=== PATIENT | male | born 1970 | race Caucasian/White ===

== ENCOUNTER 2016-11-16 13:36 | Inpatient (IN) | payer OTHER ==
[2016-11-16] MEDS ORDERED: Pantoprazole 40 MG Vial IVPUSH ONE (13:56)
[2016-11-16] MEDS ORDERED: Sodium Chloride 0.9% 2.5 ML Syringe FLUSH PRN (13:56)
[2016-11-16] MEDS ORDERED: Sodium Chloride 0.9% 1,000 ML IV ONE ×3 (13:56→19:52)
[2016-11-16] MEDS ORDERED: HYDROmorphone 2 MG/ML Syringe IVPUSH ONE ×2 (13:56→15:48)
[2016-11-16] MEDS ORDERED: Ondansetron 4 MG/2 ML SDV IVPUSH ONE (13:56)
[2016-11-16] MEDS ORDERED: Sodium Chloride 0.9% 10 ML Syringe FLUSH PRN (13:56)
--- NOTE | 2016-11-16 14:01 | EDM.PDOC ---
ED HPI GENERAL MEDICAL PROBLEM - General Chief Complaint: Chest Pain Stated Complaint: CHEST PAIN Time Seen by Provider: 11/16/16 13:38 - History of Present Illness INITIAL COMMENTS - FREE TEXT/NARRATIVE: HISTORY AND PHYSICAL: History of present illness: The patient is a 46-year-old male with a history of insulin requiring diabetes for which he was told by his physician here and a half ago he no longer needed the insulin and that he could monitor his blood sugars at home and watch his diet as his blood sugars have normalized. The patient presents today with sudden onset of lower midsternal chest pain and right upper quadrant pain that started suddenly while he was doing chores with his brother. It started yesterday afternoon and has been constant all night and has been associated with nausea and vomiting and dry heaves occasionally with blood seen. He did not take anything for medications. He has not had diarrhea and is not short of breath. He denies any coughing fevers or chills recently and has no urinary complaints nor any history. He says that there is more pain with any movement as well as with deep breaths and his abdominal pain has intensified since the vomiting. Patient has a history of pancreatitis requiring hospitalization in [place] about 2-1/2 years ago but he still has his gallbladder and he and his do not know why he got the pancreatitis. The patient denies any left-sided chest pain or left-sided abdominal pain. He states that the pain on the left side extends down his abdomen but is mostly localized in the right upper area. Patient denies any cardiac history Review of systems: As per history of present illness and below otherwise all systems reviewed and negative. Past medical history: As per history of present illness and as reviewed below otherwise noncontributory. Surgical history: As per history of present illness and as reviewed below otherwise noncontributory. Social history: No reported history of drug or alcohol abuse. Family history: As per history of present illness and as reviewed below otherwise noncontributory. Physical exam: General: Well-developed mildly overweight male who looks uncomfortable in the room and is holding the right side of his abdomen. His vital signs of been noted by me. HEENT: Atraumatic, normocephalic, pupils reactive, negative for conjunctival pallor or scleral icterus, mucous membranes tacky, throat clear, neck supple, nontender, trachea midline. Lungs: Clear to auscultation, breath sounds equal bilaterally, chest nontender. Heart: S1S2, regular, negative for clicks, rubs, or JVD. Abdomen: Soft, nondistended, moderate tenderness to palpation at the epigastrium and the right upper abdominal and right mid abdominal areas with some voluntary guarding but no involuntary guarding or rebound. Hypoactive bowel sounds. Negative for masses or hepatosplenomegaly. Negative for costovertebral tenderness. Pelvis: Stable nontender. Genitourinary: Deferred. Rectal: Deferred. Extremities: Atraumatic, negative for cords or calf pain. Neurovascular unremarkable. Neuro: Awake, alert, oriented. Cranial nerves II through XII unremarkable. Cerebellum unremarkable. Motor and sensory unremarkable throughout. Exam nonfocal. Diagnostics: EKG CBC CMP troponin amylase lipase serum ketones UA chest x-ray CT scan of the abdomen and pelvis Therapeutics: IV O2 monitor IV fluids Protonix Zofran Dilaudid Rocephin 1548: Testing results were discussed with the patient and the had left to go miner pick the children and we will discuss them with her when she returns. I' ve also discussed the case with our hospitalist Dr. Toscano. We will go ahead and admit to the hospital for pancreatitis and pneumonia and I have added a lactic acid and 2 blood cultures to complete the workup. The hospitalist would like Rocephin to be given. I will also give more IV fluids and more pain medication. Patient has not had any vomiting in the ER. Impression: Pancreatitis, retrocardiac pneumonia Definitive disposition and diagnosis as appropriate pending reevaluation and review of above. Mid-Sternal Chest Pain Score (Numeric/FACES): 10 - Related Data Allergies Allergy/AdvReac Type Severity Reaction Status Date / Time No Known Allergies Allergy Verified 11/16/16 13:46 Home Meds: Home Meds . [No Known Home Meds] 04/20/15 [History] Past Medical History Gastrointestinal History: Reports: Pancreatitis Other Gastrointestinal History: dx with pancreatitis 6 years ago. Endocrine/Metabolic History: Reports: Diabetes, type I Social & Family History - Family History Family Medical History: Noncontributory - Tobacco Use Smoking Status *Q: Never Smoker Years of Tobacco use: 2 Packs/Tins Daily: 0.5 Used Tobacco, but Quit: Yes Month Tobacco Last Used: 01/2015 - Recreational Drug Use Recreational Drug Use: No ED ROS GENERAL - Review of Systems Review Of Systems: ROS reveals no pertinent complaints other than HPI. ED EXAM, GENERAL - Physical Exam Exam: See Below (See dictation) Course - Vital Signs Last Recorded V/S: Last Vital Signs Temp 35.9 C 11/16/16 13:43 Pulse 95 11/16/16 13:43 Resp 18 11/16/16 13:43 BP 174/104 H 11/16/16 13:43 Pulse Ox 98 11/16/16 13:43 - Orders/Labs/Meds Orders: Active Orders 24 hr Category Date Time Status Patient Status [ADT] Stat ADT 11/16/16 15:49 Ordered Blood Glucose Check, Bedside [RC] ONETIME Care 11/16/16 13:55 Active Cardiac Monitoring [RC] . DIRECTED Care 11/16/16 13:55 Active EKG Documentation Completion [RC] STAT Care 11/16/16 13:55 Active Oxygen Therapy, ED [RC] ASDIRECTED Care 11/16/16 13:55 Active Pulse Oximetry [RC] ASDIRECTED Care 11/16/16 13:55 Active CULTURE BLOOD [BC] Stat Lab 11/16/16 15:48 Ordered CULTURE BLOOD [BC] Stat Lab 11/16/16 15:48 Ordered LACTIC ACID,WHOLE BLOOD [BG] Stat Lab 11/16/16 15:47 Ordered UA W/MICROSCOPIC [URIN] Stat Lab 11/16/16 13:55 Uncollected Sodium Chloride 0.9% [Normal Saline] 1,000 ml Med 11/16/16 15:48 Ordered IV STAT Sodium Chloride 0.9% [Saline Flush] Med 11/16/16 13:56 Active 10 ml FLUSH ASDIRECTED PRN Sodium Chloride 0.9% [Saline Flush] Med 11/16/16 13:56 Active 2.5 ml FLUSH ASDIRECTED PRN cefTRIAXone [Rocephin in Dextrose,Iso-Osm 1 GM/50 ML] 1 Med 11/16/16 15:48 Ordered gm Premix Bag 1 bag IV ONETIME Blood Culture x2 Reflex Set [OM.PC] Stat Oth 11/16/16 15:48 Ordered Saline Lock Insert [OM.PC] Stat Oth 11/16/16 13:55 Ordered Medication Orders Sodium Chloride (Normal Saline) 1,000 mls @ 999 mls/hr IV STAT ONE Stop: 11/16/16 16:48 Ceftriaxone Sodium/Dextrose 1 (gm/ Premix) 50 mls @ 100 mls/hr IV ONETIME ONE Stop: 11/16/16 16:17 Sodium Chloride (Saline Flush) 10 ml FLUSH ASDIRECTED PRN PRN Reason: Keep Vein Open Sodium Chloride (Saline Flush) 2.5 ml FLUSH ASDIRECTED PRN PRN Reason: Keep Vein Open Labs: Laboratory Tests 11/16/16 11/16/16 11/16/16 Range/Units 13:40 13:40 13:40 WBC 13.00 H (4.0-11.0) K/uL RBC 5.04 (4.50-5.90) M/uL Hct 43.0 (38.0-50.0) % RDW Std Deviation 40.0 (28.0-62.0) fl RDW Coeff of Jessica 13 (11.0-15.0) % Plt Count 217 (150-400) K/uL MPV 12.10 H (7.40-12.00) fL Neut % (Auto) 83.4 H (48.0-80.0) % Lymph % (Auto) 5.7 L (16.0-40.0) % [place] % (Auto) 8.9 (0.0-15.0) % Eos % (Auto) 1.8 (0.0-7.0) % Baso % (Auto) 0.2 (0.0-1.5) % Neut # (Auto) 10.8 H (1.4-5.7) K/uL Lymph # (Auto) 0.7 (0.6-2.4) K/uL [place] # (Auto) 1.2 H (0.0-0.8) K/uL Eos # (Auto) 0.2 (0.0-0.7) K/uL Baso # (Auto) 0.0 (0.0-0.1) K/uL Nucleated RBC % 0.0 /100WBC Nucleated RBCs # 0 K/uL Sodium 133 L (136-146) mmol/L Potassium 3.9 (3.5-5.1) mmol/L Chloride 104 (98-110) mmol/L Carbon Dioxide 17 L (21-31) mmol/L BUN 11 (6.0-23.0) mg/dL Creatinine 0.7 (0.6-1.5) mg/dL Est Cr Clr Drug Dosing 115.92 mL/min Estimated GFR (MDRD) > 60.0 ml/min Glucose 218 H (60-110) mg/dL Calcium 8.5 L (8.8-10.8) mg/dL Total Bilirubin 0.7 (0.1-1.5) mg/dL AST 22 (5-40) IU/L ALT 38 (8-54) IU/L Alkaline Phosphatase 79 (40-150) Troponin I < 0.10 (0.0-0.29) NG/ML Total Protein 7.7 (6.0-8.0) g/dL Albumin 4.1 (3.5-5.0) g/dL Globulin 3.6 H (2.0-3.5) g/dL Albumin/Globulin Ratio 1.1 L (1.3-2.8) Amylase 77 (10-90) U/L Lipase 142 H (7-80) U/L Ketones (NEG) 11/16/16 Range/Units 13:40 WBC (4.0-11.0) K/uL RBC (4.50-5.90) M/uL Hct (38.0-50.0) % RDW Std Deviation (28.0-62.0) fl RDW Coeff of Jessica (11.0-15.0) % Plt Count (150-400) K/uL MPV (7.40-12.00) fL Neut % (Auto) (48.0-80.0) % Lymph % (Auto) (16.0-40.0) % [place] % (Auto) (0.0-15.0) % Eos % (Auto) (0.0-7.0) % Baso % (Auto) (0.0-1.5) % Neut # (Auto) (1.4-5.7) K/uL Lymph # (Auto) (0.6-2.4) K/uL [place] # (Auto) (0.0-0.8) K/uL Eos # (Auto) (0.0-0.7) K/uL Baso # (Auto) (0.0-0.1) K/uL Nucleated RBC % /100WBC Nucleated RBCs # K/uL Sodium (136-146) mmol/L Potassium (3.5-5.1) mmol/L Chloride (98-110) mmol/L Carbon Dioxide (21-31) mmol/L BUN (6.0-23.0) mg/dL Creatinine (0.6-1.5) mg/dL Est Cr Clr Drug Dosing mL/min Estimated GFR (MDRD) ml/min Glucose (60-110) mg/dL Calcium (8.8-10.8) mg/dL Total Bilirubin (0.1-1.5) mg/dL AST (5-40) IU/L ALT (8-54) IU/L Alkaline Phosphatase (40-150) Troponin I (0.0-0.29) NG/ML Total Protein (6.0-8.0) g/dL Albumin (3.5-5.0) g/dL Globulin (2.0-3.5) g/dL Albumin/Globulin Ratio (1.3-2.8) Amylase (10-90) U/L Lipase (7-80) U/L Ketones NEGATIVE (NEG) Meds: Medications Generic Name Dose Route Start Last Admin Trade Name Freq PRN Reason Stop Dose Admin Sodium Chloride 1,000 mls @ 999 mls/hr 11/16/16 15:48 Normal Saline IV 11/16/16 16:48 STAT ONE Ceftriaxone Sodium/Dextrose 1 50 mls @ 100 mls/hr 11/16/16 15:48 gm/ Premix IV 11/16/16 16:17 ONETIME ONE Sodium Chloride 10 ml 11/16/16 13:56 Saline Flush FLUSH ASDIRECTED PRN Keep Vein Open Sodium Chloride 2.5 ml 11/16/16 13:56 Saline Flush FLUSH ASDIRECTED PRN Keep Vein Open Discontinued Medications Generic Name Dose Route Start Last Admin Trade Name Freq PRN Reason Stop Dose Admin Hydromorphone HCl 1 mg 11/16/16 13:56 11/16/16 14:06 Dilaudid IVPUSH 11/16/16 13:57 1 mg ONETIME ONE Administration Hydromorphone HCl 1 mg 11/16/16 15:48 Dilaudid IVPUSH 11/16/16 15:49 ONETIME ONE Sodium Chloride 1,000 mls @ 999 mls/hr 11/16/16 13:56 11/16/16 14:04 Normal Saline IV 11/16/16 14:56 999 mls/hr STAT ONE Administration Iopamidol 100 ml 11/16/16 15:15 11/16/16 15:16 Isovue Multipack-370 (76%) IVPUSH 11/16/16 15:16 100 ml ONETIME STA Administration Ondansetron HCl 4 mg 11/16/16 13:56 11/16/16 14:05 Zofran IVPUSH 11/16/16 13:57 4 mg ONETIME ONE Administration Pantoprazole Sodium 80 mg 11/16/16 13:56 11/16/16 14:06 Protonix Iv IVPUSH 11/16/16 13:57 80 mg .BOLUS ONE Administration Departure - Departure Time of Disposition: 15:51 Disposition: Admitted As Inpatient 67 Condition: good Clinical Impression: Pancreatitis Qualifiers: Chronicity: acute Pancreatitis type: unspecified pancreatitis type Acute pancreatitis complication: no infection or necrosis Qualified Code(s): K85.90 - Acute pancreatitis without necrosis or infection, unspecified Pneumonia Qualifiers: Pneumonia type: due to unspecified organism Laterality: unspecified laterality Lung location: unspecified part of lung Qualified Code(s): J18.9 - Pneumonia, unspecified organism Forms: ED Department Discharge - My Orders Last 24 Hours: My Active Orders 11/16/16 13:55 Blood Glucose Check, Bedside [RC] ONETIME Cardiac Monitoring [RC] . DIRECTED EKG Documentation Completion [RC] STAT Oxygen Therapy, ED [RC] ASDIRECTED Pulse Oximetry [RC] ASDIRECTED UA W/MICROSCOPIC [URIN] Stat Saline Lock Insert [OM.PC] Stat 11/16/16 13:56 Sodium Chloride 0.9% [Saline Flush] 10 ml FLUSH ASDIRECTED PRN Sodium Chloride 0.9% [Saline Flush] 2.5 ml FLUSH ASDIRECTED PRN 11/16/16 15:47 LACTIC ACID,WHOLE BLOOD [BG] Stat 11/16/16 15:48 CULTURE BLOOD [BC] Stat CULTURE BLOOD [BC] Stat Sodium Chloride 0.9% [Normal Saline] 1,000 ml IV STAT cefTRIAXone [Rocephin in Dextrose,Iso-Osm 1 GM/50 ML] 1 gm Premix Bag 1 bag IV ONETIME Blood Culture x2 Reflex Set [OM.PC] Stat 11/16/16 15:49 Patient Status [ADT] Stat - Assessment/Plan Last 24 Hours: My Active Orders 11/16/16 13:55 Blood Glucose Check, Bedside [RC] ONETIME Cardiac Monitoring [RC] . DIRECTED EKG Documentation Completion [RC] STAT Oxygen Therapy, ED [RC] ASDIRECTED Pulse Oximetry [RC] ASDIRECTED UA W/MICROSCOPIC [URIN] Stat Saline Lock Insert [OM.PC] Stat 11/16/16 13:56 Sodium Chloride 0.9% [Saline Flush] 10 ml FLUSH ASDIRECTED PRN Sodium Chloride 0.9% [Saline Flush] 2.5 ml FLUSH ASDIRECTED PRN 11/16/16 15:47 LACTIC ACID,WHOLE BLOOD [BG] Stat 11/16/16 15:48 CULTURE BLOOD [BC] Stat CULTURE BLOOD [BC] Stat Sodium Chloride 0.9% [Normal Saline] 1,000 ml IV STAT cefTRIAXone [Rocephin in Dextrose,Iso-Osm 1 GM/50 ML] 1 gm Premix Bag 1 bag IV ONETIME Blood Culture x2 Reflex Set [OM.PC] Stat 11/16/16 15:49 Patient Status [ADT] Stat
[2016-11-16 14:50] LABS: CHLORIDE,CL 104 mmol/L (98-110)
[2016-11-16 14:51] LABS: SODIUM,NA 133 mmol/L (136-146)
[2016-11-16] MEDS ORDERED: Iopamidol 755 MG/ML 500 ML Multipack Bottle IVPUSH STA (15:15)
--- NOTE | 2016-11-16 15:24 | CR ---
EXAMINATION: PA chest radiograph. HISTORY: Shortness of breath. FINDINGS: The trachea is midline. The cardiomediastinal silhouette is within normal limits. There is possible mild retrocardiac infiltrate. No pleural effusion or pneumothorax. Osseous structures appear unremarkable. IMPRESSION: Possible mild retrocardiac infiltrate.
--- NOTE | 2016-11-16 15:35 | CT ---
CT of the abdomen and pelvis with contrast. HISTORY: Pain TECHNIQUE: Axial CT images were obtained of the abdomen and pelvis following administration of 100 m L of Isovue-370 without complication. Coronal and sagittal reconstructions obtained. FINDINGS: There is atelectasis within the lung bases. There is likely at least mild fatty infiltration of the liver. The spleen, adrenal glands, and gallb ladder appear grossly unremarkable. There is moderate retroperitoneal stranding which appears to be centered around the head of the pancreas and the duodenum. No bulky retroperitoneal lymphadenopathy or abdominal ascites. No focal fluid collection. No hypoenhancing components of the pancreas is sugg est necrosis. Kidneys enhance and function symmetrically without evidence of obstructive uropathy. The large and small bowel are normal in caliber without evidence of obstruction. No focal pericoloni c inflammation or stranding. The appendix appears normal. The urinary bladder is normal. No bulky pe lvic lymphadenopathy. The prostate is mildly prominent. No suspicious osseous abnormalities identified. IMPRESSION: 1. Peripancreatic stranding consistent with pancreatitis. Alternatively this could represent peptic old disease/duodenitis. 2. Mild fatty infiltration of the liver.
[2016-11-16] MEDS ORDERED: cefTRIAXone 1 GM in Premix Bag 1 BAG IV ONE (15:48)
--- NOTE | 2016-11-16 16:20 | PCM.HP ---
<Deepali Jorgensen A - Last Filed: 11/16/16 16:29> H&P History of Present Illness - General Admit Problem/Dx: Admission Diagnosis/Problem Admission Diagnosis/Problem Pancreatitis - Related Data Allergies/Adverse Reactions: Allergies Allergy/AdvReac Type Severity Reaction Status Date / Time No Known Allergies Allergy Verified 11/16/16 13:46 Home Medications: Home Meds . [No Known Home Meds] 04/20/15 [History] Exam - Vital Signs Vital Signs: Last Vital Signs Temp 35.9 C 11/16/16 13:43 Pulse 95 11/16/16 13:43 Resp 18 11/16/16 13:43 BP 174/104 H 11/16/16 13:43 Pulse Ox 98 11/16/16 13:43 - Patient Data Lab Results last 24 hrs: Laboratory Results - last 24 hr 11/16/16 Range/Units 16:00 Lactate 1.1 (0.20-2.00) mmol/L Result Diagrams: 11/16/16 13:40 11/16/16 13:40 *Q Meaningful Use (ADM) - VTE *Q VTE Criteria *Q: - Stroke *Q Stroke Criteria *Q: - AMI *Q AMI Criteria *Q: Orders Last 24hrs: Active Orders 24 hr Category Date Time Status GLYCOSYLATED HEMOGLOBIN,HGBA1C [CHEM] Stat Lab 11/16/16 13:40 Received LIPID PANEL [CHEM] Stat Lab 11/16/16 16:11 Ordered Medication Orders Sodium Chloride (Normal Saline) 1,000 mls @ 999 mls/hr IV STAT ONE Stop: 11/16/16 16:48 Last Admin: 11/16/16 16:16 Dose: 999 mls/hr Sodium Chloride (Saline Flush) 10 ml FLUSH ASDIRECTED PRN PRN Reason: Keep Vein Open Sodium Chloride (Saline Flush) 2.5 ml FLUSH ASDIRECTED PRN PRN Reason: Keep Vein Open <Abdi Toscano - Last Filed: 11/16/16 16:45> H&P History of Present Illness - General Date of Service: 11/16/16 Admit Problem/Dx: Admission Diagnosis/Problem Admission Diagnosis/Problem Pancreatitis Source of Information: Patient - History of Present Illness Onset of Symptoms: Reports: sudden Symptom Onset Date: 11/15/16 Duration of Symptoms: Reports: Hour(s):, Getting worse Mid-Sternal Chest Pain Score (Numeric/FACES): 10 Past Medical History Gastrointestinal History: Reports: Pancreatitis Other Gastrointestinal History: dx with pancreatitis 6 years ago. Endocrine/Metabolic History: Reports: Diabetes, type II Social & Family History - Family History Family Medical History: Unobtainable Endocrine/Metabolic: Reports: Diabetes, type II - Tobacco Use Smoking Status *Q: Never Smoker Years of Tobacco use: 2 Packs/Tins Daily: 0.5 Used Tobacco, but Quit: Yes Month Tobacco Last Used: 01/2015 - Alcohol Use Alcohol Use History: Yes Days Per Week of Alcohol Use: 2 Number of Drinks Per Day: 6 Total Drinks Per Week: 12 - Recreational Drug Use Recreational Drug Use: No H&P Review of Systems - Review of Systems: Review Of Systems: See Below General: Reports: weight gain (lost weight and went off DM meds, now regained it ) Pulmonary: Reports: No Symptoms Cardiovascular: Reports: no symptoms, chest pain (lowere sternum and R rib margin tender, no Hx trauma) Gastrointestinal: Reports: Abdominal pain, Nausea, Vomiting Genitourinary: Reports: no symptoms Musculoskeletal: Reports: no symptoms Exam - Exam Exam: See Below - Vital Signs Vital Signs: Last Vital Signs Temp 35.9 C 11/16/16 13:43 Pulse 95 11/16/16 13:43 Resp 18 11/16/16 13:43 BP 174/104 H 11/16/16 13:43 Pulse Ox 98 11/16/16 13:43 Weight: 91.3 kg - Exam General: alert, oriented, moderate distress HEENT: Conjunctiva clear, Posterior pharynx clear Neck: supple Lungs: Clear to auscultation Cardiovascular: regular rate Abdomen: distention, rebound, tenderness, hypoactive bowel sounds (Male) Exam: Deferred Rectal (Males) Exam: Deferred Extremities: normal inspection Skin: warm, dry Neuro Extensive - Mental Status: alert, memory intact Psychiatric: alert, anxious - Patient Data Lab Results last 24 hrs: Laboratory Results - last 24 hr 11/16/16 11/16/16 11/16/16 Range/Units 13:40 13:40 13:40 WBC 13.00 H (4.0-11.0) K/uL RBC 5.04 (4.50-5.90) M/uL Hct 43.0 (38.0-50.0) % RDW Std Deviation 40.0 (28.0-62.0) fl RDW Coeff of Jessica 13 (11.0-15.0) % Plt Count 217 (150-400) K/uL MPV 12.10 H (7.40-12.00) fL Neut % (Auto) 83.4 H (48.0-80.0) % Lymph % (Auto) 5.7 L (16.0-40.0) % Terry % (Auto) 8.9 (0.0-15.0) % Eos % (Auto) 1.8 (0.0-7.0) % Baso % (Auto) 0.2 (0.0-1.5) % Neut # (Auto) 10.8 H (1.4-5.7) K/uL Lymph # (Auto) 0.7 (0.6-2.4) K/uL Terry # (Auto) 1.2 H (0.0-0.8) K/uL Eos # (Auto) 0.2 (0.0-0.7) K/uL Baso # (Auto) 0.0 (0.0-0.1) K/uL Nucleated RBC % 0.0 /100WBC Nucleated RBCs # 0 K/uL Sodium 133 L (136-146) mmol/L Potassium 3.9 (3.5-5.1) mmol/L Chloride 104 (98-110) mmol/L Carbon Dioxide 17 L (21-31) mmol/L BUN 11 (6.0-23.0) mg/dL Creatinine 0.7 (0.6-1.5) mg/dL Est Cr Clr Drug Dosing 115.92 mL/min Estimated GFR (MDRD) > 60.0 ml/min Glucose 218 H (60-110) mg/dL Calcium 8.5 L (8.8-10.8) mg/dL Total Bilirubin 0.7 (0.1-1.5) mg/dL AST 22 (5-40) IU/L ALT 38 (8-54) IU/L Alkaline Phosphatase 79 (40-150) Troponin I < 0.10 (0.0-0.29) NG/ML Total Protein 7.7 (6.0-8.0) g/dL Albumin 4.1 (3.5-5.0) g/dL Globulin 3.6 H (2.0-3.5) g/dL Albumin/Globulin Ratio 1.1 L (1.3-2.8) Amylase 77 (10-90) U/L Lipase 142 H (7-80) U/L Ketones (NEG) 11/16/16 Range/Units 13:40 WBC (4.0-11.0) K/uL RBC (4.50-5.90) M/uL Hct (38.0-50.0) % RDW Std Deviation (28.0-62.0) fl RDW Coeff of Jessica (11.0-15.0) % Plt Count (150-400) K/uL MPV (7.40-12.00) fL Neut % (Auto) (48.0-80.0) % Lymph % (Auto) (16.0-40.0) % Terry % (Auto) (0.0-15.0) % Eos % (Auto) (0.0-7.0) % Baso % (Auto) (0.0-1.5) % Neut # (Auto) (1.4-5.7) K/uL Lymph # (Auto) (0.6-2.4) K/uL Terry # (Auto) (0.0-0.8) K/uL Eos # (Auto) (0.0-0.7) K/uL Baso # (Auto) (0.0-0.1) K/uL Nucleated RBC % /100WBC Nucleated RBCs # K/uL Sodium (136-146) mmol/L Potassium (3.5-5.1) mmol/L Chloride (98-110) mmol/L Carbon Dioxide (21-31) mmol/L BUN (6.0-23.0) mg/dL Creatinine (0.6-1.5) mg/dL Est Cr Clr Drug Dosing mL/min Estimated GFR (MDRD) ml/min Glucose (60-110) mg/dL Calcium (8.8-10.8) mg/dL Total Bilirubin (0.1-1.5) mg/dL AST (5-40) IU/L ALT (8-54) IU/L Alkaline Phosphatase (40-150) Troponin I (0.0-0.29) NG/ML Total Protein (6.0-8.0) g/dL Albumin (3.5-5.0) g/dL Globulin (2.0-3.5) g/dL Albumin/Globulin Ratio (1.3-2.8) Amylase (10-90) U/L Lipase (7-80) U/L Ketones NEGATIVE (NEG) Result Diagrams: 11/16/16 13:40 11/16/16 13:40 *Q Meaningful Use (ADM) - VTE *Q VTE Criteria *Q: - Stroke *Q Stroke Criteria *Q: - AMI *Q AMI Criteria *Q: - Problem List (1) Diabetes SNOMED Code(s): 77314927 ICD Code: E11.9 - TYPE 2 DIABETES MELLITUS WITHOUT COMPLICATIONS Status: Acute Current Visit: Yes (2) Costochondritis SNOMED Code(s): 33371881 ICD Code: M94.0 - CHONDROCOSTAL JUNCTION SYNDROME [TIETZE] Status: Acute Current Visit: Yes Problem List Initiated/Reviewed/Updated: Yes Orders Last 24hrs: Active Orders 24 hr Category Date Time Status Patient Status [ADT] Stat ADT 11/16/16 15:49 Active Blood Glucose Check, Bedside [RC] ONETIME Care 11/16/16 13:55 Active Cardiac Monitoring [RC] . DIRECTED Care 11/16/16 13:55 Active EKG Documentation Completion [RC] STAT Care 11/16/16 13:55 Active Oxygen Therapy, ED [RC] ASDIRECTED Care 11/16/16 13:55 Active Pulse Oximetry [RC] ASDIRECTED Care 11/16/16 13:55 Active CULTURE BLOOD [BC] Stat Lab 11/16/16 15:48 Ordered CULTURE BLOOD [BC] Stat Lab 11/16/16 15:48 Ordered LACTIC ACID,WHOLE BLOOD [BG] Stat Lab 11/16/16 15:47 Ordered LIPID PANEL [CHEM] Stat Lab 11/16/16 16:11 Ordered UA W/MICROSCOPIC [URIN] Stat Lab 11/16/16 13:55 Uncollected Sodium Chloride 0.9% [Normal Saline] 1,000 ml Med 11/16/16 15:48 Active IV STAT Sodium Chloride 0.9% [Saline Flush] Med 11/16/16 13:56 Active 10 ml FLUSH ASDIRECTED PRN Sodium Chloride 0.9% [Saline Flush] Med 11/16/16 13:56 Active 2.5 ml FLUSH ASDIRECTED PRN cefTRIAXone [Rocephin in Dextrose,Iso-Osm 1 GM/50 ML] 1 Med 11/16/16 15:48 Active gm Premix Bag 1 bag IV ONETIME Blood Culture x2 Reflex Set [OM.PC] Stat Oth 11/16/16 15:48 Ordered Saline Lock Insert [OM.PC] Stat Ot 11/16/16 13:55 Ordered Medication Orders Sodium Chloride (Normal Saline) 1,000 mls @ 999 mls/hr IV STAT ONE Stop: 11/16/16 16:48 Ceftriaxone Sodium/Dextrose 1 (gm/ Premix) 50 mls @ 100 mls/hr IV ONETIME ONE Stop: 11/16/16 16:17 Sodium Chloride (Saline Flush) 10 ml FLUSH ASDIRECTED PRN PRN Reason: Keep Vein Open Sodium Chloride (Saline Flush) 2.5 ml FLUSH ASDIRECTED PRN PRN Reason: Keep Vein Open Assessment/Plan Comment:: pancretitis, 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 lipid status diabetes and heavy alcohol intake as causes of hypertriglyceridemia obesity costochondritis admitted for bowel rest iv fluid pain control, watch blood sugar
[2016-11-16] MEDS ORDERED: Ondansetron 4 MG/2 ML SDV IVPUSH PRN (16:46)
[2016-11-16] MEDS ORDERED: LORazepam 2 MG/ML MDV IM PRN (16:46)
[2016-11-16] MEDS ORDERED: NS + KCl 20mEq/L 1,000 ML IV SCH (17:15)
[2016-11-16] MEDS: HYDROmorphone 2 MG/ML Syringe IVPUSH PRN ×3 (18:26→22:44)
[2016-11-16] MEDS ORDERED: LORazepam 2 MG/ML MDV IVPUSH PRN (19:56)
[2016-11-16] MEDS: Pantoprazole 40 MG in Sodium Chloride 0.9% 10 ML IV SCH (20:45)
[2016-11-16] MEDS ORDERED: Pantoprazole 40 MG Vial IV SCH (21:00)
[2016-11-16] MEDS: Sodium Chloride 0.9% 1,000 ML IV SCH (21:59)
[2016-11-16] MEDS: Insulin Aspart 100 Units/ML 3 ML Pen SUBCUT SCH (23:52)
[2016-11-17] MEDS: HYDROmorphone 1 MG/ML Syringe IVPUSH PRN ×14 (00:46→23:14)
[2016-11-17] MEDS: Sodium Chloride 0.9% 1,000 ML IV SCH ×5 (02:43→20:37)
[2016-11-17 05:25] LABS: CHLORIDE,CL 108 mmol/L (98-110)
[2016-11-17 05:27] LABS: SODIUM,NA 136 mmol/L (136-146)
[2016-11-17] MEDS: Insulin Aspart 100 Units/ML 3 ML Pen SUBCUT SCH (06:10)
[2016-11-17] MEDS ORDERED: Ondansetron 4 MG/2 ML SDV IVPUSH PRN (08:17)
[2016-11-17] MEDS: Pantoprazole 40 MG in Sodium Chloride 0.9% 10 ML IV SCH ×2 (08:23→20:38)
--- NOTE | 2016-11-17 08:54 | PCM.PN ---
- General Info Date of Service: 11/17/16 Admission Dx/Problem (Free Text): Admission Diagnosis/Problem Admission Diagnosis/Problem Pancreatitis Subjective Update: Patient continues to complain of severe epigastric pain and then diffuse abdominal pain. He has no appetite but denies any nausea or vomiting. He denies any other acute concerns including chest pain, palpitations, shortness of breath , wheezing, cough, constipation, diarrhea. He notes over the previous weekend he had 15 beers and thinks that this may have contributed to his pancreatitis. He has been on medications in the past for diabetes and high cholesterol but states that he improved his diet was told that he no longer needed to take his medications. Functional Status: Reports: pain controlled, ambulating, urinating - Review of Systems General: Reports: No Symptoms HEENT: Reports: no symptoms Pulmonary: Reports: no symptoms Cardiovascular: Reports: No Symptoms Gastrointestinal: Reports: Abdominal pain (Severe epigastric pain with diffuse abdominal pain.), Decreased appetite. Denies: Nausea, Vomiting Genitourinary: Reports: no symptoms Musculoskeletal: Reports: no symptoms Skin: Reports: no symptoms Neurological: Reports: No Symptoms Psychiatric: Reports: no symptoms - Patient Data Vitals - most recent: Last Vital Signs Temp 97.6 F 11/17/16 04:00 Pulse 98 11/17/16 04:00 Resp 18 11/17/16 04:00 BP 118/59 L 11/17/16 04:00 Pulse Ox 95 11/17/16 04:00 Weight - most recent: 201 lb 4.513 oz I&O - last 24 hours: Intake & Output 11/16/16 11/17/16 11/17/16 22:59 06:59 14:59 Intake Total 1582 1000 1000 Output Total 1190 Balance 1582 -190 1000 Lab Results last 24 hrs: Laboratory Results - last 24 hr 11/16/16 11/16/16 11/16/16 Range/Units 16:00 16:00 16:59 WBC (4.0-11.0) K/uL RBC (4.50-5.90) M/uL Hgb (13.0-17.0) g/dL Hct (38.0-50.0) % MCV (80.0-98.0) fL MCH (27.0-32.0) pg MCHC (31.0-37.0) g/dL RDW Std Deviation (28.0-62.0) fl RDW Coeff of Jessica (11.0-15.0) % Plt Count (150-400) K/uL MPV (7.40-12.00) fL Neut % (Auto) (48.0-80.0) % Lymph % (Auto) (16.0-40.0) % [place] % (Auto) (0.0-15.0) % Eos % (Auto) (0.0-7.0) % Baso % (Auto) (0.0-1.5) % Neut # (Auto) (1.4-5.7) K/uL Lymph # (Auto) (0.6-2.4) K/uL Barbour # (Auto) (0.0-0.8) K/uL Eos # (Auto) (0.0-0.7) K/uL Baso # (Auto) (0.0-0.1) K/uL Nucleated RBC % /100WBC Nucleated RBCs # K/uL Lactate 1.1 (0.20-2.00) mmol/L Sodium (136-146) mmol/L Potassium (3.5-5.1) mmol/L Chloride (98-110) mmol/L Carbon Dioxide (21-31) mmol/L BUN (6.0-23.0) mg/dL Creatinine (0.6-1.5) mg/dL Est Cr Clr Drug Dosing mL/min Estimated GFR (MDRD) ml/min Glucose (60-110) mg/dL POC Glucose 179 H (60-110) mg/dL Calcium (8.8-10.8) mg/dL Magnesium (1.5-2.3) mEq/L Triglycerides [employer] Cholesterol 574 H (131-240) mg/dL LDL Cholesterol, Calc Not Reportable VLDL Cholesterol (5-55) mg/dL HDL Cholesterol 19 L (40-80) mg/dL Cholesterol/HDL Ratio 30.2 H (3.3-6.0) Urine Color Urine Appearance Urine pH (5.0-8.0) Ur Specific [place] (1.001-1.035) Urine Protein (NEGATIVE) mg/dL Urine Glucose (UA) (NEGATIVE) mg/dL Urine Ketones (NEGATIVE) mg/dL Urine Occult Blood (NEGATIVE) Urine Nitrite (NEGATIVE) Urine Bilirubin (NEGATIVE) Urine Urobilinogen (<2.0) EU/dL Ur Leukocyte Esterase (NEGATIVE) Urine RBC (0-2/HPF) Urine WBC (0-5/HPF) Ur Epithelial Cells (NONE-FEW) Urine Bacteria (NEGATIVE) 11/16/16 11/16/16 11/17/16 Range/Units 18:30 23:49 04:24 WBC (4.0-11.0) K/uL RBC (4.50-5.90) M/uL Hgb (13.0-17.0) g/dL Hct (38.0-50.0) % MCV (80.0-98.0) fL MCH (27.0-32.0) pg MCHC (31.0-37.0) g/dL RDW Std Deviation (28.0-62.0) fl RDW Coeff of Jessica (11.0-15.0) % Plt Count (150-400) K/uL MPV (7.40-12.00) fL Neut % (Auto) (48.0-80.0) % Lymph % (Auto) (16.0-40.0) % [place] % (Auto) (0.0-15.0) % Eos % (Auto) (0.0-7.0) % Baso % (Auto) (0.0-1.5) % Neut # (Auto) (1.4-5.7) K/uL Lymph # (Auto) (0.6-2.4) K/uL [place] # (Auto) (0.0-0.8) K/uL Eos # (Auto) (0.0-0.7) K/uL Baso # (Auto) (0.0-0.1) K/uL Nucleated RBC % /100WBC Nucleated RBCs # K/uL Lactate (0.20-2.00) mmol/L Sodium (136-146) mmol/L Potassium (3.5-5.1) mmol/L Chloride (98-110) mmol/L Carbon Dioxide (21-31) mmol/L BUN (6.0-23.0) mg/dL Creatinine (0.6-1.5) mg/dL Est Cr Clr Drug Dosing mL/min Estimated GFR (MDRD) ml/min Glucose (60-110) mg/dL POC Glucose 160 H (60-110) mg/dL Calcium (8.8-10.8) mg/dL Magnesium 2.0 (1.5-2.3) mEq/L Triglycerides Cholesterol (131-240) mg/dL LDL Cholesterol, Calc VLDL Cholesterol (5-55) mg/dL HDL Cholesterol (40-80) mg/dL Cholesterol/HDL Ratio (3.3-6.0) Urine Color YELLOW Urine Appearance CLEAR Urine pH 5.5 (5.0-8.0) Ur Specific [place] 1.010 (1.001-1.035) Urine Protein NEGATIVE (NEGATIVE) mg/dL Urine Glucose (UA) 100 H (NEGATIVE) mg/dL Urine Ketones NEGATIVE (NEGATIVE) mg/dL Urine Occult Blood NEGATIVE (NEGATIVE) Urine Nitrite NEGATIVE (NEGATIVE) Urine Bilirubin NEGATIVE (NEGATIVE) Urine Urobilinogen 0.2 (<2.0) EU/dL Ur Leukocyte Esterase NEGATIVE (NEGATIVE) Urine RBC 0-1 (0-2/HPF) Urine WBC 0-1 (0-5/HPF) Ur Epithelial Cells RARE (NONE-FEW) Urine Bacteria RARE (NEGATIVE) 11/17/16 11/17/16 11/17/16 Range/Units 04:24 04:24 06:09 WBC 11.62 H (4.0-11.0) K/uL RBC 4.44 L (4.50-5.90) M/uL Hgb 14.2 (13.0-17.0) g/dL Hct 38.9 (38.0-50.0) % MCV 87.6 (80.0-98.0) fL MCH 32.0 (27.0-32.0) pg MCHC 36.5 (31.0-37.0) g/dL RDW Std Deviation 42.5 (28.0-62.0) fl RDW Coeff of Jessica 13 (11.0-15.0) % Plt Count 181 (150-400) K/uL MPV 11.90 (7.40-12.00) fL Neut % (Auto) 78.9 (48.0-80.0) % Lymph % (Auto) 13.2 L (16.0-40.0) % [place] % (Auto) 4.9 (0.0-15.0) % Eos % (Auto) 2.8 (0.0-7.0) % Baso % (Auto) 0.2 (0.0-1.5) % Neut # (Auto) 9.2 H (1.4-5.7) K/uL Lymph # (Auto) 1.5 (0.6-2.4) K/uL [place] # (Auto) 0.6 (0.0-0.8) K/uL Eos # (Auto) 0.3 (0.0-0.7) K/uL Baso # (Auto) 0.0 (0.0-0.1) K/uL Nucleated RBC % 0.0 /100WBC Nucleated RBCs # 0 K/uL Lactate (0.20-2.00) mmol/L Sodium 136 (136-146) mmol/L Potassium 4.5 (3.5-5.1) mmol/L Chloride 108 (98-110) mmol/L Carbon Dioxide 19 L (21-31) mmol/L BUN 5 L (6.0-23.0) mg/dL Creatinine 0.7 (0.6-1.5) mg/dL Est Cr Clr Drug Dosing 115.92 mL/min Estimated GFR (MDRD) > 60.0 ml/min Glucose 169 H (60-110) mg/dL POC Glucose 151 H (60-110) mg/dL Calcium 7.6 L (8.8-10.8) mg/dL Magnesium (1.5-2.3) mEq/L Triglycerides Cholesterol (131-240) mg/dL LDL Cholesterol, Calc VLDL Cholesterol (5-55) mg/dL HDL Cholesterol (40-80) mg/dL Cholesterol/HDL Ratio (3.3-6.0) Urine Color Urine Appearance Urine pH (5.0-8.0) Ur Specific [place] (1.001-1.035) Urine Protein (NEGATIVE) mg/dL Urine Glucose (UA) (NEGATIVE) mg/dL Urine Ketones (NEGATIVE) mg/dL Urine Occult Blood (NEGATIVE) Urine Nitrite (NEGATIVE) Urine Bilirubin (NEGATIVE) Urine Urobilinogen (<2.0) EU/dL Ur Leukocyte Esterase (NEGATIVE) Urine RBC (0-2/HPF) Urine WBC (0-5/HPF) Ur Epithelial Cells (NONE-FEW) Urine Bacteria (NEGATIVE) Med Orders - Current: Current Medications Hydromorphone HCl (Dilaudid) 1 mg IVPUSH Q1H PRN PRN Reason: Pain (severe 7-10) Last Admin: 11/17/16 08:22 Dose: 1 mg Pantoprazole Sodium 40 mg/ (Sodium Chloride) 10 mls @ 300 mls/hr IV BID APOLINAR Last Admin: 11/17/16 08:23 Dose: 300 mls/hr Sodium Chloride (Normal Saline) 1,000 mls @ 250 mls/hr IV ASDIRECTED APOLINAR Last Admin: 11/17/16 07:07 Dose: 250 mls/hr Insulin Aspart (Novolog) 0 unit SUBCUT Q6HR APOLINAR PRN Reason: Protocol Last Admin: 11/17/16 06:10 Dose: 2 units Lorazepam (Ativan) 1 mg IVPUSH Q6H PRN PRN Reason: Anxiety Ondansetron HCl (Zofran) 4 mg IVPUSH Q4H PRN PRN Reason: Nausea/Vomiting Sodium Chloride (Saline Flush) 10 ml FLUSH ASDIRECTED PRN PRN Reason: Keep Vein Open Sodium Chloride (Saline Flush) 2.5 ml FLUSH ASDIRECTED PRN PRN Reason: Keep Vein Open Discontinued Medications Hydromorphone HCl (Dilaudid) 1 mg IVPUSH ONETIME ONE Stop: 11/16/16 13:57 Last Admin: 11/16/16 14:06 Dose: 1 mg Hydromorphone HCl (Dilaudid) 1 mg IVPUSH ONETIME ONE Stop: 11/16/16 15:49 Last Admin: 11/16/16 16:17 Dose: 1 mg Hydromorphone HCl (Dilaudid) 0.5 mg IVPUSH Q2H PRN PRN Reason: Pain (severe 7-10) Last Admin: 11/16/16 22:44 Dose: 0.5 mg Sodium Chloride (Normal Saline) 1,000 mls @ 999 mls/hr IV STAT ONE Stop: 11/16/16 14:56 Last Admin: 11/16/16 14:04 Dose: 999 mls/hr Sodium Chloride (Normal Saline) 1,000 mls @ 150 mls/hr IV STAT ONE Stop: 11/16/16 22:27 Last Infusion: 11/16/16 17:24 Dose: Infused Ceftriaxone Sodium/Dextrose 1 (gm/ Premix) 50 mls @ 100 mls/hr IV ONETIME ONE Stop: 11/16/16 16:17 Last Admin: 11/16/16 16:16 Dose: 100 mls/hr Potassium Chloride/Sodium Chloride (Normal Saline With 20 Meq Kcl) 1,000 mls @ 150 mls/hr IV ASDIRECTED APOLINAR Last Infusion: 11/16/16 20:37 Dose: 150 mls/hr Sodium Chloride (Normal Saline) 1,000 mls @ 999 mls/hr IV .Bolus ONE Stop: 11/16/16 20:52 Last Admin: 11/16/16 20:38 Dose: 999 mls/hr Iopamidol (Isovue Multipack-370 (76%)) 100 ml IVPUSH ONETIME STA Stop: 11/16/16 15:16 Last Admin: 11/16/16 15:16 Dose: 100 ml Lorazepam (Ativan) 1 mg IM Q6H PRN PRN Reason: Anxiety Ondansetron HCl (Zofran) 4 mg IVPUSH ONETIME ONE Stop: 11/16/16 13:57 Last Admin: 11/16/16 14:05 Dose: 4 mg Ondansetron HCl (Zofran) 8 mg IVPUSH Q8H PRN PRN Reason: Nausea/Vomiting Pantoprazole Sodium (Protonix Iv) 80 mg IVPUSH .BOLUS ONE Stop: 11/16/16 13:57 Last Admin: 11/16/16 14:06 Dose: 80 mg Pantoprazole Sodium (Protonix Iv) 40 mg IV Q12HR APOLINAR - Exam Quality Assessment: DVT prophylaxis (scd's) General: alert, oriented, cooperative, no acute distress Lungs: Clear to auscultation, Normal respiratory effort Cardiovascular: Regular Rate, Regular Rhythm Abdomen: bowel sounds present, soft, no distension, rebound, guarding, tenderness Extremities: no edema, no calf tenderness Peripheral Pulses: 2+: radial (L), radial (R) Skin: warm, dry, intact Neurological: no new focal deficit Psy/Mental Status: alert, normal affect, normal mood - Problem List & Annotations (1) Diabetes SNOMED Code(s): 79034697 Code(s): E11.9 - TYPE 2 DIABETES MELLITUS WITHOUT COMPLICATIONS Status: Acute Current Visit: Yes (2) Pancreatitis SNOMED Code(s): 46484568 Code(s): K85.90 - ACUTE PANCREATITIS WITHOUT NECROSIS OR INFECTION, UNSP Status: Acute Current Visit: Yes Qualifiers: Chronicity: acute Pancreatitis type: unspecified pancreatitis type Acute pancreatitis complication: no infection or necrosis Qualified Code(s): K85.90 - Acute pancreatitis without necrosis or infection, unspecified (3) Hypertriglyceridemia SNOMED Code(s): 377501054 Code(s): E78.1 - PURE HYPERGLYCERIDEMIA Status: Acute Current Visit: Yes - Problem List Review Problem List Initiated/Reviewed/Updated: Yes - My Orders Last 24 Hours: My Active Orders 11/17/16 08:12 Abdomen Ltd [US] Routine 11/17/16 08:14 LIPID PANEL [CHEM] Routine - Plan Plan:: 46-year-old male admitted with pancreatitis and hypertriglyceridemia. #1. Pancreatitis most likely secondary to hypertriglyceridemia: -Patient is n.p.o. and receiving IV fluids for hydration and Dilaudid for abdominal pain management. -Triglycerides are elevated at 2200. Cholesterol has improved to 374. Repeat triglycerides in the morning. -Right upper quadrant ultrasound shows fatty infiltration of the liver and pancreatitis. -Patient will be started on an insulin drip at 2 units/hour and titrated according to hourly blood sugar checks. -Can consider initiating gemfibrozil 600 mg twice a day. #2. Diabetes Lantus type II, uncontrolled: -Patient currently on insulin drip at 2 units per hour. Blood sugar checks every one hour with insulin drip titrated per protocol. Disposition: 2-4 days pending improvement.
[2016-11-17] MEDS: Enoxaparin 40 MG/0.4 ML Syringe SUBCUT SCH (10:51)
--- NOTE | 2016-11-17 11:48 | US ---
EXAMINATION: Right upper quadrant ultrasound HISTORY: Pancreatitis COMPARISON: 11/02/2016 TECHNIQUE: Grayscale and color Doppler images obtained of the abdomen. FINDINGS: The pancreas appears hypoechoic consistent with pancreatitis. The liver is at least modera tely increased in generalized echotexture. No focal hepatic mass. The gallbladder wall thickness is normal. No pericholecystic fluid or shadowing gallstones. The common bile duct measures 4 mm. The ri ght kidney measures 13 cm [id number] without evidence of hydronephrosis. Sonographic Booker sign i s negative. IMPRESSION: 1. Fatty infiltration of the liver. 2. Hypoechoic pancreas, consistent with pancreatitis. 3. No shadowing gallstones noted.
[2016-11-18] MEDS: HYDROmorphone 1 MG/ML Syringe IVPUSH PRN ×7 (00:35→10:23)
[2016-11-18] MEDS: Sodium Chloride 0.9% 1,000 ML IV SCH ×5 (01:56→23:08)
[2016-11-18 05:07] LABS: CHLORIDE,CL 109 mmol/L (98-110)
[2016-11-18 05:14] LABS: SODIUM,NA 134 mmol/L (136-146)
[2016-11-18] MEDS: Enoxaparin 40 MG/0.4 ML Syringe SUBCUT SCH (10:31)
[2016-11-18] MEDS: Pantoprazole 40 MG in Sodium Chloride 0.9% 10 ML IV SCH ×2 (10:32→21:09)
--- NOTE | 2016-11-18 11:22 | PCM.PN ---
- Review of Systems Systems Review Comment:: patient reports right upper quadrant pain. - Patient Data Vitals - most recent: Last Vital Signs Temp 35.9 C 11/18/16 07:00 Pulse 114 H 11/18/16 07:00 Resp 16 11/18/16 07:00 BP 126/73 11/18/16 07:00 Pulse Ox 93 L 11/18/16 07:00 Weight - most recent: 91.3 kg I&O - last 24 hours: Intake & Output 11/17/16 11/18/16 11/18/16 22:59 06:59 14:59 Intake Total 1883 2079 999 Output Total 1740 2660 Balance 143 -581 999 Lab Results last 24 hrs: Laboratory Results - last 24 hr 11/17/16 11/17/16 11/17/16 Range/Units 11:39 13:09 14:12 WBC (4.0-11.0) K/uL RBC (4.50-5.90) M/uL Hgb (13.0-17.0) g/dL Hct (38.0-50.0) % MCV (80.0-98.0) fL MCH (27.0-32.0) pg MCHC (31.0-37.0) g/dL RDW Std Deviation (28.0-62.0) fl RDW Coeff of Jessica (11.0-15.0) % Plt Count (150-400) K/uL MPV (7.40-12.00) fL Neut % (Auto) (48.0-80.0) % Lymph % (Auto) (16.0-40.0) % [place] % (Auto) (0.0-15.0) % Eos % (Auto) (0.0-7.0) % Baso % (Auto) (0.0-1.5) % Neut # (Auto) (1.4-5.7) K/uL Lymph # (Auto) (0.6-2.4) K/uL [place] # (Auto) (0.0-0.8) K/uL Eos # (Auto) (0.0-0.7) K/uL Baso # (Auto) (0.0-0.1) K/uL Nucleated RBC % /100WBC Nucleated RBCs # K/uL Sodium (136-146) mmol/L Potassium (3.5-5.1) mmol/L Chloride (98-110) mmol/L Carbon Dioxide (21-31) mmol/L BUN (6.0-23.0) mg/dL Creatinine (0.6-1.5) mg/dL Est Cr Clr Drug Dosing mL/min Estimated GFR (MDRD) ml/min Glucose (60-110) mg/dL POC Glucose 134 H 114 H 98 (60-110) mg/dL Calcium (8.8-10.8) mg/dL Troponin I (0.0-0.29) NG/ML Triglycerides (10-190) mg/dL 11/17/16 11/17/16 11/17/16 Range/Units 15:04 16:10 17:05 WBC (4.0-11.0) K/uL RBC (4.50-5.90) M/uL Hgb (13.0-17.0) g/dL Hct (38.0-50.0) % MCV (80.0-98.0) fL MCH (27.0-32.0) pg MCHC (31.0-37.0) g/dL RDW Std Deviation (28.0-62.0) fl RDW Coeff of Jessica (11.0-15.0) % Plt Count (150-400) K/uL MPV (7.40-12.00) fL Neut % (Auto) (48.0-80.0) % Lymph % (Auto) (16.0-40.0) % [place] % (Auto) (0.0-15.0) % Eos % (Auto) (0.0-7.0) % Baso % (Auto) (0.0-1.5) % Neut # (Auto) (1.4-5.7) K/uL Lymph # (Auto) (0.6-2.4) K/uL [place] # (Auto) (0.0-0.8) K/uL Eos # (Auto) (0.0-0.7) K/uL Baso # (Auto) (0.0-0.1) K/uL Nucleated RBC % /100WBC Nucleated RBCs # K/uL Sodium (136-146) mmol/L Potassium (3.5-5.1) mmol/L Chloride (98-110) mmol/L Carbon Dioxide (21-31) mmol/L BUN (6.0-23.0) mg/dL Creatinine (0.6-1.5) mg/dL Est Cr Clr Drug Dosing mL/min Estimated GFR (MDRD) ml/min Glucose (60-110) mg/dL POC Glucose 99 110 97 (60-110) mg/dL Calcium (8.8-10.8) mg/dL Troponin I (0.0-0.29) NG/ML Triglycerides (10-190) mg/dL 11/17/16 11/17/16 11/17/16 Range/Units 18:05 19:07 20:10 WBC (4.0-11.0) K/uL RBC (4.50-5.90) M/uL Hgb (13.0-17.0) g/dL Hct (38.0-50.0) % MCV (80.0-98.0) fL MCH (27.0-32.0) pg MCHC (31.0-37.0) g/dL RDW Std Deviation (28.0-62.0) fl RDW Coeff of Jessica (11.0-15.0) % Plt Count (150-400) K/uL MPV (7.40-12.00) fL Neut % (Auto) (48.0-80.0) % Lymph % (Auto) (16.0-40.0) % [place] % (Auto) (0.0-15.0) % Eos % (Auto) (0.0-7.0) % Baso % (Auto) (0.0-1.5) % Neut # (Auto) (1.4-5.7) K/uL Lymph # (Auto) (0.6-2.4) K/uL [place] # (Auto) (0.0-0.8) K/uL Eos # (Auto) (0.0-0.7) K/uL Baso # (Auto) (0.0-0.1) K/uL Nucleated RBC % /100WBC Nucleated RBCs # K/uL Sodium (136-146) mmol/L Potassium (3.5-5.1) mmol/L Chloride (98-110) mmol/L Carbon Dioxide (21-31) mmol/L BUN (6.0-23.0) mg/dL Creatinine (0.6-1.5) mg/dL Est Cr Clr Drug Dosing mL/min Estimated GFR (MDRD) ml/min Glucose (60-110) mg/dL POC Glucose 115 H 106 115 H (60-110) mg/dL Calcium (8.8-10.8) mg/dL Troponin I (0.0-0.29) NG/ML Triglycerides (10-190) mg/dL 11/17/16 11/17/16 11/17/16 Range/Units 21:04 22:12 22:30 WBC (4.0-11.0) K/uL RBC (4.50-5.90) M/uL Hgb (13.0-17.0) g/dL Hct (38.0-50.0) % MCV (80.0-98.0) fL MCH (27.0-32.0) pg MCHC (31.0-37.0) g/dL RDW Std Deviation (28.0-62.0) fl RDW Coeff of Jessica (11.0-15.0) % Plt Count (150-400) K/uL MPV (7.40-12.00) fL Neut % (Auto) (48.0-80.0) % Lymph % (Auto) (16.0-40.0) % [place] % (Auto) (0.0-15.0) % Eos % (Auto) (0.0-7.0) % Baso % (Auto) (0.0-1.5) % Neut # (Auto) (1.4-5.7) K/uL Lymph # (Auto) (0.6-2.4) K/uL [place] # (Auto) (0.0-0.8) K/uL Eos # (Auto) (0.0-0.7) K/uL Baso # (Auto) (0.0-0.1) K/uL Nucleated RBC % /100WBC Nucleated RBCs # K/uL Sodium (136-146) mmol/L Potassium (3.5-5.1) mmol/L Chloride (98-110) mmol/L Carbon Dioxide (21-31) mmol/L BUN (6.0-23.0) mg/dL Creatinine (0.6-1.5) mg/dL Est Cr Clr Drug Dosing mL/min Estimated GFR (MDRD) ml/min Glucose (60-110) mg/dL POC Glucose 111 H 149 H (60-110) mg/dL Calcium (8.8-10.8) mg/dL Troponin I < 0.10 (0.0-0.29) NG/ML Triglycerides (10-190) mg/dL 11/17/16 11/18/16 11/18/16 Range/Units 23:08 00:03 01:05 WBC (4.0-11.0) K/uL RBC (4.50-5.90) M/uL Hgb (13.0-17.0) g/dL Hct (38.0-50.0) % MCV (80.0-98.0) fL MCH (27.0-32.0) pg MCHC (31.0-37.0) g/dL RDW Std Deviation (28.0-62.0) fl RDW Coeff of Jessica (11.0-15.0) % Plt Count (150-400) K/uL MPV (7.40-12.00) fL Neut % (Auto) (48.0-80.0) % Lymph % (Auto) (16.0-40.0) % [place] % (Auto) (0.0-15.0) % Eos % (Auto) (0.0-7.0) % Baso % (Auto) (0.0-1.5) % Neut # (Auto) (1.4-5.7) K/uL Lymph # (Auto) (0.6-2.4) K/uL [place] # (Auto) (0.0-0.8) K/uL Eos # (Auto) (0.0-0.7) K/uL Baso # (Auto) (0.0-0.1) K/uL Nucleated RBC % /100WBC Nucleated RBCs # K/uL Sodium (136-146) mmol/L Potassium (3.5-5.1) mmol/L Chloride (98-110) mmol/L Carbon Dioxide (21-31) mmol/L BUN (6.0-23.0) mg/dL Creatinine (0.6-1.5) mg/dL Est Cr Clr Drug Dosing mL/min Estimated GFR (MDRD) ml/min Glucose (60-110) mg/dL POC Glucose 144 H 117 H 102 (60-110) mg/dL Calcium (8.8-10.8) mg/dL Troponin I (0.0-0.29) NG/ML Triglycerides (10-190) mg/dL 11/18/16 11/18/16 11/18/16 Range/Units 02:07 03:05 04:10 WBC (4.0-11.0) K/uL RBC (4.50-5.90) M/uL Hgb (13.0-17.0) g/dL Hct (38.0-50.0) % MCV (80.0-98.0) fL MCH (27.0-32.0) pg MCHC (31.0-37.0) g/dL RDW Std Deviation (28.0-62.0) fl RDW Coeff of Jessica (11.0-15.0) % Plt Count (150-400) K/uL MPV (7.40-12.00) fL Neut % (Auto) (48.0-80.0) % Lymph % (Auto) (16.0-40.0) % [place] % (Auto) (0.0-15.0) % Eos % (Auto) (0.0-7.0) % Baso % (Auto) (0.0-1.5) % Neut # (Auto) (1.4-5.7) K/uL Lymph # (Auto) (0.6-2.4) K/uL [place] # (Auto) (0.0-0.8) K/uL Eos # (Auto) (0.0-0.7) K/uL Baso # (Auto) (0.0-0.1) K/uL Nucleated RBC % /100WBC Nucleated RBCs # K/uL Sodium (136-146) mmol/L Potassium (3.5-5.1) mmol/L Chloride (98-110) mmol/L Carbon Dioxide (21-31) mmol/L BUN (6.0-23.0) mg/dL Creatinine (0.6-1.5) mg/dL Est Cr Clr Drug Dosing mL/min Estimated GFR (MDRD) ml/min Glucose (60-110) mg/dL POC Glucose 147 H 198 H 174 H (60-110) mg/dL Calcium (8.8-10.8) mg/dL Troponin I (0.0-0.29) NG/ML Triglycerides (10-190) mg/dL 11/18/16 11/18/16 11/18/16 Range/Units 04:30 04:30 04:30 WBC 8.61 (4.0-11.0) K/uL RBC 4.23 L (4.50-5.90) M/uL Hgb 13.0 (13.0-17.0) g/dL Hct 37.2 L (38.0-50.0) % MCV 87.9 (80.0-98.0) fL MCH 30.7 (27.0-32.0) pg MCHC 34.9 (31.0-37.0) g/dL RDW Std Deviation 43.3 (28.0-62.0) fl RDW Coeff of Jessica 14 (11.0-15.0) % Plt Count 144 L (150-400) K/uL MPV 12.00 (7.40-12.00) fL Neut % (Auto) 83.4 H (48.0-80.0) % Lymph % (Auto) 10.1 L (16.0-40.0) % [place] % (Auto) 4.5 (0.0-15.0) % Eos % (Auto) 1.9 (0.0-7.0) % Baso % (Auto) 0.1 (0.0-1.5) % Neut # (Auto) 7.2 H (1.4-5.7) K/uL Lymph # (Auto) 0.9 (0.6-2.4) K/uL [place] # (Auto) 0.4 (0.0-0.8) K/uL Eos # (Auto) 0.2 (0.0-0.7) K/uL Baso # (Auto) 0.0 (0.0-0.1) K/uL Nucleated RBC % 0.0 /100WBC Nucleated RBCs # 0 K/uL Sodium 134 L (136-146) mmol/L Potassium 3.7 (3.5-5.1) mmol/L Chloride 109 (98-110) mmol/L Carbon Dioxide 16 L (21-31) mmol/L BUN 4 L (6.0-23.0) mg/dL Creatinine 0.7 (0.6-1.5) mg/dL Est Cr Clr Drug Dosing 115.92 mL/min Estimated GFR (MDRD) > 60.0 ml/min Glucose 181 H (60-110) mg/dL POC Glucose (60-110) mg/dL Calcium 8.6 L (8.8-10.8) mg/dL Troponin I < 0.10 (0.0-0.29) NG/ML Triglycerides 938 H (10-190) mg/dL 11/18/16 11/18/16 11/18/16 Range/Units 05:07 06:09 07:03 WBC (4.0-11.0) K/uL RBC (4.50-5.90) M/uL Hgb (13.0-17.0) g/dL Hct (38.0-50.0) % MCV (80.0-98.0) fL MCH (27.0-32.0) pg MCHC (31.0-37.0) g/dL RDW Std Deviation (28.0-62.0) fl RDW Coeff of Jessica (11.0-15.0) % Plt Count (150-400) K/uL MPV (7.40-12.00) fL Neut % (Auto) (48.0-80.0) % Lymph % (Auto) (16.0-40.0) % [place] % (Auto) (0.0-15.0) % Eos % (Auto) (0.0-7.0) % Baso % (Auto) (0.0-1.5) % Neut # (Auto) (1.4-5.7) K/uL Lymph # (Auto) (0.6-2.4) K/uL [place] # (Auto) (0.0-0.8) K/uL Eos # (Auto) (0.0-0.7) K/uL Baso # (Auto) (0.0-0.1) K/uL Nucleated RBC % /100WBC Nucleated RBCs # K/uL Sodium (136-146) mmol/L Potassium (3.5-5.1) mmol/L Chloride (98-110) mmol/L Carbon Dioxide (21-31) mmol/L BUN (6.0-23.0) mg/dL Creatinine (0.6-1.5) mg/dL Est Cr Clr Drug Dosing mL/min Estimated GFR (MDRD) ml/min Glucose (60-110) mg/dL POC Glucose 126 H 117 H 114 H (60-110) mg/dL Calcium (8.8-10.8) mg/dL Troponin I (0.0-0.29) NG/ML Triglycerides (10-190) mg/dL 11/18/16 11/18/16 11/18/16 Range/Units 08:10 09:24 10:05 WBC (4.0-11.0) K/uL RBC (4.50-5.90) M/uL Hgb (13.0-17.0) g/dL Hct (38.0-50.0) % MCV (80.0-98.0) fL MCH (27.0-32.0) pg MCHC (31.0-37.0) g/dL RDW Std Deviation (28.0-62.0) fl RDW Coeff of Jessica (11.0-15.0) % Plt Count (150-400) K/uL MPV (7.40-12.00) fL Neut % (Auto) (48.0-80.0) % Lymph % (Auto) (16.0-40.0) % [place] % (Auto) (0.0-15.0) % Eos % (Auto) (0.0-7.0) % Baso % (Auto) (0.0-1.5) % Neut # (Auto) (1.4-5.7) K/uL Lymph # (Auto) (0.6-2.4) K/uL [place] # (Auto) (0.0-0.8) K/uL Eos # (Auto) (0.0-0.7) K/uL Baso # (Auto) (0.0-0.1) K/uL Nucleated RBC % /100WBC Nucleated RBCs # K/uL Sodium (136-146) mmol/L Potassium (3.5-5.1) mmol/L Chloride (98-110) mmol/L Carbon Dioxide (21-31) mmol/L BUN (6.0-23.0) mg/dL Creatinine (0.6-1.5) mg/dL Est Cr Clr Drug Dosing mL/min Estimated GFR (MDRD) ml/min Glucose (60-110) mg/dL POC Glucose 124 H 116 H 114 H (60-110) mg/dL Calcium (8.8-10.8) mg/dL Troponin I (0.0-0.29) NG/ML Triglycerides (10-190) mg/dL 11/18/16 11/18/16 Range/Units 10:28 11:04 WBC (4.0-11.0) K/uL RBC (4.50-5.90) M/uL Hgb (13.0-17.0) g/dL Hct (38.0-50.0) % MCV (80.0-98.0) fL MCH (27.0-32.0) pg MCHC (31.0-37.0) g/dL RDW Std Deviation (28.0-62.0) fl RDW Coeff of Jessica (11.0-15.0) % Plt Count (150-400) K/uL MPV (7.40-12.00) fL Neut % (Auto) (48.0-80.0) % Lymph % (Auto) (16.0-40.0) % [place] % (Auto) (0.0-15.0) % Eos % (Auto) (0.0-7.0) % Baso % (Auto) (0.0-1.5) % Neut # (Auto) (1.4-5.7) K/uL Lymph # (Auto) (0.6-2.4) K/uL [place] # (Auto) (0.0-0.8) K/uL Eos # (Auto) (0.0-0.7) K/uL Baso # (Auto) (0.0-0.1) K/uL Nucleated RBC % /100WBC Nucleated RBCs # K/uL Sodium (136-146) mmol/L Potassium (3.5-5.1) mmol/L Chloride (98-110) mmol/L Carbon Dioxide (21-31) mmol/L BUN (6.0-23.0) mg/dL Creatinine (0.6-1.5) mg/dL Est Cr Clr Drug Dosing mL/min Estimated GFR (MDRD) ml/min Glucose (60-110) mg/dL POC Glucose 127 H (60-110) mg/dL Calcium (8.8-10.8) mg/dL Troponin I < 0.10 (0.0-0.29) NG/ML Triglycerides (10-190) mg/dL [place] Results last 24 hrs: Microbiology 11/16/16 16:08 Aerobic Blood Culture - Preliminary Blood - Venous - Lab Draw NO GROWTH AFTER 1 DAY Anaerobic Blood Culture - Preliminary NO GROWTH AFTER 1 DAY 11/16/16 16:00 Aerobic Blood Culture - Preliminary Blood - Venous NO GROWTH AFTER 1 DAY Anaerobic Blood Culture - Preliminary NO GROWTH AFTER 1 DAY Med Orders - Current: Current Medications Enoxaparin Sodium (Lovenox) 40 mg SUBCUT Q24H APOLINAR Last Admin: 11/18/16 10:31 Dose: 40 mg Hydromorphone HCl (Dilaudid [employer] 6 Mg In Ns 30 Ml) 6 mg IV ASDIRECTED PRN; Protocol PRN Reason: Pain Pantoprazole Sodium 40 mg/ (Sodium Chloride) 10 mls @ 300 mls/hr IV BID APOLINAR Last Admin: 11/18/16 10:32 Dose: 300 mls/hr Sodium Chloride (Normal Saline) 1,000 mls @ 250 mls/hr IV ASDIRECTED APOLINAR Last Admin: 11/18/16 07:39 Dose: 250 mls/hr Insulin Human Regular 100 unit (/ Sodium Chloride) 100 mls @ 2 mls/hr IV Q24H APOLINAR; 2 UNIT/HR PRN Reason: Protocol Last Titration: 11/18/16 05:00 Dose: 1 unit/hr, 1 mls/hr Lorazepam (Ativan) 1 mg IVPUSH Q6H PRN PRN Reason: Anxiety Last Admin: 11/17/16 15:29 Dose: 1 mg Ondansetron HCl (Zofran) 4 mg IVPUSH Q4H PRN PRN Reason: Nausea/Vomiting Last Admin: 11/17/16 13:29 Dose: 4 mg Sodium Chloride (Saline Flush) 10 ml FLUSH ASDIRECTED PRN PRN Reason: Keep Vein Open Sodium Chloride (Saline Flush) 2.5 ml FLUSH ASDIRECTED PRN PRN Reason: Keep Vein Open Discontinued Medications Hydromorphone HCl (Dilaudid) 1 mg IVPUSH ONETIME ONE Stop: 11/16/16 13:57 Last Admin: 11/16/16 14:06 Dose: 1 mg Hydromorphone HCl (Dilaudid) 1 mg IVPUSH ONETIME ONE Stop: 11/16/16 15:49 Last Admin: 11/16/16 16:17 Dose: 1 mg Hydromorphone HCl (Dilaudid) 0.5 mg IVPUSH Q2H PRN PRN Reason: Pain (severe 7-10) Last Admin: 11/16/16 22:44 Dose: 0.5 mg Hydromorphone HCl (Dilaudid) 1 mg IVPUSH Q1H PRN PRN Reason: Pain (severe 7-10) Last Admin: 11/18/16 10:23 Dose: 1 mg Sodium Chloride (Normal Saline) 1,000 mls @ 999 mls/hr IV STAT ONE Stop: 11/16/16 14:56 Last Admin: 11/16/16 14:04 Dose: 999 mls/hr Sodium Chloride (Normal Saline) 1,000 mls @ 150 mls/hr IV STAT ONE Stop: 11/16/16 22:27 Last Infusion: 11/16/16 17:24 Dose: Infused Ceftriaxone Sodium/Dextrose 1 (gm/ Premix) 50 mls @ 100 mls/hr IV ONETIME ONE Stop: 11/16/16 16:17 Last Admin: 11/16/16 16:16 Dose: 100 mls/hr Potassium Chloride/Sodium Chloride (Normal Saline With 20 Meq Kcl) 1,000 mls @ 150 mls/hr IV ASDIRECTED [facility] Last Infusion: 11/16/16 20:37 Dose: 150 mls/hr Sodium Chloride (Normal Saline) 1,000 mls @ 999 mls/hr IV .Bolus ONE Stop: 11/16/16 20:52 Last Admin: 11/16/16 20:38 Dose: 999 mls/hr Insulin Aspart (Novolog) 0 unit SUBCUT Q6HR APOLINAR PRN Reason: Protocol Last Admin: 11/17/16 06:10 Dose: 2 units Iopamidol (Isovue Multipack-370 (76%)) 100 ml IVPUSH ONETIME STA Stop: 11/16/16 15:16 Last Admin: 11/16/16 15:16 Dose: 100 ml Lorazepam (Ativan) 1 mg IM Q6H PRN PRN Reason: Anxiety Ondansetron HCl (Zofran) 4 mg IVPUSH ONETIME ONE Stop: 11/16/16 13:57 Last Admin: 11/16/16 14:05 Dose: 4 mg Ondansetron HCl (Zofran) 8 mg IVPUSH Q8H PRN PRN Reason: Nausea/Vomiting Pantoprazole Sodium (Protonix Iv) 80 mg IVPUSH .BOLUS ONE Stop: 11/16/16 13:57 Last Admin: 11/16/16 14:06 Dose: 80 mg Pantoprazole Sodium (Protonix Iv) 40 mg IV Q12HR APOLINAR - Exam General: alert, oriented Lungs: Clear to auscultation, Normal respiratory effort Cardiovascular: Regular Rate, Regular Rhythm Abdomen: bowel sounds present, soft, tenderness (Right upper quadrant) Extremities: no edema - Problem List Review Problem List Initiated/Reviewed/Updated: Yes - My Orders Last 24 Hours: My Active Orders 11/17/16 22:22 EKG 12 Lead [EKG Documentation Completion] [RC] STAT 11/18/16 11:08 HYDROmorphone/Normal Saline [Dilaudid CHOCOLATE MOLDER 6 MG in NS 30 ML] 6 mg IV ASDIRECTED PRN 11/19/16 05:11 LIPASE [CHEM] AM - Plan Plan:: 46-year-old male admitted with pancreatitis and hypertriglyceridemia. #1. Hypertriglyceridemia induces pancreatitis : patient still reporting pain. we will swithc to dilaudid CHOCOLATE MOLDER, will continue IV fluids, and bowel rest. #2. Diabetes type II, uncontrolled: -continue insulin drip due to elevated triglycerides in the setting of acute pancreatitis.
[2016-11-18] MEDS: HYDROmorphone/Normal Saline 6 MG/30 ML PCA Vial IV PRN ×2 (12:25→23:14)
[2016-11-19] MEDS: Sodium Chloride 0.9% 1,000 ML IV SCH ×4 (03:13→19:06)
[2016-11-19] MEDS: HYDROmorphone/Normal Saline 6 MG/30 ML PCA Vial IV PRN ×3 (04:50→19:01)
[2016-11-19 05:31] LABS: CHLORIDE,CL 107 mmol/L (98-110); SODIUM,NA 136 mmol/L (136-146)
[2016-11-19] MEDS: Pantoprazole 40 MG in Sodium Chloride 0.9% 10 ML IV SCH ×2 (10:12→20:24)
[2016-11-19] MEDS: Enoxaparin 40 MG/0.4 ML Syringe SUBCUT SCH (10:12)
--- NOTE | 2016-11-19 11:01 | PCM.PN ---
- Review of Systems Systems Review Comment:: abdominal pain is improving slowly - Patient Data Vitals - most recent: Last Vital Signs Temp 35.6 C 11/19/16 07:00 Pulse 90 11/19/16 07:00 Resp 16 11/19/16 07:00 BP 129/73 11/19/16 07:00 Pulse Ox 95 11/19/16 07:00 Weight - most recent: 91.3 kg I&O - last 24 hours: Intake & Output 11/18/16 11/19/16 11/19/16 22:59 06:59 14:59 Intake Total 0 1032 Output Total 1500 2310 Balance -1500 -1278 Lab Results last 24 hrs: Laboratory Results - last 24 hr 11/18/16 11/18/16 11/18/16 Range/Units 11:04 12:10 13:17 WBC (4.0-11.0) K/uL RBC (4.50-5.90) M/uL Hgb (13.0-17.0) g/dL Hct (38.0-50.0) % MCV (80.0-98.0) fL MCH (27.0-32.0) pg MCHC (31.0-37.0) g/dL RDW Std Deviation (28.0-62.0) fl RDW Coeff of Jessica (11.0-15.0) % Plt Count (150-400) K/uL MPV (7.40-12.00) fL Neut % (Auto) (48.0-80.0) % Lymph % (Auto) (16.0-40.0) % Anderson % (Auto) (0.0-15.0) % Eos % (Auto) (0.0-7.0) % Baso % (Auto) (0.0-1.5) % Neut # (Auto) (1.4-5.7) K/uL Lymph # (Auto) (0.6-2.4) K/uL Anderson # (Auto) (0.0-0.8) K/uL Eos # (Auto) (0.0-0.7) K/uL Baso # (Auto) (0.0-0.1) K/uL Nucleated RBC % /100WBC Nucleated RBCs # K/uL Sodium (136-146) mmol/L Potassium (3.5-5.1) mmol/L Chloride (98-110) mmol/L Carbon Dioxide (21-31) mmol/L BUN (6.0-23.0) mg/dL Creatinine (0.6-1.5) mg/dL Est Cr Clr Drug Dosing mL/min Estimated GFR (MDRD) ml/min Glucose (60-110) mg/dL POC Glucose 127 H 118 H 108 (60-110) mg/dL Calcium (8.8-10.8) mg/dL Triglycerides (10-190) mg/dL Lipase (7-80) U/L 11/18/16 11/18/16 11/18/16 Range/Units 14:10 15:01 16:01 WBC (4.0-11.0) K/uL RBC (4.50-5.90) M/uL Hgb (13.0-17.0) g/dL Hct (38.0-50.0) % MCV (80.0-98.0) fL MCH (27.0-32.0) pg MCHC (31.0-37.0) g/dL RDW Std Deviation (28.0-62.0) fl RDW Coeff of Jessica (11.0-15.0) % Plt Count (150-400) K/uL MPV (7.40-12.00) fL Neut % (Auto) (48.0-80.0) % Lymph % (Auto) (16.0-40.0) % Anderson % (Auto) (0.0-15.0) % Eos % (Auto) (0.0-7.0) % Baso % (Auto) (0.0-1.5) % Neut # (Auto) (1.4-5.7) K/uL Lymph # (Auto) (0.6-2.4) K/uL Anderson # (Auto) (0.0-0.8) K/uL Eos # (Auto) (0.0-0.7) K/uL Baso # (Auto) (0.0-0.1) K/uL Nucleated RBC % /100WBC Nucleated RBCs # K/uL Sodium (136-146) mmol/L Potassium (3.5-5.1) mmol/L Chloride (98-110) mmol/L Carbon Dioxide (21-31) mmol/L BUN (6.0-23.0) mg/dL Creatinine (0.6-1.5) mg/dL Est Cr Clr Drug Dosing mL/min Estimated GFR (MDRD) ml/min Glucose (60-110) mg/dL POC Glucose 108 109 102 (60-110) mg/dL Calcium (8.8-10.8) mg/dL Triglycerides (10-190) mg/dL Lipase (7-80) U/L 11/18/16 11/18/16 11/18/16 Range/Units 17:07 18:00 19:04 WBC (4.0-11.0) K/uL RBC (4.50-5.90) M/uL Hgb (13.0-17.0) g/dL Hct (38.0-50.0) % MCV (80.0-98.0) fL MCH (27.0-32.0) pg MCHC (31.0-37.0) g/dL RDW Std Deviation (28.0-62.0) fl RDW Coeff of Jessica (11.0-15.0) % Plt Count (150-400) K/uL MPV (7.40-12.00) fL Neut % (Auto) (48.0-80.0) % Lymph % (Auto) (16.0-40.0) % Anderson % (Auto) (0.0-15.0) % Eos % (Auto) (0.0-7.0) % Baso % (Auto) (0.0-1.5) % Neut # (Auto) (1.4-5.7) K/uL Lymph # (Auto) (0.6-2.4) K/uL Anderson # (Auto) (0.0-0.8) K/uL Eos # (Auto) (0.0-0.7) K/uL Baso # (Auto) (0.0-0.1) K/uL Nucleated RBC % /100WBC Nucleated RBCs # K/uL Sodium (136-146) mmol/L Potassium (3.5-5.1) mmol/L Chloride (98-110) mmol/L Carbon Dioxide (21-31) mmol/L BUN (6.0-23.0) mg/dL Creatinine (0.6-1.5) mg/dL Est Cr Clr Drug Dosing mL/min Estimated GFR (MDRD) ml/min Glucose (60-110) mg/dL POC Glucose 90 123 H 118 H (60-110) mg/dL Calcium (8.8-10.8) mg/dL Triglycerides (10-190) mg/dL Lipase (7-80) U/L 11/18/16 11/18/16 11/18/16 Range/Units 20:10 21:08 22:03 WBC (4.0-11.0) K/uL RBC (4.50-5.90) M/uL Hgb (13.0-17.0) g/dL Hct (38.0-50.0) % MCV (80.0-98.0) fL MCH (27.0-32.0) pg MCHC (31.0-37.0) g/dL RDW Std Deviation (28.0-62.0) fl RDW Coeff of Jessica (11.0-15.0) % Plt Count (150-400) K/uL MPV (7.40-12.00) fL Neut % (Auto) (48.0-80.0) % Lymph % (Auto) (16.0-40.0) % Anderson % (Auto) (0.0-15.0) % Eos % (Auto) (0.0-7.0) % Baso % (Auto) (0.0-1.5) % Neut # (Auto) (1.4-5.7) K/uL Lymph # (Auto) (0.6-2.4) K/uL Anderson # (Auto) (0.0-0.8) K/uL Eos # (Auto) (0.0-0.7) K/uL Baso # (Auto) (0.0-0.1) K/uL Nucleated RBC % /100WBC Nucleated RBCs # K/uL Sodium (136-146) mmol/L Potassium (3.5-5.1) mmol/L Chloride (98-110) mmol/L Carbon Dioxide (21-31) mmol/L BUN (6.0-23.0) mg/dL Creatinine (0.6-1.5) mg/dL Est Cr Clr Drug Dosing mL/min Estimated GFR (MDRD) ml/min Glucose (60-110) mg/dL POC Glucose 120 H 108 120 H (60-110) mg/dL Calcium (8.8-10.8) mg/dL Triglycerides (10-190) mg/dL Lipase (7-80) U/L 11/18/16 11/18/16 11/19/16 Range/Units 23:05 23:54 01:02 WBC (4.0-11.0) K/uL RBC (4.50-5.90) M/uL Hgb (13.0-17.0) g/dL Hct (38.0-50.0) % MCV (80.0-98.0) fL MCH (27.0-32.0) pg MCHC (31.0-37.0) g/dL RDW Std Deviation (28.0-62.0) fl RDW Coeff of Jessica (11.0-15.0) % Plt Count (150-400) K/uL MPV (7.40-12.00) fL Neut % (Auto) (48.0-80.0) % Lymph % (Auto) (16.0-40.0) % Anderson % (Auto) (0.0-15.0) % Eos % (Auto) (0.0-7.0) % Baso % (Auto) (0.0-1.5) % Neut # (Auto) (1.4-5.7) K/uL Lymph # (Auto) (0.6-2.4) K/uL Anderson # (Auto) (0.0-0.8) K/uL Eos # (Auto) (0.0-0.7) K/uL Baso # (Auto) (0.0-0.1) K/uL Nucleated RBC % /100WBC Nucleated RBCs # K/uL Sodium (136-146) mmol/L Potassium (3.5-5.1) mmol/L Chloride (98-110) mmol/L Carbon Dioxide (21-31) mmol/L BUN (6.0-23.0) mg/dL Creatinine (0.6-1.5) mg/dL Est Cr Clr Drug Dosing mL/min Estimated GFR (MDRD) ml/min Glucose (60-110) mg/dL POC Glucose 93 105 105 (60-110) mg/dL Calcium (8.8-10.8) mg/dL Triglycerides (10-190) mg/dL Lipase (7-80) U/L 11/19/16 11/19/16 11/19/16 Range/Units 02:01 03:06 04:07 WBC (4.0-11.0) K/uL RBC (4.50-5.90) M/uL Hgb (13.0-17.0) g/dL Hct (38.0-50.0) % MCV (80.0-98.0) fL MCH (27.0-32.0) pg MCHC (31.0-37.0) g/dL RDW Std Deviation (28.0-62.0) fl RDW Coeff of Jessica (11.0-15.0) % Plt Count (150-400) K/uL MPV (7.40-12.00) fL Neut % (Auto) (48.0-80.0) % Lymph % (Auto) (16.0-40.0) % Anderson % (Auto) (0.0-15.0) % Eos % (Auto) (0.0-7.0) % Baso % (Auto) (0.0-1.5) % Neut # (Auto) (1.4-5.7) K/uL Lymph # (Auto) (0.6-2.4) K/uL Anderson # (Auto) (0.0-0.8) K/uL Eos # (Auto) (0.0-0.7) K/uL Baso # (Auto) (0.0-0.1) K/uL Nucleated RBC % /100WBC Nucleated RBCs # K/uL Sodium (136-146) mmol/L Potassium (3.5-5.1) mmol/L Chloride (98-110) mmol/L Carbon Dioxide (21-31) mmol/L BUN (6.0-23.0) mg/dL Creatinine (0.6-1.5) mg/dL Est Cr Clr Drug Dosing mL/min Estimated GFR (MDRD) ml/min Glucose (60-110) mg/dL POC Glucose 90 95 95 (60-110) mg/dL Calcium (8.8-10.8) mg/dL Triglycerides (10-190) mg/dL Lipase (7-80) U/L 11/19/16 11/19/16 11/19/16 Range/Units 04:50 04:50 04:58 WBC 7.32 (4.0-11.0) K/uL RBC 4.07 L (4.50-5.90) M/uL Hgb 12.3 L (13.0-17.0) g/dL Hct 36.1 L (38.0-50.0) % MCV 88.7 (80.0-98.0) fL MCH 30.2 (27.0-32.0) pg MCHC 34.1 (31.0-37.0) g/dL RDW Std Deviation 43.7 (28.0-62.0) fl RDW Coeff of Jessica 14 (11.0-15.0) % Plt Count 126 L (150-400) K/uL MPV 11.60 (7.40-12.00) fL Neut % (Auto) 70.7 (48.0-80.0) % Lymph % (Auto) 16.7 (16.0-40.0) % Anderson % (Auto) 8.5 (0.0-15.0) % Eos % (Auto) 3.8 (0.0-7.0) % Baso % (Auto) 0.3 (0.0-1.5) % Neut # (Auto) 5.2 (1.4-5.7) K/uL Lymph # (Auto) 1.2 (0.6-2.4) K/uL Anderson # (Auto) 0.6 (0.0-0.8) K/uL Eos # (Auto) 0.3 (0.0-0.7) K/uL Baso # (Auto) 0.0 (0.0-0.1) K/uL Nucleated RBC % 0.0 /100WBC Nucleated RBCs # 0 K/uL Sodium 136 (136-146) mmol/L Potassium 3.6 (3.5-5.1) mmol/L Chloride 107 (98-110) mmol/L Carbon Dioxide 19 L (21-31) mmol/L BUN 6 (6.0-23.0) mg/dL Creatinine 0.7 (0.6-1.5) mg/dL Est Cr Clr Drug Dosing 115.92 mL/min Estimated GFR (MDRD) > 60.0 ml/min Glucose 106 (60-110) mg/dL POC Glucose 90 (60-110) mg/dL Calcium 8.6 L (8.8-10.8) mg/dL Triglycerides 459 H (10-190) mg/dL Lipase 35 (7-80) U/L 11/19/16 11/19/16 11/19/16 Range/Units 06:01 06:57 08:06 WBC (4.0-11.0) K/uL RBC (4.50-5.90) M/uL Hgb (13.0-17.0) g/dL Hct (38.0-50.0) % MCV (80.0-98.0) fL MCH (27.0-32.0) pg MCHC (31.0-37.0) g/dL RDW Std Deviation (28.0-62.0) fl RDW Coeff of Jessica (11.0-15.0) % Plt Count (150-400) K/uL MPV (7.40-12.00) fL Neut % (Auto) (48.0-80.0) % Lymph % (Auto) (16.0-40.0) % Anderson % (Auto) (0.0-15.0) % Eos % (Auto) (0.0-7.0) % Baso % (Auto) (0.0-1.5) % Neut # (Auto) (1.4-5.7) K/uL Lymph # (Auto) (0.6-2.4) K/uL Anderson # (Auto) (0.0-0.8) K/uL Eos # (Auto) (0.0-0.7) K/uL Baso # (Auto) (0.0-0.1) K/uL Nucleated RBC % /100WBC Nucleated RBCs # K/uL Sodium (136-146) mmol/L Potassium (3.5-5.1) mmol/L Chloride (98-110) mmol/L Carbon Dioxide (21-31) mmol/L BUN (6.0-23.0) mg/dL Creatinine (0.6-1.5) mg/dL Est Cr Clr Drug Dosing mL/min Estimated GFR (MDRD) ml/min Glucose (60-110) mg/dL POC Glucose 95 102 114 H (60-110) mg/dL Calcium (8.8-10.8) mg/dL Triglycerides (10-190) mg/dL Lipase (7-80) U/L 11/19/16 11/19/16 Range/Units 09:05 10:09 WBC (4.0-11.0) K/uL RBC (4.50-5.90) M/uL Hgb (13.0-17.0) g/dL Hct (38.0-50.0) % MCV (80.0-98.0) fL MCH (27.0-32.0) pg MCHC (31.0-37.0) g/dL RDW Std Deviation (28.0-62.0) fl RDW Coeff of Jessica (11.0-15.0) % Plt Count (150-400) K/uL MPV (7.40-12.00) fL Neut % (Auto) (48.0-80.0) % Lymph % (Auto) (16.0-40.0) % Anderson % (Auto) (0.0-15.0) % Eos % (Auto) (0.0-7.0) % Baso % (Auto) (0.0-1.5) % Neut # (Auto) (1.4-5.7) K/uL Lymph # (Auto) (0.6-2.4) K/uL Anderson # (Auto) (0.0-0.8) K/uL Eos # (Auto) (0.0-0.7) K/uL Baso # (Auto) (0.0-0.1) K/uL Nucleated RBC % /100WBC Nucleated RBCs # K/uL Sodium (136-146) mmol/L Potassium (3.5-5.1) mmol/L Chloride (98-110) mmol/L Carbon Dioxide (21-31) mmol/L BUN (6.0-23.0) mg/dL Creatinine (0.6-1.5) mg/dL Est Cr Clr Drug Dosing mL/min Estimated GFR (MDRD) ml/min Glucose (60-110) mg/dL POC Glucose 113 H 93 (60-110) mg/dL Calcium (8.8-10.8) mg/dL Triglycerides (10-190) mg/dL Lipase (7-80) U/L Hawk Results last 24 hrs: Microbiology 11/16/16 16:08 Aerobic Blood Culture - Preliminary Blood - Venous - Lab Draw NO GROWTH AFTER 2 DAYS Anaerobic Blood Culture - Preliminary NO GROWTH AFTER 2 DAYS 11/16/16 16:00 Aerobic Blood Culture - Preliminary Blood - Venous NO GROWTH AFTER 2 DAYS Anaerobic Blood Culture - Preliminary NO GROWTH AFTER 2 DAYS Med Orders - Current: Current Medications Enoxaparin Sodium (Lovenox) 40 mg SUBCUT Q24H APOLINAR Last Admin: 11/19/16 10:12 Dose: 40 mg Hydromorphone HCl (Dilaudid Reimbursement Spec 6 Mg In Ns 30 Ml) 6 mg IV ASDIRECTED PRN; Protocol PRN Reason: Pain Last Admin: 11/19/16 04:50 Dose: 6 mg Pantoprazole Sodium 40 mg/ (Sodium Chloride) 10 mls @ 300 mls/hr IV BID APOLINAR Last Admin: 11/19/16 10:12 Dose: 300 mls/hr Sodium Chloride (Normal Saline) 1,000 mls @ 250 mls/hr IV ASDIRECTED APOLINAR Last Admin: 11/19/16 07:45 Dose: 250 mls/hr Insulin Human Regular 100 unit (/ Sodium Chloride) 100 mls @ 2 mls/hr IV TITRATE APOLINAR; 2 UNIT/HR PRN Reason: Protocol Last Admin: 11/18/16 15:33 Dose: 1 unit/hr, 1 mls/hr Lorazepam (Ativan) 1 mg IVPUSH Q6H PRN PRN Reason: Anxiety Last Admin: 11/17/16 15:29 Dose: 1 mg Ondansetron HCl (Zofran) 4 mg IVPUSH Q4H PRN PRN Reason: Nausea/Vomiting Last Admin: 11/17/16 13:29 Dose: 4 mg Sodium Chloride (Saline Flush) 10 ml FLUSH ASDIRECTED PRN PRN Reason: Keep Vein Open Sodium Chloride (Saline Flush) 2.5 ml FLUSH ASDIRECTED PRN PRN Reason: Keep Vein Open Discontinued Medications Hydromorphone HCl (Dilaudid) 1 mg IVPUSH ONETIME ONE Stop: 11/16/16 13:57 Last Admin: 11/16/16 14:06 Dose: 1 mg Hydromorphone HCl (Dilaudid) 1 mg IVPUSH ONETIME ONE Stop: 11/16/16 15:49 Last Admin: 11/16/16 16:17 Dose: 1 mg Hydromorphone HCl (Dilaudid) 0.5 mg IVPUSH Q2H PRN PRN Reason: Pain (severe 7-10) Last Admin: 11/16/16 22:44 Dose: 0.5 mg Hydromorphone HCl (Dilaudid) 1 mg IVPUSH Q1H PRN PRN Reason: Pain (severe 7-10) Last Admin: 11/18/16 10:23 Dose: 1 mg Sodium Chloride (Normal Saline) 1,000 mls @ 999 mls/hr IV STAT ONE Stop: 11/16/16 14:56 Last Admin: 11/16/16 14:04 Dose: 999 mls/hr Sodium Chloride (Normal Saline) 1,000 mls @ 150 mls/hr IV STAT ONE Stop: 11/16/16 22:27 Last Infusion: 11/16/16 17:24 Dose: Infused Ceftriaxone Sodium/Dextrose 1 (gm/ Premix) 50 mls @ 100 mls/hr IV ONETIME ONE Stop: 11/16/16 16:17 Last Admin: 11/16/16 16:16 Dose: 100 mls/hr Potassium Chloride/Sodium Chloride (Normal Saline With 20 Meq Kcl) 1,000 mls @ 150 mls/hr IV ASDIRECTED APOLINAR Last Infusion: 11/16/16 20:37 Dose: 150 mls/hr Sodium Chloride (Normal Saline) 1,000 mls @ 999 mls/hr IV .Bolus ONE Stop: 11/16/16 20:52 Last Admin: 11/16/16 20:38 Dose: 999 mls/hr Insulin Human Regular 100 unit (/ Sodium Chloride) 100 mls @ 2 mls/hr IV Q24H APOLINAR; 2 UNIT/HR PRN Reason: Protocol Last Admin: 11/18/16 15:35 Dose: Not Given Insulin Aspart (Novolog) 0 unit SUBCUT Q6HR APOLINAR PRN Reason: Protocol Last Admin: 11/17/16 06:10 Dose: 2 units Iopamidol (Isovue Multipack-370 (76%)) 100 ml IVPUSH ONETIME STA Stop: 11/16/16 15:16 Last Admin: 11/16/16 15:16 Dose: 100 ml Lorazepam (Ativan) 1 mg IM Q6H PRN PRN Reason: Anxiety Ondansetron HCl (Zofran) 4 mg IVPUSH ONETIME ONE Stop: 11/16/16 13:57 Last Admin: 11/16/16 14:05 Dose: 4 mg Ondansetron HCl (Zofran) 8 mg IVPUSH Q8H PRN PRN Reason: Nausea/Vomiting Pantoprazole Sodium (Protonix Iv) 80 mg IVPUSH .BOLUS ONE Stop: 11/16/16 13:57 Last Admin: 11/16/16 14:06 Dose: 80 mg Pantoprazole Sodium (Protonix Iv) 40 mg IV Q12HR APOLINAR - Exam General: alert, oriented Lungs: Clear to auscultation, Normal respiratory effort Cardiovascular: Regular Rate, Regular Rhythm Abdomen: tenderness (right upper quadrant) Extremities: no edema - Problem List Review Problem List Initiated/Reviewed/Updated: Yes - My Orders Last 24 Hours: My Active Orders 11/18/16 11:08 HYDROmorphone/Normal Saline [Dilaudid EMBROIDERY SPECIALIST 6 MG in NS 30 ML] 6 mg IV ASDIRECTED PRN - Plan Plan:: 46-year-old male admitted with pancreatitis and hypertriglyceridemia. #1. Hypertriglyceridemia induces pancreatitis : continue bowel rest, dilaudid EMBROIDERY SPECIALIST and IV fluids, reviewed goals of pain management with patient. #2. Diabetes type II, uncontrolled: -continue insulin drip due to elevated triglycerides in the setting of acute pancreatitis.
[2016-11-20] MEDS: HYDROmorphone/Normal Saline 6 MG/30 ML PCA Vial IV PRN ×2 (01:12→09:57)
[2016-11-20] MEDS: Sodium Chloride 0.9% 1,000 ML IV SCH ×3 (01:44→17:30)
[2016-11-20 06:10] LABS: CHLORIDE,CL 106 mmol/L (98-110); SODIUM,NA 136 mmol/L (136-146)
[2016-11-20] MEDS: Pantoprazole 40 MG in Sodium Chloride 0.9% 10 ML IV SCH ×2 (08:05→20:54)
[2016-11-20] MEDS: Enoxaparin 40 MG/0.4 ML Syringe SUBCUT SCH (08:14)
--- NOTE | 2016-11-20 08:23 | PCM.PN ---
- General Info Date of Service: 11/20/16 Admission Dx/Problem (Free Text): Admission Diagnosis/Problem Admission Diagnosis/Problem Pancreatitis Subjective Update: WHen first walking into room, he appeared content and comfortable talking on his phone. After phone call ended, he became tearful and reported epigastric pain is resolving. But since last evening, he is having significant pain to his RLQ and midline abdomen. He reports flatus and but no BMs. No Nausea or vomiting. No chest pain or SOB. 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 Functional Status: Reports: ambulating, urinating. Denies: pain controlled, tolerating diet - Review of Systems General: Reports: No Symptoms HEENT: Reports: no symptoms Pulmonary: Reports: no symptoms. Denies: shortness of breath, cough, sputum Cardiovascular: Reports: No Symptoms. Denies: Chest Pain, Edema Gastrointestinal: Reports: Abdominal pain (RLQ, RUQ and midline.), Constipation , Flatus. Denies: Nausea, Vomiting Genitourinary: Reports: no symptoms. Denies: dysuria, frequency, burning Musculoskeletal: Reports: no symptoms Skin: Reports: no symptoms Neurological: Reports: No Symptoms Psychiatric: Reports: no symptoms - Patient Data Vitals - most recent: Last Vital Signs Temp 97.1 F 11/20/16 08:00 Pulse 84 11/20/16 08:00 Resp 20 11/20/16 08:00 BP 127/76 11/20/16 08:00 Pulse Ox 96 11/20/16 08:00 Weight - most recent: 91.3 kg I&O - last 24 hours: Intake & Output 11/19/16 11/20/16 11/20/16 22:59 06:59 14:59 Intake Total 2070 1399 Output Total 2690 2865 Balance -045 -5777 Lab Results last 24 hrs: Laboratory Results - last 24 hr 11/19/16 11/19/16 11/19/16 Range/Units 09:05 10:09 11:55 WBC (4.0-11.0) K/uL RBC (4.50-5.90) M/uL Hgb (13.0-17.0) g/dL Hct (38.0-50.0) % MCV (80.0-98.0) fL MCH (27.0-32.0) pg MCHC (31.0-37.0) g/dL RDW Std Deviation (28.0-62.0) fl RDW Coeff of Jessica (11.0-15.0) % Plt Count (150-400) K/uL MPV (7.40-12.00) fL Neut % (Auto) (48.0-80.0) % Lymph % (Auto) (16.0-40.0) % [place] % (Auto) (0.0-15.0) % Eos % (Auto) (0.0-7.0) % Baso % (Auto) (0.0-1.5) % Neut # (Auto) (1.4-5.7) K/uL Lymph # (Auto) (0.6-2.4) K/uL [place] # (Auto) (0.0-0.8) K/uL Eos # (Auto) (0.0-0.7) K/uL Baso # (Auto) (0.0-0.1) K/uL Nucleated RBC % /100WBC Nucleated RBCs # K/uL Sodium (136-146) mmol/L Potassium (3.5-5.1) mmol/L Chloride (98-110) mmol/L Carbon Dioxide (21-31) mmol/L BUN (6.0-23.0) mg/dL Creatinine (0.6-1.5) mg/dL Est Cr Clr Drug Dosing mL/min Estimated GFR (MDRD) ml/min Glucose (60-110) mg/dL POC Glucose 113 H 93 94 (60-110) mg/dL Calcium (8.8-10.8) mg/dL Triglycerides (10-190) mg/dL 11/19/16 11/19/16 11/19/16 Range/Units 14:03 16:19 18:26 WBC (4.0-11.0) K/uL RBC (4.50-5.90) M/uL Hgb (13.0-17.0) g/dL Hct (38.0-50.0) % MCV (80.0-98.0) fL MCH (27.0-32.0) pg MCHC (31.0-37.0) g/dL RDW Std Deviation (28.0-62.0) fl RDW Coeff of Jessica (11.0-15.0) % Plt Count (150-400) K/uL MPV (7.40-12.00) fL Neut % (Auto) (48.0-80.0) % Lymph % (Auto) (16.0-40.0) % [place] % (Auto) (0.0-15.0) % Eos % (Auto) (0.0-7.0) % Baso % (Auto) (0.0-1.5) % Neut # (Auto) (1.4-5.7) K/uL Lymph # (Auto) (0.6-2.4) K/uL [place] # (Auto) (0.0-0.8) K/uL Eos # (Auto) (0.0-0.7) K/uL Baso # (Auto) (0.0-0.1) K/uL Nucleated RBC % /100WBC Nucleated RBCs # K/uL Sodium (136-146) mmol/L Potassium (3.5-5.1) mmol/L Chloride (98-110) mmol/L Carbon Dioxide (21-31) mmol/L BUN (6.0-23.0) mg/dL Creatinine (0.6-1.5) mg/dL Est Cr Clr Drug Dosing mL/min Estimated GFR (MDRD) ml/min Glucose (60-110) mg/dL POC Glucose 148 H 145 H 86 (60-110) mg/dL Calcium (8.8-10.8) mg/dL Triglycerides (10-190) mg/dL 11/19/16 11/19/16 11/20/16 Range/Units 20:12 22:18 00:27 WBC (4.0-11.0) K/uL RBC (4.50-5.90) M/uL Hgb (13.0-17.0) g/dL Hct (38.0-50.0) % MCV (80.0-98.0) fL MCH (27.0-32.0) pg MCHC (31.0-37.0) g/dL RDW Std Deviation (28.0-62.0) fl RDW Coeff of Jessica (11.0-15.0) % Plt Count (150-400) K/uL MPV (7.40-12.00) fL Neut % (Auto) (48.0-80.0) % Lymph % (Auto) (16.0-40.0) % [place] % (Auto) (0.0-15.0) % Eos % (Auto) (0.0-7.0) % Baso % (Auto) (0.0-1.5) % Neut # (Auto) (1.4-5.7) K/uL Lymph # (Auto) (0.6-2.4) K/uL [place] # (Auto) (0.0-0.8) K/uL Eos # (Auto) (0.0-0.7) K/uL Baso # (Auto) (0.0-0.1) K/uL Nucleated RBC % /100WBC Nucleated RBCs # K/uL Sodium (136-146) mmol/L Potassium (3.5-5.1) mmol/L Chloride (98-110) mmol/L Carbon Dioxide (21-31) mmol/L BUN (6.0-23.0) mg/dL Creatinine (0.6-1.5) mg/dL Est Cr Clr Drug Dosing mL/min Estimated GFR (MDRD) ml/min Glucose (60-110) mg/dL POC Glucose 108 144 H 130 H (60-110) mg/dL Calcium (8.8-10.8) mg/dL Triglycerides (10-190) mg/dL 11/20/16 11/20/16 11/20/16 Range/Units 01:58 04:07 05:15 WBC (4.0-11.0) K/uL RBC (4.50-5.90) M/uL Hgb (13.0-17.0) g/dL Hct (38.0-50.0) % MCV (80.0-98.0) fL MCH (27.0-32.0) pg MCHC (31.0-37.0) g/dL RDW Std Deviation (28.0-62.0) fl RDW Coeff of Jessica (11.0-15.0) % Plt Count (150-400) K/uL MPV (7.40-12.00) fL Neut % (Auto) (48.0-80.0) % Lymph % (Auto) (16.0-40.0) % [place] % (Auto) (0.0-15.0) % Eos % (Auto) (0.0-7.0) % Baso % (Auto) (0.0-1.5) % Neut # (Auto) (1.4-5.7) K/uL Lymph # (Auto) (0.6-2.4) K/uL [place] # (Auto) (0.0-0.8) K/uL Eos # (Auto) (0.0-0.7) K/uL Baso # (Auto) (0.0-0.1) K/uL Nucleated RBC % /100WBC Nucleated RBCs # K/uL Sodium 136 (136-146) mmol/L Potassium 3.5 (3.5-5.1) mmol/L Chloride 106 (98-110) mmol/L Carbon Dioxide 21 (21-31) mmol/L BUN 6 (6.0-23.0) mg/dL Creatinine 0.6 (0.6-1.5) mg/dL Est Cr Clr Drug Dosing 135.24 mL/min Estimated GFR (MDRD) > 60.0 ml/min Glucose 89 (60-110) mg/dL POC Glucose 96 81 (60-110) mg/dL Calcium 8.8 (8.8-10.8) mg/dL Triglycerides 292 H (10-190) mg/dL 11/20/16 11/20/16 Range/Units 05:15 06:14 WBC 6.53 (4.0-11.0) K/uL RBC 4.10 L (4.50-5.90) M/uL Hgb 12.2 L (13.0-17.0) g/dL Hct 36.3 L (38.0-50.0) % MCV 88.5 (80.0-98.0) fL MCH 29.8 (27.0-32.0) pg MCHC 33.6 (31.0-37.0) g/dL RDW Std Deviation 43.0 (28.0-62.0) fl RDW Coeff of Jessica 13 (11.0-15.0) % Plt Count 158 (150-400) K/uL MPV 12.00 (7.40-12.00) fL Neut % (Auto) 69.6 (48.0-80.0) % Lymph % (Auto) 14.7 L (16.0-40.0) % [place] % (Auto) 11.9 (0.0-15.0) % Eos % (Auto) 3.5 (0.0-7.0) % Baso % (Auto) 0.3 (0.0-1.5) % Neut # (Auto) 4.5 (1.4-5.7) K/uL Lymph # (Auto) 1.0 (0.6-2.4) K/uL [place] # (Auto) 0.8 (0.0-0.8) K/uL Eos # (Auto) 0.2 (0.0-0.7) K/uL Baso # (Auto) 0.0 (0.0-0.1) K/uL Nucleated RBC % 0.0 /100WBC Nucleated RBCs # 0 K/uL Sodium (136-146) mmol/L Potassium (3.5-5.1) mmol/L Chloride (98-110) mmol/L Carbon Dioxide (21-31) mmol/L BUN (6.0-23.0) mg/dL Creatinine (0.6-1.5) mg/dL Est Cr Clr Drug Dosing mL/min Estimated GFR (MDRD) ml/min Glucose (60-110) mg/dL POC Glucose 95 (60-110) mg/dL Calcium (8.8-10.8) mg/dL Triglycerides (10-190) mg/dL [place] Results last 24 hrs: Microbiology 11/16/16 16:08 Aerobic Blood Culture - Preliminary Blood - Venous - Lab Draw NO GROWTH AFTER 3 DAYS Anaerobic Blood Culture - Preliminary NO GROWTH AFTER 3 DAYS 11/16/16 16:00 Aerobic Blood Culture - Preliminary Blood - Venous NO GROWTH AFTER 3 DAYS Anaerobic Blood Culture - Preliminary NO GROWTH AFTER 3 DAYS Med Orders - Current: Current Medications Enoxaparin Sodium (Lovenox) 40 mg SUBCUT Q24H [facility] Last Admin: 11/20/16 08:14 Dose: 40 mg Hydromorphone HCl (Dilaudid 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 Machine 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 6 Mg In Ns 30 Ml) 6 mg IV ASDIRECTED PRN; Protocol PRN Reason: Pain Last Admin: 11/20/16 01:12 Dose: 6 mg Pantoprazole Sodium 40 mg/ (Sodium Chloride) 10 mls @ 300 mls/hr IV BID APOLINAR Last Admin: 11/20/16 08:05 Dose: 300 mls/hr Sodium Chloride (Normal Saline) 1,000 mls @ 150 mls/hr IV ASDIRECTED APOLINAR Last Admin: 11/20/16 01:44 Dose: 150 mls/hr Insulin Human Regular 100 unit (/ Sodium Chloride) 100 mls @ 2 mls/hr IV TITRATE APOLINAR; 2 UNIT/HR PRN Reason: Protocol Last Admin: 11/19/16 15:37 Dose: 1 unit/hr, 1 mls/hr Lorazepam (Ativan) 1 mg IVPUSH Q6H PRN PRN Reason: Anxiety Last Admin: 11/17/16 15:29 Dose: 1 mg Ondansetron HCl (Zofran) 4 mg IVPUSH Q4H PRN PRN Reason: Nausea/Vomiting Last Admin: 11/17/16 13:29 Dose: 4 mg Sodium Chloride (Saline Flush) 10 ml FLUSH ASDIRECTED PRN PRN Reason: Keep Vein Open Sodium Chloride (Saline Flush) 2.5 ml FLUSH ASDIRECTED PRN PRN Reason: Keep Vein Open Discontinued Medications Hydromorphone HCl (Dilaudid) 1 mg IVPUSH ONETIME ONE Stop: 11/16/16 13:57 Last Admin: 11/16/16 14:06 Dose: 1 mg Hydromorphone HCl (Dilaudid) 1 mg IVPUSH ONETIME ONE Stop: 11/16/16 15:49 Last Admin: 11/16/16 16:17 Dose: 1 mg Hydromorphone HCl (Dilaudid) 0.5 mg IVPUSH Q2H PRN PRN Reason: Pain (severe 7-10) Last Admin: 11/16/16 22:44 Dose: 0.5 mg Hydromorphone HCl (Dilaudid) 1 mg IVPUSH Q1H PRN PRN Reason: Pain (severe 7-10) Last Admin: 11/18/16 10:23 Dose: 1 mg Sodium Chloride (Normal Saline) 1,000 mls @ 999 mls/hr IV STAT ONE Stop: 11/16/16 14:56 Last Admin: 11/16/16 14:04 Dose: 999 mls/hr Sodium Chloride (Normal Saline) 1,000 mls @ 150 mls/hr IV STAT ONE Stop: 11/16/16 22:27 Last Infusion: 11/16/16 17:24 Dose: Infused Ceftriaxone Sodium/Dextrose 1 (gm/ Premix) 50 mls @ 100 mls/hr IV ONETIME ONE Stop: 11/16/16 16:17 Last Admin: 11/16/16 16:16 Dose: 100 mls/hr Potassium Chloride/Sodium Chloride (Normal Saline With 20 Meq Kcl) 1,000 mls @ 150 mls/hr IV ASDIRECTED APOLINAR Last Infusion: 11/16/16 20:37 Dose: 150 mls/hr Sodium Chloride (Normal Saline) 1,000 mls @ 999 mls/hr IV .Bolus ONE Stop: 11/16/16 20:52 Last Admin: 11/16/16 20:38 Dose: 999 mls/hr Insulin Human Regular 100 unit (/ Sodium Chloride) 100 mls @ 2 mls/hr IV Q24H APOLINAR; 2 UNIT/HR PRN Reason: Protocol Last Admin: 11/18/16 15:35 Dose: Not Given Insulin Aspart (Novolog) 0 unit SUBCUT Q6HR APOLINAR PRN Reason: Protocol Last Admin: 11/17/16 06:10 Dose: 2 units Iopamidol (Isovue Multipack-370 (76%)) 100 ml IVPUSH ONETIME STA Stop: 11/16/16 15:16 Last Admin: 11/16/16 15:16 Dose: 100 ml Lorazepam (Ativan) 1 mg IM Q6H PRN PRN Reason: Anxiety Ondansetron HCl (Zofran) 4 mg IVPUSH ONETIME ONE Stop: 11/16/16 13:57 Last Admin: 11/16/16 14:05 Dose: 4 mg Ondansetron HCl (Zofran) 8 mg IVPUSH Q8H PRN PRN Reason: Nausea/Vomiting Pantoprazole Sodium (Protonix Iv) 80 mg IVPUSH .BOLUS ONE Stop: 11/16/16 13:57 Last Admin: 11/16/16 14:06 Dose: 80 mg Pantoprazole Sodium (Protonix Iv) 40 mg IV Q12HR APOLINAR - Exam Quality Assessment: DVT prophylaxis General: alert, oriented, cooperative HEENT: Pupils equal, Pupils reactive, EOMI, Mucous membr. moist/pink Neck: supple Lungs: Clear to auscultation, Normal respiratory effort Cardiovascular: Regular Rate, Regular Rhythm Abdomen: bowel sounds present, soft, tenderness (immediate tenderness to abdomen with slight pressure of stethoscope further pain and became very tearful with palpation of abdomen. ) Extremities: no edema, normal pulses, no tenderness/swelling Neurological: no new focal deficit Psy/Mental Status: alert, normal affect, normal mood - Problem List & Annotations (1) Abdominal pain SNOMED Code(s): 54089786 Code(s): R10.9 - UNSPECIFIED ABDOMINAL PAIN Status: Acute Current Visit: No Qualifiers: Abdominal location: generalized Qualified Code(s): R10.84 - Generalized abdominal pain (2) Diabetes SNOMED Code(s): 00172480 Code(s): E11.9 - TYPE 2 DIABETES MELLITUS WITHOUT COMPLICATIONS Status: Acute Current Visit: Yes Qualifiers: Diabetes mellitus type: type 2 Diabetes mellitus complication status: with other specified complication 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: without assisted use Qualified Code(s): E11.69 - Type 2 diabetes mellitus with other specified complication (3) Hypertriglyceridemia SNOMED Code(s): 945844113 Code(s): E78.1 - PURE HYPERGLYCERIDEMIA Status: Acute Current Visit: Yes (4) Pancreatitis SNOMED Code(s): 74506684 Code(s): K85.90 - ACUTE PANCREATITIS WITHOUT NECROSIS OR INFECTION, UNSP Status: Acute Current Visit: Yes Qualifiers: Chronicity: acute Pancreatitis type: unspecified pancreatitis type Acute pancreatitis complication: no infection or necrosis Qualified Code(s): K85.90 - Acute pancreatitis without necrosis or infection, unspecified (5) Obesity (BMI 30.0-34.9) SNOMED Code(s): 203154148 Code(s): E66.9 - OBESITY, UNSPECIFIED Status: Chronic Current Visit: Yes - Problem List Review Problem List Initiated/Reviewed/Updated: Yes - Plan Plan:: 46-year-old male admitted with pancreatitis and hypertriglyceridemia. 1. Hypertriglyceridemia induced pancreatitis: Start CL diet, No N/V. Discontinue dilaudid ASSISTANT PROPERTY MANAGER, will keep IV Dilaudid PRN add Oxycodone PO pRN. Monitor pain. Continue IV fluids. Worsening abdominal pain today, CT of abd/ pelvis revealed increasing retroperitoneal stranding with extension towards RLQ , likely sequela of pancreatitis, no organized fluid collection, appendix appears normal. 2. Diabetes type II, uncontrolled: Discontinue insulin Novolog SSI with meals and Lantus 15 units at bedtime. 3. Hypertriglyceridemia: Triglycerides continue to improve, today 292. VTE prophylaxis: Lovenox Dispo: Pending improvement, 2-3 days.
[2016-11-20] MEDS ORDERED: Iopamidol 755 MG/ML 500 ML Multipack Bottle IVPUSH STA (11:45)
[2016-11-20] MEDS ORDERED: Insulin Aspart 100 Units/ML 3 ML Pen SUBCUT SCH (12:15)
--- NOTE | 2016-11-20 12:30 | CT ---
CT of the abdomen and pelvis with contrast. HISTORY: Pancreatitis, new right lower quadrant pain TECHNIQUE: Axial CT images were obtained of the abdomen and pelvis following administration of 100 m L of Isovue-370 in the left antecubital fossa without complication. Coronal and sagittal reconstruct ions obtained. FINDINGS: The lung bases are clear, no pleural effusion. Mild dependent atelectasis. The liver, spleen and adrenal glands appear grossly unremarkable. Again noted is moderate retroperit iqbal stranding predominantly adjacent to the duodenum and the head of the pancreas. This extends in feriorly towards the right lower quadrant. The appendix is normal in size. The gallbladder appears n ormal. The kidneys enhance and function symmetrically without evidence of obstructive uropathy. The large and small bowel are normal in caliber without evidence of obstruction. No bulky pelvic lym phadenopathy or free pelvic fluid. The urinary bladder appears normal. No free air No suspicious osseous abnormalities. IMPRESSION: 1. Increasing retroperitoneal stranding with extension towards the right lower quadrant. Likely the sequela of pancreatitis. No organized fluid collection identified. 2. The appendix appears normal in caliber without evidence of appendicitis.
[2016-11-20] MEDS: oxyCODONE 5 MG Tab PO PRN ×3 (13:56→22:41)
[2016-11-20] MEDS: Insulin Aspart 100 Units/ML 3 ML Pen SUBCUT SCH (17:34)
[2016-11-20] MEDS: HYDROmorphone 1 MG/ML Syringe IVPUSH PRN ×2 (17:40→20:49)
[2016-11-20] MEDS: Insulin Glargine,Human Rec. Analog 100 Units/ML 3 ML Pen SUBCUT SCH (20:58)
[2016-11-21] MEDS: Sodium Chloride 0.9% 1,000 ML IV SCH ×4 (00:08→20:50)
[2016-11-21] MEDS: HYDROmorphone 1 MG/ML Syringe IVPUSH PRN ×6 (00:09→20:28)
[2016-11-21 05:48] LABS: CHLORIDE,CL 107 mmol/L (98-110); SODIUM,NA 137 mmol/L (136-146)
[2016-11-21] MEDS: oxyCODONE 5 MG Tab PO PRN ×5 (07:01→23:16)
[2016-11-21] MEDS: Insulin Aspart 100 Units/ML 3 ML Pen SUBCUT SCH ×3 (07:02→16:33)
--- NOTE | 2016-11-21 08:18 | PCM.PN ---
- General Info Date of Service: 11/21/16 Admission Dx/Problem (Free Text): Admission Diagnosis/Problem Admission Diagnosis/Problem Pancreatitis Subjective Update: Reports still having pain to his RLQ and midline abdomen. He reports flatus and but no BMs. Slight Nausea intermittently but no vomiting. No chest pain or SOB. Pain medication regimen is working. Functional Status: Reports: pain controlled, tolerating diet, ambulating, urinating - Review of Systems General: Reports: No Symptoms HEENT: Reports: no symptoms Pulmonary: Reports: no symptoms. Denies: shortness of breath Cardiovascular: Reports: No Symptoms. Denies: Chest Pain Gastrointestinal: Reports: Abdominal pain, Flatus, Nausea. Denies: Constipation , Diarrhea, Vomiting Genitourinary: Reports: no symptoms. Denies: dysuria, frequency, burning Musculoskeletal: Reports: no symptoms Skin: Reports: no symptoms Neurological: Reports: No Symptoms Psychiatric: Reports: no symptoms - Patient Data Vitals - most recent: Last Vital Signs Temp 97.2 F 11/21/16 07:49 Pulse 82 11/21/16 07:49 Resp 20 11/21/16 07:49 BP 137/78 11/21/16 07:49 Pulse Ox 95 11/21/16 07:49 Weight - most recent: 91.3 kg I&O - last 24 hours: Intake & Output 11/20/16 11/21/16 11/21/16 22:59 06:59 14:59 Intake Total 1300 3400 Output Total 2530 3060 Balance -1230 340 Lab Results last 24 hrs: Laboratory Results - last 24 hr 11/20/16 11/20/16 11/20/16 Range/Units 08:03 09:56 11:59 WBC (4.0-11.0) K/uL RBC (4.50-5.90) M/uL Hgb (13.0-17.0) g/dL Hct (38.0-50.0) % MCV (80.0-98.0) fL MCH (27.0-32.0) pg MCHC (31.0-37.0) g/dL RDW Std Deviation (28.0-62.0) fl RDW Coeff of Jessica (11.0-15.0) % Plt Count (150-400) K/uL MPV (7.40-12.00) fL Neut % (Auto) (48.0-80.0) % Lymph % (Auto) (16.0-40.0) % [place] % (Auto) (0.0-15.0) % Eos % (Auto) (0.0-7.0) % Baso % (Auto) (0.0-1.5) % Neut # (Auto) (1.4-5.7) K/uL Lymph # (Auto) (0.6-2.4) K/uL [place] # (Auto) (0.0-0.8) K/uL Eos # (Auto) (0.0-0.7) K/uL Baso # (Auto) (0.0-0.1) K/uL Nucleated RBC % /100WBC Nucleated RBCs # K/uL Sodium (136-146) mmol/L Potassium (3.5-5.1) mmol/L Chloride (98-110) mmol/L Carbon Dioxide (21-31) mmol/L BUN (6.0-23.0) mg/dL Creatinine (0.6-1.5) mg/dL Est Cr Clr Drug Dosing mL/min Estimated GFR (MDRD) ml/min Glucose (60-110) mg/dL POC Glucose 90 84 96 (60-110) mg/dL Calcium (8.8-10.8) mg/dL Total Bilirubin (0.1-1.5) mg/dL AST (5-40) IU/L ALT (8-54) IU/L Alkaline Phosphatase (40-150) Total Protein (6.0-8.0) g/dL Albumin (3.5-5.0) g/dL Globulin (2.0-3.5) g/dL Albumin/Globulin Ratio (1.3-2.8) 11/20/16 11/20/16 11/21/16 Range/Units 16:43 20:41 04:20 WBC 5.56 (4.0-11.0) K/uL RBC 4.18 L (4.50-5.90) M/uL Hgb 12.5 L (13.0-17.0) g/dL Hct 36.5 L (38.0-50.0) % MCV 87.3 (80.0-98.0) fL MCH 29.9 (27.0-32.0) pg MCHC 34.2 (31.0-37.0) g/dL RDW Std Deviation 41.9 (28.0-62.0) fl RDW Coeff of Jessica 13 (11.0-15.0) % Plt Count 178 (150-400) K/uL MPV 11.80 (7.40-12.00) fL Neut % (Auto) 60.9 (48.0-80.0) % Lymph % (Auto) 23.4 (16.0-40.0) % [place] % (Auto) 10.8 (0.0-15.0) % Eos % (Auto) 4.7 (0.0-7.0) % Baso % (Auto) 0.2 (0.0-1.5) % Neut # (Auto) 3.4 (1.4-5.7) K/uL Lymph # (Auto) 1.3 (0.6-2.4) K/uL [place] # (Auto) 0.6 (0.0-0.8) K/uL Eos # (Auto) 0.3 (0.0-0.7) K/uL Baso # (Auto) 0.0 (0.0-0.1) K/uL Nucleated RBC % 0.0 /100WBC Nucleated RBCs # 0 K/uL Sodium (136-146) mmol/L Potassium (3.5-5.1) mmol/L Chloride (98-110) mmol/L Carbon Dioxide (21-31) mmol/L BUN (6.0-23.0) mg/dL Creatinine (0.6-1.5) mg/dL Est Cr Clr Drug Dosing mL/min Estimated GFR (MDRD) ml/min Glucose (60-110) mg/dL POC Glucose 103 173 H (60-110) mg/dL Calcium (8.8-10.8) mg/dL Total Bilirubin (0.1-1.5) mg/dL AST (5-40) IU/L ALT (8-54) IU/L Alkaline Phosphatase (40-150) Total Protein (6.0-8.0) g/dL Albumin (3.5-5.0) g/dL Globulin (2.0-3.5) g/dL Albumin/Globulin Ratio (1.3-2.8) 05/09/17 Range/Units 04:20 WBC (4.0-11.0) K/uL RBC (4.50-5.90) M/uL Hgb (13.0-17.0) g/dL Hct (38.0-50.0) % MCV (80.0-98.0) fL MCH (27.0-32.0) pg MCHC (31.0-37.0) g/dL RDW Std Deviation (28.0-62.0) fl RDW Coeff of Jessica (11.0-15.0) % Plt Count (150-400) K/uL MPV (7.40-12.00) fL Neut % (Auto) (48.0-80.0) % Lymph % (Auto) (16.0-40.0) % [place] % (Auto) (0.0-15.0) % Eos % (Auto) (0.0-7.0) % Baso % (Auto) (0.0-1.5) % Neut # (Auto) (1.4-5.7) K/uL Lymph # (Auto) (0.6-2.4) K/uL [place] # (Auto) (0.0-0.8) K/uL Eos # (Auto) (0.0-0.7) K/uL Baso # (Auto) (0.0-0.1) K/uL Nucleated RBC % /100WBC Nucleated RBCs # K/uL Sodium 137 (136-146) mmol/L Potassium 3.5 (3.5-5.1) mmol/L Chloride 107 (98-110) mmol/L Carbon Dioxide 19 L (21-31) mmol/L BUN 5 L (6.0-23.0) mg/dL Creatinine 0.7 (0.6-1.5) mg/dL Est Cr Clr Drug Dosing 115.92 mL/min Estimated GFR (MDRD) > 60.0 ml/min Glucose 110 (60-110) mg/dL POC Glucose (60-110) mg/dL Calcium 9.0 (8.8-10.8) mg/dL Total Bilirubin 0.9 (0.1-1.5) mg/dL AST 21 (5-40) IU/L ALT 26 (8-54) IU/L Alkaline Phosphatase 58 (40-150) Total Protein 6.9 (6.0-8.0) g/dL Albumin 3.5 (3.5-5.0) g/dL Globulin 3.4 (2.0-3.5) g/dL Albumin/Globulin Ratio 1.0 L (1.3-2.8) Hawk Results last 24 hrs: Microbiology 11/16/16 16:08 Aerobic Blood Culture - Preliminary Blood - Venous - Lab Draw NO GROWTH AFTER 4 DAYS Anaerobic Blood Culture - Preliminary NO GROWTH AFTER 4 DAYS 11/16/16 16:00 Aerobic Blood Culture - Preliminary Blood - Venous NO GROWTH AFTER 4 DAYS Anaerobic Blood Culture - Preliminary NO GROWTH AFTER 4 DAYS Med Orders - Current: Current Medications Enoxaparin Sodium (Lovenox) 40 mg SUBCUT Q24H [facility] Last Admin: 11/20/16 08:14 Dose: 40 mg Hydromorphone HCl (Dilaudid) 1 mg IVPUSH Q3H PRN PRN Reason: severe pain Last Admin: 11/21/16 04:31 Dose: 1 mg Pantoprazole Sodium 40 mg/ (Sodium Chloride) 10 mls @ 300 mls/hr IV BID [facility]INAR Last Admin: 11/20/16 20:54 Dose: 300 mls/hr Sodium Chloride (Normal Saline) 1,000 mls @ 150 mls/hr IV ASDIRECTED [facility] Last Admin: 11/21/16 07:00 Dose: 150 mls/hr Insulin Aspart (Novolog) 0 unit SUBCUT TIDAC [facility] PRN Reason: Protocol Last Admin: 11/21/16 07:02 Dose: Not Given Insulin Glargine (Lantus Solostar) 15 units SUBCUT BEDTIME [facility] Last Admin: 11/20/16 20:58 Dose: 15 units Lorazepam (Ativan) 1 mg IVPUSH Q6H PRN PRN Reason: Anxiety Last Admin: 11/17/16 15:29 Dose: 1 mg Ondansetron HCl (Zofran) 4 mg IVPUSH Q4H PRN PRN Reason: Nausea/Vomiting Last Admin: 11/17/16 13:29 Dose: 4 mg Oxycodone HCl (Oxycodone) 5 - 10 mg PO Q4H PRN PRN Reason: Pain Last Admin: 11/21/16 07:01 Dose: 10 mg Sodium Chloride (Saline Flush) 10 ml FLUSH ASDIRECTED PRN PRN Reason: Keep Vein Open Sodium Chloride (Saline Flush) 2.5 ml FLUSH ASDIRECTED PRN PRN Reason: Keep Vein Open Discontinued Medications Hydromorphone HCl (Dilaudid) 1 mg IVPUSH ONETIME ONE Stop: 11/16/16 13:57 Last Admin: 11/16/16 14:06 Dose: 1 mg Hydromorphone HCl (Dilaudid) 1 mg IVPUSH ONETIME ONE Stop: 11/16/16 15:49 Last Admin: 11/16/16 16:17 Dose: 1 mg Hydromorphone HCl (Dilaudid) 0.5 mg IVPUSH Q2H PRN PRN Reason: Pain (severe 7-10) Last Admin: 11/16/16 22:44 Dose: 0.5 mg Hydromorphone HCl (Dilaudid) 1 mg IVPUSH Q1H PRN PRN Reason: Pain (severe 7-10) Last Admin: 11/18/16 10:23 Dose: 1 mg Hydromorphone HCl (Dilaudid [employer] 6 Mg In Ns 30 Ml) 6 mg IV ASDIRECTED PRN; Protocol PRN Reason: Pain Last Admin: 11/20/16 09:57 Dose: 6 mg Sodium Chloride (Normal Saline) 1,000 mls @ 999 mls/hr IV STAT ONE Stop: 11/16/16 14:56 Last Admin: 11/16/16 14:04 Dose: 999 mls/hr Sodium Chloride (Normal Saline) 1,000 mls @ 150 mls/hr IV STAT ONE Stop: 11/16/16 22:27 Last Infusion: 11/16/16 17:24 Dose: Infused Ceftriaxone Sodium/Dextrose 1 (gm/ Premix) 50 mls @ 100 mls/hr IV ONETIME ONE Stop: 11/16/16 16:17 Last Admin: 11/16/16 16:16 Dose: 100 mls/hr Potassium Chloride/Sodium Chloride (Normal Saline With 20 Meq Kcl) 1,000 mls @ 150 mls/hr IV ASDIRECTED APOLINAR Last Infusion: 11/16/16 20:37 Dose: 150 mls/hr Sodium Chloride (Normal Saline) 1,000 mls @ 999 mls/hr IV .Bolus ONE Stop: 11/16/16 20:52 Last Admin: 11/16/16 20:38 Dose: 999 mls/hr Insulin Human Regular 100 unit (/ Sodium Chloride) 100 mls @ 2 mls/hr IV Q24H APOLINAR; 2 UNIT/HR PRN Reason: Protocol Last Admin: 11/18/16 15:35 Dose: Not Given Insulin Human Regular 100 unit (/ Sodium Chloride) 100 mls @ 2 mls/hr IV TITRATE APOLINAR; 2 UNIT/HR PRN Reason: Protocol Last Admin: 11/19/16 15:37 Dose: 1 unit/hr, 1 mls/hr Insulin Aspart (Novolog) 0 unit SUBCUT Q6HR [facility] PRN Reason: Protocol Last Admin: 11/17/16 06:10 Dose: 2 units Insulin Aspart (Novolog) 0 unit SUBCUT Q6H [facility] PRN Reason: Protocol Last Admin: 11/20/16 12:35 Dose: Not Given Iopamidol (Isovue Multipack-370 (76%)) 100 ml IVPUSH ONETIME STA Stop: 11/16/16 15:16 Last Admin: 11/16/16 15:16 Dose: 100 ml Iopamidol (Isovue Multipack-370 (76%)) 100 ml IVPUSH ONETIME STA Stop: 11/20/16 11:46 Last Admin: 11/20/16 11:47 Dose: 100 ml Lorazepam (Ativan) 1 mg IM Q6H PRN PRN Reason: Anxiety Ondansetron HCl (Zofran) 4 mg IVPUSH ONETIME ONE Stop: 11/16/16 13:57 Last Admin: 11/16/16 14:05 Dose: 4 mg Ondansetron HCl (Zofran) 8 mg IVPUSH Q8H PRN PRN Reason: Nausea/Vomiting Pantoprazole Sodium (Protonix Iv) 80 mg IVPUSH .BOLUS ONE Stop: 11/16/16 13:57 Last Admin: 11/16/16 14:06 Dose: 80 mg Pantoprazole Sodium (Protonix Iv) 40 mg IV Q12HR APOLINAR - Exam General: alert, oriented, cooperative Lungs: Clear to auscultation, Normal respiratory effort Cardiovascular: Regular Rate, Regular Rhythm Abdomen: bowel sounds present, soft, tenderness (to RUQ and RLQ continues today. ) Extremities: no edema, normal pulses Neurological: no new focal deficit Psy/Mental Status: alert, normal affect, normal mood - Problem List & Annotations (1) Abdominal pain SNOMED Code(s): 37165191 Code(s): R10.9 - UNSPECIFIED ABDOMINAL PAIN Status: Acute Current Visit: No Qualifiers: Abdominal location: generalized Qualified Code(s): R10.84 - Generalized abdominal pain (2) Diabetes SNOMED Code(s): 52800037 Code(s): E11.9 - TYPE 2 DIABETES MELLITUS WITHOUT COMPLICATIONS Status: Acute Current Visit: Yes Qualifiers: Diabetes mellitus type: type 2 Diabetes mellitus complication status: with other specified complication Diabetes mellitus fci insulin use: without fci use Qualified Code(s): E11.69 - Type 2 diabetes mellitus with other specified complication (3) Hypertriglyceridemia SNOMED Code(s): 032112803 Code(s): E78.1 - PURE HYPERGLYCERIDEMIA Status: Acute Current Visit: Yes (4) Pancreatitis SNOMED Code(s): 46256590 Code(s): K85.90 - ACUTE PANCREATITIS WITHOUT NECROSIS OR INFECTION, UNSP Status: Acute Current Visit: Yes Qualifiers: Chronicity: acute Pancreatitis type: unspecified pancreatitis type Acute pancreatitis complication: no infection or necrosis Qualified Code(s): K85.90 - Acute pancreatitis without necrosis or infection, unspecified (5) Obesity (BMI 30.0-34.9) SNOMED Code(s): 453209377 Code(s): E66.9 - OBESITY, UNSPECIFIED Status: Chronic Current Visit: Yes - Problem List Review Problem List Initiated/Reviewed/Updated: Yes - My Orders Last 24 Hours: My Active Orders 11/20/16 13:14 oxyCODONE 5 - 10 mg PO Q4H PRN 11/20/16 13:15 HYDROmorphone [Dilaudid] 1 mg IVPUSH Q3H PRN 11/20/16 13:43 Communication Order [RC] PRN 11/20/16 17:00 Insulin Aspart [NovoLOG] See Protocol SUBCUT TIDAC 11/20/16 21:00 Insulin Glarg,Human.Rec.Analog [LantUS Solostar] 15 units SUBCUT BEDTIME 11/20/16 Dinner Clear Liquid Diet [DIET] 11/21/16 04:20 TRIGLYCERIDES [CHEM] Routine 11/22/16 05:00 CBC WITH AUTO DIFF [HEME] DAILY COMPREHENSIVE METABOLIC PN,CMP [CHEM] DAILY 11/23/16 05:00 CBC WITH AUTO DIFF [HEME] DAILY COMPREHENSIVE METABOLIC PN,CMP [CHEM] DAILY - Plan Plan:: 46-year-old male admitted with pancreatitis and hypertriglyceridemia. 1. Hypertriglyceridemia induced pancreatitis: Continue CL diet. Continue IV Dilaudid PRN and Oxycodone PO PRN. Monitor pain. Continue IV fluids. Abdominal pain remains the same. CT of abd/pelvis revealed increasing retroperitoneal stranding with extension towards RLQ, likely sequela of pancreatitis, no organized fluid collection, appendix appears normal. Reports he has had previous episode of pancreatitis, awaiting records from [place]. 2. Diabetes type II, uncontrolled: Novolog SSI with meals and Lantus 15 units at bedtime. Will plan to send home with Lantus and SSI. DM educator has spoke with him already. 3. Hypertriglyceridemia: Triglycerides continue to improve, today 251. Will start Gemfibrizol 600mg BID VTE prophylaxis: Lovenox Dispo: Possible DC in 1-2 days.
[2016-11-21] MEDS: Enoxaparin 40 MG/0.4 ML Syringe SUBCUT SCH (08:20)
[2016-11-21] MEDS: Pantoprazole 40 MG in Sodium Chloride 0.9% 10 ML IV SCH (08:29)
[2016-11-21] MEDS: Pantoprazole 40 MG Tab.CR PO SCH (16:31)
[2016-11-21] MEDS: Gemfibrozil 600 MG Tab PO SCH (16:31)
[2016-11-21] MEDS: Insulin Glargine,Human Rec. Analog 100 Units/ML 3 ML Pen SUBCUT SCH (20:38)
[2016-11-22] MEDS: Benzonatate 100 MG Cap PO SCH ×2 (00:12→07:22)
[2016-11-22] MEDS: HYDROmorphone 1 MG/ML Syringe IVPUSH PRN ×3 (00:13→09:11)
[2016-11-22] MEDS: oxyCODONE 5 MG Tab PO PRN ×2 (03:21→07:55)
[2016-11-22] MEDS: Sodium Chloride 0.9% 1,000 ML IV SCH (03:22)
[2016-11-22 04:58] LABS: CHLORIDE,CL 107 mmol/L (98-110); SODIUM,NA 137 mmol/L (136-146)
[2016-11-22] MEDS: Insulin Aspart 100 Units/ML 3 ML Pen SUBCUT SCH (06:36)
[2016-11-22] MEDS: Pantoprazole 40 MG Tab.CR PO SCH (07:22)
[2016-11-22] MEDS: Gemfibrozil 600 MG Tab PO SCH (07:22)
[2016-11-22] MEDS: Enoxaparin 40 MG/0.4 ML Syringe SUBCUT SCH (08:17)
[2016-11-22 08:45] VITALS: BP 146/77
--- NOTE | 2016-11-22 08:59 | PCM.DCSUM1 ---
Discharge Summary - Hospital Course Brief History: This patient is a 46 year old male pmh of insulin requiring diabetes for which he was told by his physician a year and a half ago he no longer needed the insulin and that he could monitor his blood sugars at home and watch his diet as his blood sugars have normalized. The patient presents today with sudden onset of lower midsternal chest pain and right upper quadrant pain that started suddenly while he was doing chores with his brother. The pain was constant all night and was associated with nausea and vomiting. He did not take anything for medications. He has not had diarrhea and is not short of breath. He denies any coughing fevers/chills, no urinary complaints. He reported more pain with any movement as well as with deep breathing and his abdominal pain has intensified since the vomiting. Patient has a history of pancreatitis requiring hospitalization in [place] about 2-1/2 years ago but he still has his gallbladder. This pancreatitis was caused from hypertriglyceridemia. The patient denies any left-sided chest pain or left- sided abdominal pain. He states that the pain on the left side extends down his abdomen but is mostly localized in the right upper area. Patient denies any cardiac history. In the ED WBC noted 13,000 hgb/hct unable to be reported due to grossly lipemic blood sample. NA 133, glucose 218, Triglycerides were unreportable, sample grossly lipemic. Lipase [address] of abdomen revealed peripancreatic stranding representing pancreatitis and mild fatty infiltration of the liver. CXR revealed possible retrocardiac infiltrate. He was admitted due to hypertrigyceridemia induced pancreatitis and hyperglycemia. - Discharge Data Discharge Date: 11/22/16 Discharge Disposition: Home, Self-Care 01 Condition: Good - Discharge Diagnosis/Problem(s) (1) Abdominal pain SNOMED Code(s): 87647415 ICD Code: R10.9 - UNSPECIFIED ABDOMINAL PAIN Status: Acute Qualifiers: Abdominal location: generalized Qualified Code(s): R10.84 - Generalized abdominal pain (2) Diabetes SNOMED Code(s): 30532624 ICD Code: E11.9 - TYPE 2 DIABETES MELLITUS WITHOUT COMPLICATIONS Status: Acute Qualifiers: Diabetes mellitus type: type 2 Diabetes mellitus complication status: with other specified complication Diabetes mellitus long term care social worker insulin use: without fci use Qualified Code(s): E11.69 - Type 2 diabetes mellitus with other specified complication (3) Hypertriglyceridemia SNOMED Code(s): 048370469 ICD Code: E78.1 - PURE HYPERGLYCERIDEMIA Status: Acute (4) Pancreatitis SNOMED Code(s): 69955415 ICD Code: K85.90 - ACUTE PANCREATITIS WITHOUT NECROSIS OR INFECTION, UNSP Status: Acute Qualifiers: Chronicity: acute Pancreatitis type: unspecified pancreatitis type Acute pancreatitis complication: no infection or necrosis Qualified Code(s): K85.90 - Acute pancreatitis without necrosis or infection, unspecified (5) Obesity (BMI 30.0-34.9) SNOMED Code(s): 281985050 ICD Code: E66.9 - OBESITY, UNSPECIFIED Status: Chronic - Patient Summary/Data Consults: Consultations 11/17/16 10:37 Consult to DM [Consult to Diabetic Nurse Specialist] [CONS] Routine - Patient Instructions Diet: Full Liquid Diet (slowly advance to regular low fat diet over next few days to week. ) Activity: As Tolerated Driving: Do Not Drive (No driving while taking narcotics) Showering/Bathing: May Shower Notify Provider of: Fever, Increased Pain, Swelling and Redness, Drainage, Nausea and/or Vomiting - Discharge Plan Prescriptions/Med Rec: Benzonatate [Tessalon Perles] 100 mg PO TID PRN #60 cap PRN Reason: Cough Gemfibrozil [Lopid] 600 mg PO BIDAC #60 tablet Insulin Aspart [NovoLOG] See Protocol SUBCUT TIDAC #2 pen Insulin Glarg,Human.Rec.Analog [LantUS Solostar] 15 units SUBCUT BEDTIME #1 pen oxyCODONE 10 mg PO Q6H PRN #15 tablet PRN Reason: Pain Home Medications: Home Meds Benzonatate [Tessalon Perles] 100 mg PO TID PRN #60 cap 11/22/16 [Rx] Gemfibrozil [Lopid] 600 mg PO BIDAC #60 tablet 11/22/16 [Rx] Insulin Aspart [NovoLOG] See Protocol SUBCUT TIDAC #2 pen 11/22/16 [Rx] Insulin Glarg,Human.Rec.Analog [LantUS Solostar] 15 units SUBCUT BEDTIME #1 pen 11/22/16 [Rx] oxyCODONE 10 mg PO Q6H PRN #15 tablet 11/22/16 [Rx] Patient Handouts: Insulin Aspart injection, Acute Pancreatitis, [id number], Oxycodone tablets or capsules, Insulin Glargine injection, Gemfibrozil tablets Referrals: Luis Fernando Landeros DO [Physician] - 11/28/16 11:30 am - Discharge Summary/Plan Comment DC Time >30 min.: No Discharge Summary/Plan Comment: Discharge Diagnoses; Hypertriglyceridemia induced pancreatitis DM type 2, uncontrolled A1c 9.1 Obesity Chronic cough Systolic grade I/IV heart murmur Julius was admitted and treated with insulin gtt and bowel rest for hypertriglyceridemia induced pancreatitis. Blood sugars and triglycerides did slowly improve. He was swtiched to lantus and Novolog SSI to manage blood sugars , upon discharge blood sugars were well controlled in 100-130s. 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 This was weaned off and he was placed on Oxycodone tablets PRN for pain, which helped make the pain more tolerable. There was mention of being a chronic pain patient and receiving Oxycontin, oxycodone and percocet from a pain doctor in [place]. No recent medications have been filled at nearest pharmacies. I did obtain records from past admission in [place] for same diagnosis. He was sent home on Lantus Novolog and Gemfibrozil, but he claims he was told to stop taking them due to DM being under control. Systolic murmur was noted during that admission and he had not followed up on this as wel. In these records he was also worked up for chronic cough with ENT provider, who was not able to find source of cough. Throughout his stay he slowly improved. Today he is saying he is ready for discharge, "as long as I get pain medications." He is tolerating CL to FL diet well. He is encouraged to remain on this diet for the next several days and to slowly increase to regular ADA low fat diet. Triglycerides today are 350, BS controlled on insulin. He was started on Gemfibrozil 600 mg BID. I will discharge him on this as well as Novolog SSI and Lantus 15 units daily at bedtime. I will encourage follow up with DM educator. Will establish him with PCP here in town. May be troublesome for follow up due to no insurance. I did prescribe him Oxycodone 10 mg Q6h PRN pain #15 tablets. Lipase normalized, 35 on discharge. He is to return to clinic or ED if concerns should arise. - General Info Date of Service: 11/22/16 Admission Dx/Problem (Free Text: Admission Diagnosis/Problem Admission Diagnosis/Problem Pancreatitis Subjective Update: Reports having pain intermittently, sleeping comfortable in bed with upon my entering room. He reports flatus. Tolerating CL to FL diet without nausea or vomiting. . No chest pain or SOB. Pain medication regimen is working. Functional Status: Reports: pain controlled, tolerating diet, ambulating, urinating - Review of Systems General: Reports: No Symptoms. Denies: Fever HEENT: Reports: no symptoms Pulmonary: Reports: no symptoms, cough (chronic). Denies: shortness of breath Cardiovascular: Reports: No Symptoms. Denies: Chest Pain Gastrointestinal: Reports: Abdominal pain (intermittently to epigastric and RUQ) , Flatus. Denies: Nausea, Vomiting Genitourinary: Reports: no symptoms Musculoskeletal: Reports: no symptoms Skin: Reports: no symptoms Neurological: Reports: No Symptoms Psychiatric: Reports: no symptoms - Patient Data Vitals - Most Recent: Last Vital Signs Temp 97.0 F 11/22/16 08:00 Pulse 75 11/22/16 08:00 Resp 20 11/22/16 08:00 BP 146/77 H 11/22/16 08:00 Pulse Ox 97 11/22/16 08:00 Weight - Most Recent: 91.3 kg I&O - Last 24 hours: Intake & Output 11/21/16 11/22/16 11/22/16 22:59 06:59 14:59 Intake Total 1936 2585 Output Total 1730 1555 Balance 206 1030 Lab Results - Last 24 hrs: Laboratory Results - last 24 hr 11/21/16 11/21/16 11/21/16 Range/Units 06:51 11:17 16:33 WBC (4.0-11.0) K/uL RBC (4.50-5.90) M/uL Hgb (13.0-17.0) g/dL Hct (38.0-50.0) % MCV (80.0-98.0) fL MCH (27.0-32.0) pg MCHC (31.0-37.0) g/dL RDW Std Deviation (28.0-62.0) fl RDW Coeff of Jessica (11.0-15.0) % Plt Count (150-400) K/uL MPV (7.40-12.00) fL Neut % (Auto) (48.0-80.0) % Lymph % (Auto) (16.0-40.0) % [place] % (Auto) (0.0-15.0) % Eos % (Auto) (0.0-7.0) % Baso % (Auto) (0.0-1.5) % Neut # (Auto) (1.4-5.7) K/uL Lymph # (Auto) (0.6-2.4) K/uL [place] # (Auto) (0.0-0.8) K/uL Eos # (Auto) (0.0-0.7) K/uL Baso # (Auto) (0.0-0.1) K/uL Nucleated RBC % /100WBC Nucleated RBCs # K/uL Sodium (136-146) mmol/L Potassium (3.5-5.1) mmol/L Chloride (98-110) mmol/L Carbon Dioxide (21-31) mmol/L BUN (6.0-23.0) mg/dL Creatinine (0.6-1.5) mg/dL Est Cr Clr Drug Dosing mL/min Estimated GFR (MDRD) ml/min Glucose (60-110) mg/dL POC Glucose 103 166 H 104 (60-110) mg/dL Calcium (8.8-10.8) mg/dL Total Bilirubin (0.1-1.5) mg/dL AST (5-40) IU/L ALT (8-54) IU/L Alkaline Phosphatase (40-150) Total Protein (6.0-8.0) g/dL Albumin (3.5-5.0) g/dL Globulin (2.0-3.5) g/dL Albumin/Globulin Ratio (1.3-2.8) Triglycerides (10-190) mg/dL 11/21/16 11/22/16 11/22/16 Range/Units 20:37 04:22 04:22 WBC 5.72 (4.0-11.0) K/uL RBC 4.22 L (4.50-5.90) M/uL Hgb 12.8 L (13.0-17.0) g/dL Hct 37.0 L (38.0-50.0) % MCV 87.7 (80.0-98.0) fL MCH 30.3 (27.0-32.0) pg MCHC 34.6 (31.0-37.0) g/dL RDW Std Deviation 41.3 (28.0-62.0) fl RDW Coeff of Jessica 13 (11.0-15.0) % Plt Count 201 (150-400) K/uL MPV 11.20 (7.40-12.00) fL Neut % (Auto) 55.8 (48.0-80.0) % Lymph % (Auto) 28.7 (16.0-40.0) % [place] % (Auto) 10.5 (0.0-15.0) % Eos % (Auto) 4.7 (0.0-7.0) % Baso % (Auto) 0.3 (0.0-1.5) % Neut # (Auto) 3.2 (1.4-5.7) K/uL Lymph # (Auto) 1.6 (0.6-2.4) K/uL [place] # (Auto) 0.6 (0.0-0.8) K/uL Eos # (Auto) 0.3 (0.0-0.7) K/uL Baso # (Auto) 0.0 (0.0-0.1) K/uL Nucleated RBC % 0.0 /100WBC Nucleated RBCs # 0 K/uL Sodium 137 (136-146) mmol/L Potassium 3.6 (3.5-5.1) mmol/L Chloride 107 (98-110) mmol/L Carbon Dioxide 21 (21-31) mmol/L BUN 8 (6.0-23.0) mg/dL Creatinine 0.8 (0.6-1.5) mg/dL Est Cr Clr Drug Dosing 101.43 mL/min Estimated GFR (MDRD) > 60.0 ml/min Glucose 131 H (60-110) mg/dL POC Glucose 134 H (60-110) mg/dL Calcium 8.6 L (8.8-10.8) mg/dL Total Bilirubin 0.5 (0.1-1.5) mg/dL AST 26 (5-40) IU/L ALT 32 (8-54) IU/L Alkaline Phosphatase 65 (40-150) Total Protein 6.4 (6.0-8.0) g/dL Albumin 3.5 (3.5-5.0) g/dL Globulin 2.9 (2.0-3.5) g/dL Albumin/Globulin Ratio 1.2 L (1.3-2.8) Triglycerides 350 H (10-190) mg/dL 11/22/16 Range/Units 06:27 WBC (4.0-11.0) K/uL RBC (4.50-5.90) M/uL Hgb (13.0-17.0) g/dL Hct (38.0-50.0) % MCV (80.0-98.0) fL MCH (27.0-32.0) pg MCHC (31.0-37.0) g/dL RDW Std Deviation (28.0-62.0) fl RDW Coeff of Jessica (11.0-15.0) % Plt Count (150-400) K/uL MPV (7.40-12.00) fL Neut % (Auto) (48.0-80.0) % Lymph % (Auto) (16.0-40.0) % [place] % (Auto) (0.0-15.0) % Eos % (Auto) (0.0-7.0) % Baso % (Auto) (0.0-1.5) % Neut # (Auto) (1.4-5.7) K/uL Lymph # (Auto) (0.6-2.4) K/uL [place] # (Auto) (0.0-0.8) K/uL Eos # (Auto) (0.0-0.7) K/uL Baso # (Auto) (0.0-0.1) K/uL Nucleated RBC % /100WBC Nucleated RBCs # K/uL Sodium (136-146) mmol/L Potassium (3.5-5.1) mmol/L Chloride (98-110) mmol/L Carbon Dioxide (21-31) mmol/L BUN (6.0-23.0) mg/dL Creatinine (0.6-1.5) mg/dL Est Cr Clr Drug Dosing mL/min Estimated GFR (MDRD) ml/min Glucose (60-110) mg/dL POC Glucose 114 H (60-110) mg/dL Calcium (8.8-10.8) mg/dL Total Bilirubin (0.1-1.5) mg/dL AST (5-40) IU/L ALT (8-54) IU/L Alkaline Phosphatase (40-150) Total Protein (6.0-8.0) g/dL Albumin (3.5-5.0) g/dL Globulin (2.0-3.5) g/dL Albumin/Globulin Ratio (1.3-2.8) Triglycerides (10-190) mg/dL ISAIAH Results - Last 24 hrs: Microbiology 11/16/16 16:08 Aerobic Blood Culture - Final Blood - Venous - Lab Draw NO GROWTH AFTER 5 DAYS Anaerobic Blood Culture - Final NO GROWTH AFTER 5 DAYS 11/16/16 16:00 Aerobic Blood Culture - Final Blood - Venous NO GROWTH AFTER 5 DAYS Anaerobic Blood Culture - Final NO GROWTH AFTER 5 DAYS Med Orders - Current: Current Medications Benzonatate (Tessalon Perles) 200 mg PO TID [facility] Last Admin: 11/22/16 07:22 Dose: 200 mg Enoxaparin Sodium (Lovenox) 40 mg SUBCUT Q24H [facility] Last Admin: 11/22/16 08:17 Dose: 40 mg Gemfibrozil (Lopid) 600 mg PO BIDAC [facility] Last Admin: 11/22/16 07:22 Dose: 600 mg Hydromorphone HCl (Dilaudid) 1 mg IVPUSH Q3H PRN PRN Reason: severe pain Last Admin: 11/22/16 05:22 Dose: 1 mg Sodium Chloride (Normal Saline) 1,000 mls @ 150 mls/hr IV ASDIRECTED [facility] Last Admin: 11/22/16 03:22 Dose: 150 mls/hr Insulin Aspart (Novolog) 0 unit SUBCUT TIDAC [facility] PRN Reason: Protocol Last Admin: 11/22/16 06:36 Dose: Not Given Insulin Glargine (Lantus Solostar) 15 units SUBCUT BEDTIME [facility] Last Admin: 11/21/16 20:38 Dose: 15 units Lorazepam (Ativan) 1 mg IVPUSH Q6H PRN PRN Reason: Anxiety Last Admin: 11/17/16 15:29 Dose: 1 mg Ondansetron HCl (Zofran) 4 mg IVPUSH Q4H PRN PRN Reason: Nausea/Vomiting Last Admin: 11/17/16 13:29 Dose: 4 mg Oxycodone HCl (Oxycodone) 5 - 10 mg PO Q4H PRN PRN Reason: Pain Last Admin: 11/22/16 07:55 Dose: 10 mg Pantoprazole Sodium (Protonix) 40 mg PO BIDAC APOLINAR Last Admin: 11/22/16 07:22 Dose: 40 mg Sodium Chloride (Saline Flush) 10 ml FLUSH ASDIRECTED PRN PRN Reason: Keep Vein Open Sodium Chloride (Saline Flush) 2.5 ml FLUSH ASDIRECTED PRN PRN Reason: Keep Vein Open Discontinued Medications Hydromorphone HCl (Dilaudid) 1 mg IVPUSH ONETIME ONE Stop: 11/16/16 13:57 Last Admin: 11/16/16 14:06 Dose: 1 mg Hydromorphone HCl (Dilaudid) 1 mg IVPUSH ONETIME ONE Stop: 11/16/16 15:49 Last Admin: 11/16/16 16:17 Dose: 1 mg Hydromorphone HCl (Dilaudid) 0.5 mg IVPUSH Q2H PRN PRN Reason: Pain (severe 7-10) Last Admin: 11/16/16 22:44 Dose: 0.5 mg Hydromorphone HCl (Dilaudid) 1 mg IVPUSH Q1H PRN PRN Reason: Pain (severe 7-10) Last Admin: 11/18/16 10:23 Dose: 1 mg Hydromorphone HCl (Dilaudid Marketing Reporting Analyst 6 Mg In Ns 30 Ml) 6 mg IV ASDIRECTED PRN; Protocol PRN Reason: Pain Last Admin: 11/20/16 09:57 Dose: 6 mg Sodium Chloride (Normal Saline) 1,000 mls @ 999 mls/hr IV STAT ONE Stop: 11/16/16 14:56 Last Admin: 11/16/16 14:04 Dose: 999 mls/hr Sodium Chloride (Normal Saline) 1,000 mls @ 150 mls/hr IV STAT ONE Stop: 11/16/16 22:27 Last Infusion: 11/16/16 17:24 Dose: Infused Ceftriaxone Sodium/Dextrose 1 (gm/ Premix) 50 mls @ 100 mls/hr IV ONETIME ONE Stop: 11/16/16 16:17 Last Admin: 11/16/16 16:16 Dose: 100 mls/hr Potassium Chloride/Sodium Chloride (Normal Saline With 20 Meq Kcl) 1,000 mls @ 150 mls/hr IV ASDIRECTED APOLINAR Last Infusion: 11/16/16 20:37 Dose: 150 mls/hr Pantoprazole Sodium 40 mg/ (Sodium Chloride) 10 mls @ 300 mls/hr IV BID APOLINAR Last Admin: 11/21/16 08:29 Dose: 300 mls/hr Sodium Chloride (Normal Saline) 1,000 mls @ 999 mls/hr IV .Bolus ONE Stop: 11/16/16 20:52 Last Admin: 11/16/16 20:38 Dose: 999 mls/hr Insulin Human Regular 100 unit (/ Sodium Chloride) 100 mls @ 2 mls/hr IV Q24H APOLINAR; 2 UNIT/HR PRN Reason: Protocol Last Admin: 11/18/16 15:35 Dose: Not Given Insulin Human Regular 100 unit (/ Sodium Chloride) 100 mls @ 2 mls/hr IV TITRATE APOLINAR; 2 UNIT/HR PRN Reason: Protocol Last Admin: 11/19/16 15:37 Dose: 1 unit/hr, 1 mls/hr Insulin Aspart (Novolog) 0 unit SUBCUT Q6HR APOLINAR PRN Reason: Protocol Last Admin: 11/17/16 06:10 Dose: 2 units Insulin Aspart (Novolog) 0 unit SUBCUT Q6H APOLINAR PRN Reason: Protocol Last Admin: 11/20/16 12:35 Dose: Not Given Iopamidol (Isovue Multipack-370 (76%)) 100 ml IVPUSH ONETIME STA Stop: 11/16/16 15:16 Last Admin: 11/16/16 15:16 Dose: 100 ml Iopamidol (Isovue Multipack-370 (76%)) 100 ml IVPUSH ONETIME STA Stop: 11/20/16 11:46 Last Admin: 11/20/16 11:47 Dose: 100 ml Lorazepam (Ativan) 1 mg IM Q6H PRN PRN Reason: Anxiety Ondansetron HCl (Zofran) 4 mg IVPUSH ONETIME ONE Stop: 11/16/16 13:57 Last Admin: 11/16/16 14:05 Dose: 4 mg Ondansetron HCl (Zofran) 8 mg IVPUSH Q8H PRN PRN Reason: Nausea/Vomiting Pantoprazole Sodium (Protonix Iv) 80 mg IVPUSH .BOLUS ONE Stop: 11/16/16 13:57 Last Admin: 11/16/16 14:06 Dose: 80 mg Pantoprazole Sodium (Protonix Iv) 40 mg IV Q12HR APOLINAR - Exam General: Reports: alert, oriented, cooperative Neck: Reports: supple Lungs: Reports: Clear to auscultation, Normal respiratory effort Cardiovascular: Reports: Regular Rate, Regular Rhythm, Murmurs (systolic, grade I, can intermittently hear at LUSB) Abdomen: Reports: bowel sounds present, soft, no distension, tenderness. Denies : rigidity, rebound Extremities: Reports: no edema, normal pulses Neurological: Reports: no new focal deficit Psy/Mental Status: Reports: alert, normal affect, normal mood *Q Meaningful Use (DIS) - VTE *Q VTE Criteria *Q: - Stroke *Q Stroke Criteria *Q: - AMI *Q AMI Criteria *Q:
== END 2016-11-22 11:00 | disposition home or self-care (01) | DRG 439 ==
LOC: MW.ED 13:36 → MW.MS 15:49
PROVIDERS: ADMIT Internal Medicine; ATTEND Internal Medicine
DX: K85.90 Acute pancreatitis without necrosis or infection, unspecified (principal); F10.288 Alcohol dependence with other alcohol-induced disorder; E78.1 Pure hyperglyceridemia; E66.9 Obesity, unspecified; E11.65 Type 2 diabetes mellitus with hyperglycemia; M94.0 Chondrocostal junction syndrome [Tietze]; Z68.33 Body mass index [BMI] 33.0-33.9, adult; Z79.4 Long term (current) use of insulin
CPT/HCPCS: 36415; 71010; 71010-26; 74177; 74177-26; 76705; 76705-26; 80048; 80053; 80061; 81001; 82009; 82150; 82962; 83036; 83605; 83690; 83735; 84478; 84484; 85025; 87040; 93005; 96361; 96374; 96375; 96376; 99285; 99285-25; A9270-GY; C9113; J0696; J1170; J1650; J1815-GY ×2; J2060; J2405; J3480; J7030; J7040; Q9967

== ENCOUNTER → 2016-11-28 | Outpatient (CLI) | payer SELFPAY ==
[2016-11-28 13:00] LABS: CHLORIDE,CL 105 mmol/L (98-110); SODIUM,NA 139 mmol/L (136-146)
== END ==
LOC: MW.CHIM 12:12
PROVIDERS: ATTEND Internal Medicine
DX: K85.90 Acute pancreatitis without necrosis or infection, unspecified (principal)
CPT/HCPCS: 36415; 80053; 80061; 82150; 83615; 83690; 85025

== ENCOUNTER 2017-04-19 13:53 | Inpatient (IN) | payer MEDICAID, OTHER ==
[2017-04-19] MEDS ORDERED: Docusate Sodium 100 MG Cap PO PRN (13:58)
[2017-04-19] MEDS ORDERED: Sodium Chloride 0.9% 2.5 ML Syringe FLUSH PRN (13:58)
[2017-04-19] MEDS ORDERED: Ondansetron 4 MG Tab.DIS PO PRN (13:58)
[2017-04-19] MEDS ORDERED: Temazepam 15 MG Cap PO PRN (13:58)
[2017-04-19] MEDS ORDERED: Sodium Chloride 0.9% 10 ML Syringe FLUSH PRN (13:58)
[2017-04-19] MEDS: Sodium Chloride 0.9% 1,000 ML IV SCH ×2 (14:35→23:10)
[2017-04-19] MEDS: HYDROmorphone 1 MG/ML Syringe IVPUSH PRN ×5 (14:39→23:12)
[2017-04-19] MEDS: Insulin Aspart 100 Units/ML 3 ML Pen SUBCUT SCH ×2 (14:54→21:02)
[2017-04-19] MEDS: Enoxaparin 40 MG/0.4 ML Syringe SUBCUT SCH (14:57)
[2017-04-19] MEDS ORDERED: Iopamidol 755 Mg/ML 100 ML Bottle IVPUSH STA (15:21)
--- NOTE | 2017-04-19 15:52 | CT ---
CT of the abdomen and pelvis with contrast. HISTORY: Pancreatitis TECHNIQUE: Axial CT images were obtained of the abdomen and pelvis following administration of 100 mL of Isovue-370 in the right arm without complication. Coronal and sagittal reconstructions obtained. FINDINGS: The lung bases are clear, no pleural effusion. The liver, spleen, adrenal glands, and pancreas appear normal. The gallbladder is normal. Visualized retroperitoneal structures appear normal. No bulky retroperitoneal lymphadenopathy or abdominal asci jose martin. The kidneys enhance and function symmetrically without evidence of obstructive uropathy. The large and small bowel are normal in caliber without evidence of obstruction. No focal pericolonic inflammation or stranding. The appendix is normal. No bulky pelvic lymphadenopathy or free pelvic fl uid. Urinary bladder is normal. No suspicious osseous abnormalities identified. IMPRESSION: No acute findings within the abdomen or pelvis.
[2017-04-19] MEDS ORDERED: FLU Vacc QS 2017-18 (6mos UP)/PF 60 MCG/0.5 ML Syringe IM ONE (16:30)
[2017-04-20] MEDS: HYDROmorphone 1 MG/ML Syringe IVPUSH PRN ×9 (02:19→22:35)
[2017-04-20] MEDS: Insulin Aspart 100 Units/ML 3 ML Pen SUBCUT SCH ×4 (02:22→20:18)
[2017-04-20 06:40] LABS: CHLORIDE,CL 104 mmol/L (98-110); SODIUM,NA 134 mmol/L (136-146)
[2017-04-20] MEDS: Sodium Chloride 0.9% 1,000 ML IV SCH ×3 (06:50→22:32)
[2017-04-20] MEDS: Enoxaparin 40 MG/0.4 ML Syringe SUBCUT SCH (08:26)
--- NOTE | 2017-04-20 09:26 | PCM.HP ---
H&P History of Present Illness - General Date of Service: 04/19/17 Admit Problem/Dx: Admission Diagnosis/Problem Admission Diagnosis/Problem Pancreatitis The patient was admitted directly from the clinic. Source of Information: Patient, Family History Limitations: Reports: No Limitations - History of Present Illness Initial Comments - Free Text/Narative: The patient is a 46-year-old gentleman who is presented to the clinic with a chief complaint of abdominal pain and back pain. The patient has not checked his blood sugar this morning. Patient was previously evaluated for his diabetes and hypertriglyceridemia on January 04, 2017. Patient says that he has been compliant with his medications. Patient also says that he has been having pain in his left and right upper quadrant that is radiating to his back and into his chest. Patient says this been going on for approximately 2 weeks. Patient does not have diaphoresis but he has had some dizziness and lightheadedness that have been associated with this. Patient also has some nausea vomiting patient says that his pain level is a 6 or 7 out of 10 on the pain scale. Patient has been taking tramadol as an outpatient and this has not been helping. The patient may been noncompliant with his medications. Patient has denied any trauma. He's had no specific aggravating or relieving factors. Onset of Symptoms: Reports: Gradual Duration of Symptoms: Reports: Day(s): Location: Reports: Abdomen Quality: Reports: Same as Previous Episode, Stabbing Severity: Moderate Improves with: Reports: None Worsens with: Reports: None Associated Symptoms: Reports: Nausea/Vomiting Right Abdomen Pain Score (Numeric/FACES): 9 right back Pain Score (Numeric/FACES): 7 - Related Data Allergies/Adverse Reactions: Allergies Allergy/AdvReac Type Severity Reaction Status Date / Time No Known Allergies Allergy Verified 11/16/16 13:46 Home Medications: Home Meds Benzonatate [Tessalon Perles] 100 mg PO TID PRN #60 cap 11/22/16 [Rx] Gemfibrozil [Lopid] 600 mg PO BIDAC #60 tablet 11/22/16 [Rx] Insulin Aspart [NovoLOG] See Protocol SUBCUT TIDAC #2 pen 11/22/16 [Rx] Insulin Glarg,Human.Rec.Analog [LantUS Solostar] 15 units SUBCUT BEDTIME #1 pen 11/22/16 [Rx] oxyCODONE 10 mg PO Q6H PRN #15 tablet 11/22/16 [Rx] Past Medical History HEENT History: Reports: Impaired Vision, Other (See Below) Other HEENT History: wears eyeglasses Cardiovascular History: Reports: High Cholesterol, Hypertension Respiratory History: Reports: None Gastrointestinal History: Reports: Pancreatitis Other Gastrointestinal History: dx with pancreatitis 6 years ago. Genitourinary History: Reports: None Musculoskeletal History: Reports: Back Pain, Chronic, Other (See Below) Other Musculoskeletal History: Sees a pain specialist in [place] for back shoulder pain Neurological History: Reports: None Psychiatric History: Reports: None Endocrine/Metabolic History: Reports: Diabetes, Type II Hematologic History: Reports: None Immunologic History: Reports: None Oncologic (Cancer) History: Reports: None - Past Surgical History Musculoskeletal Surgical History: Reports: None Social & Family History - Family History Family Medical History: Unobtainable HEENT: Reports: Impaired Vision Cardiac: Reports: CAD, [place] OBGYN: Reports: Musculoskeletal: Reports: Arthritis, Back pain, Chronic Endocrine/Metabolic: Reports: Diabetes, type II - Tobacco Use Smoking Status *Q: Never Smoker Years of Tobacco use: 2 Packs/Tins Daily: 0.5 Used Tobacco, but Quit: Yes Month Tobacco Last Used: 01/2015 Second Hand Smoke Exposure: No - Caffeine Use Caffeine Use: Reports: Soda - Alcohol Use Days Per Week of Alcohol Use: 2 Number of Drinks Per Day: 6 Total Drinks Per Week: 12 - Recreational Drug Use Recreational Drug Use: No H&P Review of Systems - Review of Systems: Review Of Systems: See Below General: Reports: Weakness, Decreased Appetite HEENT: Reports: No Symptoms Pulmonary: Reports: No Symptoms Cardiovascular: Reports: No Symptoms Gastrointestinal: Reports: Abdominal Pain, Anorexia, Nausea, Vomiting Genitourinary: Reports: No Symptoms Musculoskeletal: Reports: Back Pain, Muscle Pain Skin: Reports: No Symptoms Psychiatric: Reports: No Symptoms Neurological: Reports: No Symptoms Hematologic/Lymphatic: Reports: No Symptoms Immunologic: Reports: No Symptoms Exam - Exam Exam: See Below - Vital Signs Vital Signs: Last Vital Signs Temp 35.8 C 04/20/17 08:00 Pulse 75 04/20/17 08:00 Resp 20 04/20/17 08:00 BP 128/85 04/20/17 08:00 Pulse Ox 96 04/20/17 08:00 Weight: 88.082 kg - Exam Quality Assessment: No: Supplemental Oxygen General: Alert, Oriented, Moderate Distress HEENT: Conjunctiva Clear, EACs Clear, Nares Patent. No: Mucosa Moist & [place] ( Dry) Neck: Supple, Trachea Midline. No: Lymphadenopathy Lungs: Clear to Auscultation, Normal Respiratory Effort Cardiovascular: Regular Rate, Regular Rhythm GI/Abdominal Exam: Soft, Tender (Epigastrium primarily). No: Guarding, Rigid Back Exam: Normal Inspection Extremities: No Pedal Edema Skin: Warm, Dry Neurological: Cranial Nerves Intact Neuro Extensive - Mental Status: Alert, Oriented x3 Neuro Extensive - Motor, Sensory, Reflexes: CN II-XII Intact, Normal Gait Psychiatric: Alert, Normal Mood - Patient Data Lab Results Last 24 hrs: Laboratory Results - last 24 hr 04/19/17 04/19/17 04/19/17 Range/Units 14:22 14:31 20:13 WBC (4.0-11.0) K/uL RBC (4.50-5.90) M/uL Hct (38.0-50.0) % RDW Std Deviation (28.0-62.0) fl RDW Coeff of Jessica (11.0-15.0) % Plt Count (150-400) K/uL MPV (7.40-12.00) fL Neut % (Auto) (48.0-80.0) % Lymph % (Auto) (16.0-40.0) % [place] % (Auto) (0.0-15.0) % Eos % (Auto) (0.0-7.0) % Baso % (Auto) (0.0-1.5) % Neut # (Auto) (1.4-5.7) K/uL Lymph # (Auto) (0.6-2.4) K/uL [place] # (Auto) (0.0-0.8) K/uL Eos # (Auto) (0.0-0.7) K/uL Baso # (Auto) (0.0-0.1) K/uL Nucleated RBC % /100WBC Nucleated RBCs # K/uL Sodium (136-146) mmol/L Potassium (3.5-5.1) mmol/L Chloride (98-110) mmol/L Carbon Dioxide (21-31) mmol/L BUN (6.0-23.0) mg/dL Creatinine (0.6-1.5) mg/dL Est Cr Clr Drug Dosing mL/min Estimated GFR (MDRD) ml/min Glucose (60-110) mg/dL POC Glucose 227 H 160 H (60-110) mg/dL Calcium (8.8-10.8) mg/dL Phosphorus 2.5 (2.4-4.7) mg/dL Magnesium 3.0 H (1.5-2.3) mEq/L Total Bilirubin (0.1-1.5) mg/dL AST (5-40) IU/L ALT (8-54) IU/L Alkaline Phosphatase (40-150) Total Protein (6.0-8.0) g/dL Albumin (3.5-5.0) g/dL Globulin (2.0-3.5) g/dL Albumin/Globulin Ratio (1.3-2.8) 04/20/17 04/20/17 04/20/17 Range/Units 01:55 04:52 04:52 WBC 3.66 L (4.0-11.0) K/uL RBC 4.68 (4.50-5.90) M/uL Hct 41.3 (38.0-50.0) % RDW Std Deviation 42.2 (28.0-62.0) fl RDW Coeff of Jessica 13 (11.0-15.0) % Plt Count 199 (150-400) K/uL MPV 12.20 H (7.40-12.00) fL Neut % (Auto) 43.2 L (48.0-80.0) % Lymph % (Auto) 42.1 H (16.0-40.0) % [place] % (Auto) 9.0 (0.0-15.0) % Eos % (Auto) 4.9 (0.0-7.0) % Baso % (Auto) 0.8 (0.0-1.5) % Neut # (Auto) 1.6 (1.4-5.7) K/uL Lymph # (Auto) 1.5 (0.6-2.4) K/uL [place] # (Auto) 0.3 (0.0-0.8) K/uL Eos # (Auto) 0.2 (0.0-0.7) K/uL Baso # (Auto) 0.0 (0.0-0.1) K/uL Nucleated RBC % 0.0 /100WBC Nucleated RBCs # 0 K/uL Sodium 134 L (136-146) mmol/L Potassium 4.7 (3.5-5.1) mmol/L Chloride 104 (98-110) mmol/L Carbon Dioxide 20 L (21-31) mmol/L BUN 10 (6.0-23.0) mg/dL Creatinine 0.8 (0.6-1.5) mg/dL Est Cr Clr Drug Dosing 101.43 mL/min Estimated GFR (MDRD) > 60.0 ml/min Glucose 206 H (60-110) mg/dL POC Glucose 156 H (60-110) mg/dL Calcium 8.9 (8.8-10.8) mg/dL Phosphorus (2.4-4.7) mg/dL Magnesium (1.5-2.3) mEq/L Total Bilirubin 0.3 (0.1-1.5) mg/dL AST 48 H (5-40) IU/L ALT 43 (8-54) IU/L Alkaline Phosphatase 60 (40-150) Total Protein 7.6 (6.0-8.0) g/dL Albumin 3.9 (3.5-5.0) g/dL Globulin 3.7 H (2.0-3.5) g/dL Albumin/Globulin Ratio 1.1 L (1.3-2.8) Result Diagrams: 04/20/17 04:52 04/20/17 04:52 *Q Meaningful Use (ADM) - VTE *Q VTE Criteria *Q: - VTE Risk Assess *Q Each Risk Factor Represents 1 Point: Age 41 - 59 years, Obesity (BMI greater than 30) Total Score 1 Point Risk Factors: 2 - Stroke *Q Stroke Criteria *Q: - AMI *Q AMI Criteria *Q: - Problem List (1) Pancreatitis SNOMED Code(s): 62251305 ICD Code: K85.90 - ACUTE PANCREATITIS WITHOUT NECROSIS OR INFECTION, UNSP Status: Acute Priority: High Current Visit: Yes Qualifiers: Chronicity: acute Pancreatitis type: unspecified pancreatitis type Acute pancreatitis complication: no infection or necrosis Qualified Code(s): K85.90 - Acute pancreatitis without necrosis or infection, unspecified (2) Hypertriglyceridemia SNOMED Code(s): 742601569 ICD Code: E78.1 - PURE HYPERGLYCERIDEMIA Status: Chronic Priority: High Current Visit: Yes Problem List Initiated/Reviewed/Updated: Yes Orders Last 24hrs: Active Orders 24 hr Category Date Time Status Patient Status [ADT] Routine ADT 04/19/17 13:58 Active Ambulate [RC] PER UNIT ROUTINE Care 04/19/17 14:00 Active Blood Glucose Check, Bedside [RC] QIDACANDBED Care 04/19/17 13:58 Inactive Oxygen Therapy [RC] PRN Care 04/19/17 13:58 Active POC Glucose [Blood Glucose Check, Bedside] [RC] Q6H Care 04/19/17 14:17 Active Up ad Ruba [RC] ASDIRECTED Care 04/19/17 13:58 Active VTE/DVT Education [RC] PER UNIT ROUTINE Care 04/19/17 13:58 Active Vital Signs [RC] Q4H Care 04/19/17 13:58 Active Consult to DM [Consult to Diabetic Nurse Specialist] [ Cons 04/20/17 08:27 Active CONS] Routine Nothing per Oral Now Diet [DIET] Diet 04/19/17 Dinner Active LIPID PANEL [CHEM] Routine Lab 04/20/17 04:52 Received Docusate Sodium [Colace] Med 04/19/17 13:58 Active 100 mg PO BID PRN Enoxaparin [Lovenox] Med 04/19/17 14:00 Active 40 mg SUBCUT DAILY HYDROmorphone [Dilaudid] Med 04/19/17 13:58 Active 0.5 mg IVPUSH Q2H PRN Insulin Aspart [NovoLOG] Med 04/19/17 14:30 Active See Protocol SUBCUT Q6H Ondansetron [Zofran ODT] Med 04/19/17 13:58 Active 4 mg PO Q6H PRN Sodium Chloride 0.9% [Normal Saline] 1,000 ml Med 04/19/17 14:00 Active IV ASDIRECTED Sodium Chloride 0.9% [Saline Flush] Med 04/19/17 13:58 Active 10 ml FLUSH ASDIRECTED PRN Sodium Chloride 0.9% [Saline Flush] Med 04/19/17 13:58 Active 2.5 ml FLUSH ASDIRECTED PRN Temazepam [Restoril] Med 04/19/17 13:58 Active 15 mg PO BEDTIME PRN Peripheral IV Insertion Adult [OM.PC] Routine Oth 04/19/17 13:58 Ordered Resuscitation Status Routine Resus Stat 04/19/17 13:58 Ordered Medication Orders Docusate Sodium (Colace) 100 mg PO BID PRN PRN Reason: Constipation Enoxaparin Sodium (Lovenox) 40 mg SUBCUT DAILY [facility] Last Admin: 04/20/17 08:26 Dose: 40 mg Admin: 04/19/17 14:57 Dose: 40 mg Hydromorphone HCl (Dilaudid) 0.5 mg IVPUSH Q2H PRN PRN Reason: Pain (severe 7-10) Last Admin: 04/20/17 06:47 Dose: 0.5 mg Admin: 04/20/17 02:19 Dose: 0.5 mg Admin: 04/19/17 23:12 Dose: 0.5 mg Admin: 04/19/17 21:09 Dose: 0.5 mg Admin: 04/19/17 18:52 Dose: 0.5 mg Admin: 04/19/17 16:45 Dose: 0.5 mg Admin: 04/19/17 14:39 Dose: 0.5 mg Sodium Chloride (Normal Saline) 1,000 mls @ 125 mls/hr IV ASDIRECTED [facility] Last Admin: 04/20/17 06:50 Dose: 125 mls/hr Infusion: 04/20/17 06:50 Dose: 125 mls/hr Admin: 04/19/17 23:10 Dose: 125 mls/hr Infusion: 04/19/17 22:35 Dose: 125 mls/hr Admin: 04/19/17 14:35 Dose: 125 mls/hr Insulin Aspart (Novolog) 0 unit SUBCUT Q6H [facility] PRN Reason: Protocol Last Admin: 04/20/17 08:25 Dose: 2 units Admin: 04/20/17 02:22 Dose: 2 units Admin: 04/19/17 21:02 Dose: 2 units Admin: 04/19/17 14:54 Dose: 4 units Ondansetron HCl (Zofran Odt) 4 mg PO Q6H PRN PRN Reason: nausea, able to take PO Last Admin: 04/20/17 08:39 Dose: 4 mg Sodium Chloride (Saline Flush) 10 ml FLUSH ASDIRECTED PRN PRN Reason: Keep Vein Open Sodium Chloride (Saline Flush) 2.5 ml FLUSH ASDIRECTED PRN PRN Reason: Keep Vein Open Temazepam (Restoril) 15 mg PO BEDTIME PRN PRN Reason: Sleep Assessment/Plan Comment:: The patient has also exhibited positive pain behaviors. He is tender in the epigastrium and right upper quadrants. Patient has elevations of his triglycerides at 3472 mg/dL. The patient will be admitted as an inpatient for pancreatitis that is evident clinically. CT scan of his abdomen and pelvis a been ordered. The patient's hemoglobin A1c is also a 10.2%. adult educator will be consult. Current studies have recommended the use of IV insulin as the patient's blood sugars greater than 500 mg/dL. Patient's current lunch sugar was at 238 mg/dL. Also plasmapheresis is not recommended for patients with triglycerides less than 5000 mg/dL. Patient will be admitted as an inpatient secondary to clinical pancreatitis. Also he'll be kept nothing by mouth. I've ordered medication for pain control. The patient will be appropriate for discharge once his medical issues are stabilized and he is able to tolerate fluids. The patient will be evaluated and his treatment plan will be adjusted accordingly.
--- NOTE | 2017-04-20 12:50 | PCM.PN ---
<Baluch,Landry - Last Filed: 04/20/17 19:12> - General Info Date of Service: 04/20/17 Admission Dx/Problem (Free Text): Admission Diagnosis/Problem Admission Diagnosis/Problem Pancreatitis The patient was admitted directly from the clinic. Subjective Update: Patient still complaining of abdominal pain radiating to his back. Otherwise no other concerns. Functional Status: Denies: Pain Controlled - Review of Systems General: Reports: Weakness, Fatigue HEENT: Reports: No Symptoms Pulmonary: Reports: No Symptoms Cardiovascular: Reports: No Symptoms Gastrointestinal: Reports: Abdominal Pain, Decreased Appetite Genitourinary: Reports: No Symptoms Musculoskeletal: Reports: No Symptoms Skin: Reports: No Symptoms Neurological: Reports: No Symptoms Psychiatric: Reports: No Symptoms - Patient Data Vitals - Most Recent: Last Vital Signs Temp 36.1 C 04/20/17 12:00 Pulse 72 04/20/17 12:00 Resp 22 H 04/20/17 12:00 BP 129/79 04/20/17 12:00 Pulse Ox 95 04/20/17 12:00 Weight - Most Recent: 88.082 kg I&O - Last 24 Hours: Intake & Output 04/19/17 04/20/17 04/20/17 22:59 06:59 14:59 Intake Total 129 2000 Output Total 0 950 Balance 129 1050 Lab Results Last 24 Hours: Laboratory Results - last 24 hr 04/19/17 04/19/17 04/19/17 Range/Units 14:22 14:31 20:13 WBC (4.0-11.0) K/uL RBC (4.50-5.90) M/uL Hct (38.0-50.0) % RDW Std Deviation (28.0-62.0) fl RDW Coeff of Jessica (11.0-15.0) % Plt Count (150-400) K/uL MPV (7.40-12.00) fL Neut % (Auto) (48.0-80.0) % Lymph % (Auto) (16.0-40.0) % [place] % (Auto) (0.0-15.0) % Eos % (Auto) (0.0-7.0) % Baso % (Auto) (0.0-1.5) % Neut # (Auto) (1.4-5.7) K/uL Lymph # (Auto) (0.6-2.4) K/uL [place] # (Auto) (0.0-0.8) K/uL Eos # (Auto) (0.0-0.7) K/uL Baso # (Auto) (0.0-0.1) K/uL Nucleated RBC % /100WBC Nucleated RBCs # K/uL Sodium (136-146) mmol/L Potassium (3.5-5.1) mmol/L Chloride (98-110) mmol/L Carbon Dioxide (21-31) mmol/L BUN (6.0-23.0) mg/dL Creatinine (0.6-1.5) mg/dL Est Cr Clr Drug Dosing mL/min Estimated GFR (MDRD) ml/min Glucose (60-110) mg/dL POC Glucose 227 H 160 H (60-110) mg/dL Calcium (8.8-10.8) mg/dL Phosphorus 2.5 (2.4-4.7) mg/dL Magnesium 3.0 H (1.5-2.3) mEq/L Total Bilirubin (0.1-1.5) mg/dL AST (5-40) IU/L ALT (8-54) IU/L Alkaline Phosphatase (40-150) Total Protein (6.0-8.0) g/dL Albumin (3.5-5.0) g/dL Globulin (2.0-3.5) g/dL Albumin/Globulin Ratio (1.3-2.8) Triglycerides (10-190) mg/dL Cholesterol (131-240) mg/dL VLDL Cholesterol (5-55) mg/dL HDL Cholesterol (40-80) mg/dL Cholesterol/HDL Ratio (3.3-6.0) 04/20/17 04/20/17 04/20/17 Range/Units 01:55 04:52 04:52 WBC 3.66 L (4.0-11.0) K/uL RBC 4.68 (4.50-5.90) M/uL Hct 41.3 (38.0-50.0) % RDW Std Deviation 42.2 (28.0-62.0) fl RDW Coeff of Jessica 13 (11.0-15.0) % Plt Count 199 (150-400) K/uL MPV 12.20 H (7.40-12.00) fL Neut % (Auto) 43.2 L (48.0-80.0) % Lymph % (Auto) 42.1 H (16.0-40.0) % [place] % (Auto) 9.0 (0.0-15.0) % Eos % (Auto) 4.9 (0.0-7.0) % Baso % (Auto) 0.8 (0.0-1.5) % Neut # (Auto) 1.6 (1.4-5.7) K/uL Lymph # (Auto) 1.5 (0.6-2.4) K/uL [place] # (Auto) 0.3 (0.0-0.8) K/uL Eos # (Auto) 0.2 (0.0-0.7) K/uL Baso # (Auto) 0.0 (0.0-0.1) K/uL Nucleated RBC % 0.0 /100WBC Nucleated RBCs # 0 K/uL Sodium 134 L (136-146) mmol/L Potassium 4.7 (3.5-5.1) mmol/L Chloride 104 (98-110) mmol/L Carbon Dioxide 20 L (21-31) mmol/L BUN 10 (6.0-23.0) mg/dL Creatinine 0.8 (0.6-1.5) mg/dL Est Cr Clr Drug Dosing 101.43 mL/min Estimated GFR (MDRD) > 60.0 ml/min Glucose 206 H (60-110) mg/dL POC Glucose 156 H (60-110) mg/dL Calcium 8.9 (8.8-10.8) mg/dL Phosphorus (2.4-4.7) mg/dL Magnesium (1.5-2.3) mEq/L Total Bilirubin 0.3 (0.1-1.5) mg/dL AST 48 H (5-40) IU/L ALT 43 (8-54) IU/L Alkaline Phosphatase 60 (40-150) Total Protein 7.6 (6.0-8.0) g/dL Albumin 3.9 (3.5-5.0) g/dL Globulin 3.7 H (2.0-3.5) g/dL Albumin/Globulin Ratio 1.1 L (1.3-2.8) Triglycerides (10-190) mg/dL Cholesterol (131-240) mg/dL VLDL Cholesterol (5-55) mg/dL HDL Cholesterol (40-80) mg/dL Cholesterol/HDL Ratio (3.3-6.0) 04/20/17 Range/Units 04:52 WBC (4.0-11.0) K/uL RBC (4.50-5.90) M/uL Hct (38.0-50.0) % RDW Std Deviation (28.0-62.0) fl RDW Coeff of Jessica (11.0-15.0) % Plt Count (150-400) K/uL MPV (7.40-12.00) fL Neut % (Auto) (48.0-80.0) % Lymph % (Auto) (16.0-40.0) % [place] % (Auto) (0.0-15.0) % Eos % (Auto) (0.0-7.0) % Baso % (Auto) (0.0-1.5) % Neut # (Auto) (1.4-5.7) K/uL Lymph # (Auto) (0.6-2.4) K/uL [place] # (Auto) (0.0-0.8) K/uL Eos # (Auto) (0.0-0.7) K/uL Baso # (Auto) (0.0-0.1) K/uL Nucleated RBC % /100WBC Nucleated RBCs # K/uL Sodium (136-146) mmol/L Potassium (3.5-5.1) mmol/L Chloride (98-110) mmol/L Carbon Dioxide (21-31) mmol/L BUN (6.0-23.0) mg/dL Creatinine (0.6-1.5) mg/dL Est Cr Clr Drug Dosing mL/min Estimated GFR (MDRD) ml/min Glucose (60-110) mg/dL POC Glucose (60-110) mg/dL Calcium (8.8-10.8) mg/dL Phosphorus (2.4-4.7) mg/dL Magnesium (1.5-2.3) mEq/L Total Bilirubin (0.1-1.5) mg/dL AST (5-40) IU/L ALT (8-54) IU/L Alkaline Phosphatase (40-150) Total Protein (6.0-8.0) g/dL Albumin (3.5-5.0) g/dL Globulin (2.0-3.5) g/dL Albumin/Globulin Ratio (1.3-2.8) Triglycerides 3472 H (10-190) mg/dL Cholesterol 408 H (131-240) mg/dL VLDL Cholesterol (5-55) mg/dL HDL Cholesterol 16 L (40-80) mg/dL Cholesterol/HDL Ratio 25.5 H (3.3-6.0) Med Orders - Current: Current Medications Docusate Sodium (Colace) 100 mg PO BID PRN PRN Reason: Constipation Enoxaparin Sodium (Lovenox) 40 mg SUBCUT DAILY [facility] Last Admin: 04/20/17 08:26 Dose: 40 mg Hydromorphone HCl (Dilaudid) 0.5 mg IVPUSH Q2H PRN PRN Reason: Pain (severe 7-10) Last Admin: 04/20/17 12:08 Dose: 0.5 mg Sodium Chloride (Normal Saline) 1,000 mls @ 125 mls/hr IV ASDIRECTED APOLINAR Last Admin: 04/20/17 06:50 Dose: 125 mls/hr Insulin Aspart (Novolog) 0 unit SUBCUT Q6H APOLINAR PRN Reason: Protocol Last Admin: 04/20/17 08:25 Dose: 2 units Ondansetron HCl (Zofran Odt) 4 mg PO Q6H PRN PRN Reason: nausea, able to take PO Last Admin: 04/20/17 08:39 Dose: 4 mg Sodium Chloride (Saline Flush) 10 ml FLUSH ASDIRECTED PRN PRN Reason: Keep Vein Open Sodium Chloride (Saline Flush) 2.5 ml FLUSH ASDIRECTED PRN PRN Reason: Keep Vein Open Temazepam (Restoril) 15 mg PO BEDTIME PRN PRN Reason: Sleep Discontinued Medications Influenza Virus Vaccine (Pharmacy To Dose - Influenza Vaccine) 1 each IM ONETIME ONE Stop: 04/19/17 16:29 Influenza Virus Vaccine (Flulaval Quad [id number]) 60 mcg IM .ONCE ONE Stop: 04/19/17 16:31 Iopamidol (Isovue-370 (76%)) 100 ml IVPUSH ONETIME STA Stop: 04/19/17 15:22 Last Admin: 04/19/17 15:22 Dose: 100 ml - Exam General: Alert, Oriented, Cooperative, Mild Distress, Moderate Distress HEENT: Pupils Equal, Pupils Reactive Neck: Supple, No JVD Lungs: Clear to Auscultation, Normal Respiratory Effort Cardiovascular: Regular Rate, Regular Rhythm GI/Abdominal Exam: Guarding, Tender Extremities: Normal Inspection, No Pedal Edema, Normal Capillary Refill Skin: Warm, Dry, Intact Neurological: No New Focal Deficit Psy/Mental Status: Alert, Normal Affect - Problem List Review Problem List Initiated/Reviewed/Updated: Yes - Plan Plan:: The patient has also exhibited positive pain behaviors. He is tender in the epigastrium and right upper quadrants. Patient has elevations of his triglycerides at 3472 mg/dL. The patient will be admitted as an inpatient for pancreatitis that is evident clinically. CT scan of his abdomen and pelvis a been ordered. The patient's hemoglobin A1c is also a 10.2%. ems educator will be consult. Current studies have recommended the use of IV insulin as the patient's blood sugars greater than 500 mg/dL. Patient's current lunch sugar was at 238 mg/dL. Also plasmapheresis is not recommended for patients with triglycerides less than 5000 mg/dL. Patient will be admitted as an inpatient secondary to clinical pancreatitis. Also he'll be kept nothing by mouth. I've ordered medication for pain control. The patient will be appropriate for discharge once his medical issues are stabilized and he is able to tolerate fluids. The patient will be evaluated and his treatment plan will be adjusted accordingly. Assessment/Plan: 1. Hypertriglyceridemia: NPO. Insulin Moderate Sliding Scale [id number]. IV NS @ 125 ml/hour. monitor 2. Pancreatitis: as per above. Dilaudid for pain control. 3. DM t2: Insulin Moderate sliding scale. consult to DM educator <Luis Fernando Landeros - Last Filed: 04/21/17 11:19> - General Info Admission Dx/Problem (Free Text): I was present with the resident during history and examination. I discussed the case with the resident and agree with the findings and plan as documented in the residents note. - Patient Data Vitals - Most Recent: Last Vital Signs Temp 35.7 C 04/21/17 08:00 Pulse 71 04/21/17 08:00 Resp 20 04/21/17 08:00 BP 162/80 H 04/21/17 08:00 Pulse Ox 95 04/21/17 08:00 I&O - Last 24 Hours: Intake & Output 04/20/17 04/21/17 04/21/17 22:59 06:59 14:59 Intake Total 1959 723 Output Total 1370 1150 Balance 589 -427 Lab Results Last 24 Hours: Laboratory Results - last 24 hr 04/20/17 04/20/17 04/20/17 Range/Units 08:22 14:16 20:16 WBC (4.0-11.0) K/uL RBC (4.50-5.90) M/uL Hgb (13.0-17.0) g/dL Hct (38.0-50.0) % MCV (80.0-98.0) fL MCH (27.0-32.0) pg MCHC (31.0-37.0) g/dL RDW Std Deviation (28.0-62.0) fl RDW Coeff of Jessica (11.0-15.0) % Plt Count (150-400) K/uL MPV (7.40-12.00) fL Neut % (Auto) (48.0-80.0) % Lymph % (Auto) (16.0-40.0) % [place] % (Auto) (0.0-15.0) % Eos % (Auto) (0.0-7.0) % Baso % (Auto) (0.0-1.5) % Neut # (Auto) (1.4-5.7) K/uL Lymph # (Auto) (0.6-2.4) K/uL [place] # (Auto) (0.0-0.8) K/uL Eos # (Auto) (0.0-0.7) K/uL Baso # (Auto) (0.0-0.1) K/uL Nucleated RBC % /100WBC Nucleated RBCs # K/uL Sodium (136-146) mmol/L Potassium (3.5-5.1) mmol/L Chloride (98-110) mmol/L Carbon Dioxide (21-31) mmol/L BUN (6.0-23.0) mg/dL Creatinine (0.6-1.5) mg/dL Est Cr Clr Drug Dosing mL/min Estimated GFR (MDRD) ml/min Glucose (60-110) mg/dL POC Glucose 176 H 134 H 156 H (60-110) mg/dL Calcium (8.8-10.8) mg/dL Total Bilirubin (0.1-1.5) mg/dL AST (5-40) IU/L ALT (8-54) IU/L Alkaline Phosphatase (40-150) Total Protein (6.0-8.0) g/dL Albumin (3.5-5.0) g/dL Globulin (2.0-3.5) g/dL Albumin/Globulin Ratio (1.3-2.8) Triglycerides (10-190) mg/dL Cholesterol (131-240) mg/dL HDL Cholesterol (40-80) mg/dL Cholesterol/HDL Ratio (3.3-6.0) 04/21/17 04/21/17 Range/Units 05:20 05:20 WBC 3.88 L (4.0-11.0) K/uL RBC 4.72 (4.50-5.90) M/uL Hgb 15.3 (13.0-17.0) g/dL Hct 41.3 (38.0-50.0) % MCV 87.5 (80.0-98.0) fL MCH 32.4 H (27.0-32.0) pg MCHC 37.0 (31.0-37.0) g/dL RDW Std Deviation 42.1 (28.0-62.0) fl RDW Coeff of Jsesica 13 (11.0-15.0) % Plt Count 186 (150-400) K/uL MPV 11.80 (7.40-12.00) fL Neut % (Auto) 37.6 L (48.0-80.0) % Lymph % (Auto) 48.5 H (16.0-40.0) % [place] % (Auto) 7.5 (0.0-15.0) % Eos % (Auto) 5.4 (0.0-7.0) % Baso % (Auto) 1.0 (0.0-1.5) % Neut # (Auto) 1.5 (1.4-5.7) K/uL Lymph # (Auto) 1.9 (0.6-2.4) K/uL [place] # (Auto) 0.3 (0.0-0.8) K/uL Eos # (Auto) 0.2 (0.0-0.7) K/uL Baso # (Auto) 0.0 (0.0-0.1) K/uL Nucleated RBC % 0.0 /100WBC Nucleated RBCs # 0 K/uL Sodium 135 L (136-146) mmol/L Potassium 4.3 (3.5-5.1) mmol/L Chloride 105 (98-110) mmol/L Carbon Dioxide 21 (21-31) mmol/L BUN 9 (6.0-23.0) mg/dL Creatinine 0.7 (0.6-1.5) mg/dL Est Cr Clr Drug Dosing 115.92 mL/min Estimated GFR (MDRD) > 60.0 ml/min Glucose 195 H (60-110) mg/dL POC Glucose (60-110) mg/dL Calcium 9.0 (8.8-10.8) mg/dL Total Bilirubin 0.3 (0.1-1.5) mg/dL AST 40 (5-40) IU/L ALT 46 (8-54) IU/L Alkaline Phosphatase 58 (40-150) Total Protein 7.3 (6.0-8.0) g/dL Albumin 3.7 (3.5-5.0) g/dL Globulin 3.6 H (2.0-3.5) g/dL Albumin/Globulin Ratio 1.0 L (1.3-2.8) Triglycerides 1524 H (10-190) mg/dL Cholesterol 294 H (131-240) mg/dL HDL Cholesterol 16 L (40-80) mg/dL Cholesterol/HDL Ratio 18.4 H (3.3-6.0) Med Orders - Current: Current Medications Docusate Sodium (Colace) 100 mg PO BID PRN PRN Reason: Constipation Enoxaparin Sodium (Lovenox) 40 mg SUBCUT DAILY [facility] Last Admin: 04/21/17 08:56 Dose: 40 mg Hydromorphone HCl (Dilaudid) 0.5 mg IVPUSH Q4H PRN PRN Reason: Pain (severe 7-10) Last Admin: 04/21/17 08:57 Dose: 0.5 mg Sodium Chloride (Normal Saline) 1,000 mls @ 125 mls/hr IV ASDIRECTED APOLINAR Last Admin: 04/21/17 06:47 Dose: 125 mls/hr Insulin Aspart (Novolog) 0 unit SUBCUT Q6H APOLINAR PRN Reason: Protocol Last Admin: 04/21/17 09:05 Dose: Not Given Ondansetron HCl (Zofran Odt) 4 mg PO Q6H PRN PRN Reason: nausea, able to take PO Last Admin: 04/20/17 08:39 Dose: 4 mg Sodium Chloride (Saline Flush) 10 ml FLUSH ASDIRECTED PRN PRN Reason: Keep Vein Open Sodium Chloride (Saline Flush) 2.5 ml FLUSH ASDIRECTED PRN PRN Reason: Keep Vein Open Temazepam (Restoril) 15 mg PO BEDTIME PRN PRN Reason: Sleep Discontinued Medications Hydromorphone HCl (Dilaudid) 0.5 mg IVPUSH Q2H PRN PRN Reason: Pain (severe 7-10) Last Admin: 04/21/17 06:48 Dose: 0.5 mg Influenza Virus Vaccine (Pharmacy To Dose - Influenza Vaccine) 1 each IM ONETIME ONE Stop: 04/19/17 16:29 Influenza Virus Vaccine (Flulaval Quad [id number]) 60 mcg IM .ONCE ONE Stop: 04/19/17 16:31 Iopamidol (Isovue-370 (76%)) 100 ml IVPUSH ONETIME STA Stop: 04/19/17 15:22 Last Admin: 04/19/17 15:22 Dose: 100 ml - Problem List & Annotations (1) Pancreatitis SNOMED Code(s): 07330479 Code(s): K85.90 - ACUTE PANCREATITIS WITHOUT NECROSIS OR INFECTION, UNSP Status: Acute Priority: High Current Visit: Yes Qualifiers: Chronicity: acute Pancreatitis type: unspecified pancreatitis type Acute pancreatitis complication: no infection or necrosis Qualified Code(s): K85.90 - Acute pancreatitis without necrosis or infection, unspecified (2) Hypertriglyceridemia SNOMED Code(s): 147347714 Code(s): E78.1 - PURE HYPERGLYCERIDEMIA Status: Chronic Priority: High Current Visit: Yes
[2017-04-21] MEDS: HYDROmorphone 1 MG/ML Syringe IVPUSH PRN ×3 (00:59→06:48)
[2017-04-21] MEDS: Insulin Aspart 100 Units/ML 3 ML Pen SUBCUT SCH ×2 (02:24→09:05)
[2017-04-21 06:33] LABS: CHLORIDE,CL 105 mmol/L (98-110); SODIUM,NA 135 mmol/L (136-146)
[2017-04-21] MEDS: Sodium Chloride 0.9% 1,000 ML IV SCH (06:47)
[2017-04-21] MEDS ORDERED: HYDROmorphone 1 MG/ML Syringe IVPUSH PRN (08:44)
[2017-04-21] MEDS: Enoxaparin 40 MG/0.4 ML Syringe SUBCUT SCH (08:56)
[2017-04-21 12:12] VITALS: BP 128/88
--- NOTE | 2017-04-21 12:20 | PCM.DCSUM1 ---
<Baluch,Landry - Last Filed: 04/21/17 12:15> Discharge Summary - Hospital Course Free Text/Narrative:: Patient admitted with hypertriglyceridemia. TG levels improved from 3472 to 1524 overnight. Informed patient that we are hopeful his TG level will be low enough for discharge home tomorrow. According to nursing staff patient had been resting comfortably and appeared to not be in any distress. Therefore I informed patient that in preparation of discharge tomorrow we would have to decrease the interval of his IV pain medication to wean him off as he will not have access to it at home. Patient became upset and informed me that if he does not get his pain medication every 2 hours then he would like to leave the hospital. I informed patient that my advice would be he stay until his TG levels are below 500 and that if he would like to leave then it would be against medical advice. I contacted my supervising physician Dr. Landeros and informed the situation and he agreed that patient should stay and if he leaves it would be agianst medical advice. I informed the patient of this and he at first informed me that he would not sign the form but he would leave regardless. He then agreed to sign the AMA form and left the hospital. - Discharge Data Discharge Date: 04/21/17 Discharge Disposition: Against Medical Advice 07 Condition: Fair - Patient Summary/Data Consults: Consultations 04/20/17 08:27 Consult to DM [Consult to Diabetic Nurse Specialist] [CONS] Routine - Discharge Plan Home Medications: Home Meds Benzonatate [Tessalon Perles] 100 mg PO TID PRN #60 cap 11/22/16 [Rx] Gemfibrozil [Lopid] 600 mg PO BIDAC #60 tablet 11/22/16 [Rx] Insulin Aspart [NovoLOG] See Protocol SUBCUT TIDAC #2 pen 11/22/16 [Rx] Insulin Glarg,Human.Rec.Analog [LantUS Solostar] 15 units SUBCUT BEDTIME #1 pen 11/22/16 [Rx] oxyCODONE 10 mg PO Q6H PRN #15 tablet 11/22/16 [Rx] Patient Handouts: Food Choices to Lower Your Triglycerides Referrals: Luis Fernando Landeros DO [Primary Care Provider] - 05/07/17 11:30 am - Patient Data Vitals - Most Recent: Last Vital Signs Temp 36.2 C 04/21/17 12:11 Pulse 79 04/21/17 12:11 Resp 20 04/21/17 12:11 BP 128/88 04/21/17 12:11 Pulse Ox 97 04/21/17 12:11 Weight - Most Recent: 88.082 kg I&O - Last 24 hours: Intake & Output 04/20/17 04/21/17 04/21/17 22:59 06:59 14:59 Intake Total 1959 723 0 Output Total 1370 1150 350 Balance 589 -427 -350 Lab Results - Last 24 hrs: Laboratory Results - last 24 hr 04/20/17 04/20/17 04/20/17 Range/Units 08:22 14:16 20:16 WBC (4.0-11.0) K/uL RBC (4.50-5.90) M/uL Hgb (13.0-17.0) g/dL Hct (38.0-50.0) % MCV (80.0-98.0) fL MCH (27.0-32.0) pg MCHC (31.0-37.0) g/dL RDW Std Deviation (28.0-62.0) fl RDW Coeff of Jessica (11.0-15.0) % Plt Count (150-400) K/uL MPV (7.40-12.00) fL Neut % (Auto) (48.0-80.0) % Lymph % (Auto) (16.0-40.0) % Elbert % (Auto) (0.0-15.0) % Eos % (Auto) (0.0-7.0) % Baso % (Auto) (0.0-1.5) % Neut # (Auto) (1.4-5.7) K/uL Lymph # (Auto) (0.6-2.4) K/uL Elbert # (Auto) (0.0-0.8) K/uL Eos # (Auto) (0.0-0.7) K/uL Baso # (Auto) (0.0-0.1) K/uL Nucleated RBC % /100WBC Nucleated RBCs # K/uL Sodium (136-146) mmol/L Potassium (3.5-5.1) mmol/L Chloride (98-110) mmol/L Carbon Dioxide (21-31) mmol/L BUN (6.0-23.0) mg/dL Creatinine (0.6-1.5) mg/dL Est Cr Clr Drug Dosing mL/min Estimated GFR (MDRD) ml/min Glucose (60-110) mg/dL POC Glucose 176 H 134 H 156 H (60-110) mg/dL Calcium (8.8-10.8) mg/dL Total Bilirubin (0.1-1.5) mg/dL AST (5-40) IU/L ALT (8-54) IU/L Alkaline Phosphatase (40-150) Total Protein (6.0-8.0) g/dL Albumin (3.5-5.0) g/dL Globulin (2.0-3.5) g/dL Albumin/Globulin Ratio (1.3-2.8) Triglycerides (10-190) mg/dL Cholesterol (131-240) mg/dL HDL Cholesterol (40-80) mg/dL Cholesterol/HDL Ratio (3.3-6.0) 04/21/17 04/21/17 Range/Units 05:20 05:20 WBC 3.88 L (4.0-11.0) K/uL RBC 4.72 (4.50-5.90) M/uL Hgb 15.3 (13.0-17.0) g/dL Hct 41.3 (38.0-50.0) % MCV 87.5 (80.0-98.0) fL MCH 32.4 H (27.0-32.0) pg MCHC 37.0 (31.0-37.0) g/dL RDW Std Deviation 42.1 (28.0-62.0) fl RDW Coeff of Jessica 13 (11.0-15.0) % Plt Count 186 (150-400) K/uL MPV 11.80 (7.40-12.00) fL Neut % (Auto) 37.6 L (48.0-80.0) % Lymph % (Auto) 48.5 H (16.0-40.0) % Elbert % (Auto) 7.5 (0.0-15.0) % Eos % (Auto) 5.4 (0.0-7.0) % Baso % (Auto) 1.0 (0.0-1.5) % Neut # (Auto) 1.5 (1.4-5.7) K/uL Lymph # (Auto) 1.9 (0.6-2.4) K/uL Elbert # (Auto) 0.3 (0.0-0.8) K/uL Eos # (Auto) 0.2 (0.0-0.7) K/uL Baso # (Auto) 0.0 (0.0-0.1) K/uL Nucleated RBC % 0.0 /100WBC Nucleated RBCs # 0 K/uL Sodium 135 L (136-146) mmol/L Potassium 4.3 (3.5-5.1) mmol/L Chloride 105 (98-110) mmol/L Carbon Dioxide 21 (21-31) mmol/L BUN 9 (6.0-23.0) mg/dL Creatinine 0.7 (0.6-1.5) mg/dL Est Cr Clr Drug Dosing 115.92 mL/min Estimated GFR (MDRD) > 60.0 ml/min Glucose 195 H (60-110) mg/dL POC Glucose (60-110) mg/dL Calcium 9.0 (8.8-10.8) mg/dL Total Bilirubin 0.3 (0.1-1.5) mg/dL AST 40 (5-40) IU/L ALT 46 (8-54) IU/L Alkaline Phosphatase 58 (40-150) Total Protein 7.3 (6.0-8.0) g/dL Albumin 3.7 (3.5-5.0) g/dL Globulin 3.6 H (2.0-3.5) g/dL Albumin/Globulin Ratio 1.0 L (1.3-2.8) Triglycerides 1524 H (10-190) mg/dL Cholesterol 294 H (131-240) mg/dL HDL Cholesterol 16 L (40-80) mg/dL Cholesterol/HDL Ratio 18.4 H (3.3-6.0) Med Orders - Current: Current Medications Discontinued Medications Docusate Sodium (Colace) 100 mg PO BID PRN PRN Reason: Constipation Enoxaparin Sodium (Lovenox) 40 mg SUBCUT DAILY [facility] Last Admin: 04/21/17 08:56 Dose: 40 mg Hydromorphone HCl (Dilaudid) 0.5 mg IVPUSH Q2H PRN PRN Reason: Pain (severe 7-10) Last Admin: 04/21/17 06:48 Dose: 0.5 mg Hydromorphone HCl (Dilaudid) 0.5 mg IVPUSH Q4H PRN PRN Reason: Pain (severe 7-10) Last Admin: 04/21/17 08:57 Dose: 0.5 mg Sodium Chloride (Normal Saline) 1,000 mls @ 125 mls/hr IV ASDIRECTED [facility] Last Admin: 04/21/17 06:47 Dose: 125 mls/hr Influenza Virus Vaccine (Pharmacy To Dose - Influenza Vaccine) 1 each IM ONETIME ONE Stop: 04/19/17 16:29 Influenza Virus Vaccine (Flulaval Quad [id number]) 60 mcg IM .ONCE ONE Stop: 04/19/17 16:31 Insulin Aspart (Novolog) 0 unit SUBCUT Q6H [facility] PRN Reason: Protocol Last Admin: 04/21/17 09:05 Dose: Not Given Iopamidol (Isovue-370 (76%)) 100 ml IVPUSH ONETIME STA Stop: 04/19/17 15:22 Last Admin: 04/19/17 15:22 Dose: 100 ml Ondansetron HCl (Zofran Odt) 4 mg PO Q6H PRN PRN Reason: nausea, able to take PO Last Admin: 04/20/17 08:39 Dose: 4 mg Sodium Chloride (Saline Flush) 10 ml FLUSH ASDIRECTED PRN PRN Reason: Keep Vein Open Sodium Chloride (Saline Flush) 2.5 ml FLUSH ASDIRECTED PRN PRN Reason: Keep Vein Open Temazepam (Restoril) 15 mg PO BEDTIME PRN PRN Reason: Sleep *Q Meaningful Use (DIS) - VTE *Q VTE Criteria *Q: - Stroke *Q Stroke Criteria *Q: - AMI *Q AMI Criteria *Q: <Luis Fernando Landeros - Last Filed: 04/21/17 16:19> Discharge Summary - Hospital Course HPI Initial Comments: I was present with the resident during history and examination. I discussed the case with the resident and agree with the findings and plan as documented in the residents note. - Discharge Diagnosis/Problem(s) (1) Pancreatitis SNOMED Code(s): 25390032 ICD Code: K85.90 - ACUTE PANCREATITIS WITHOUT NECROSIS OR INFECTION, UNSP Status: Acute Priority: High Qualifiers: Chronicity: acute Pancreatitis type: unspecified pancreatitis type Acute pancreatitis complication: no infection or necrosis Qualified Code(s): K85.90 - Acute pancreatitis without necrosis or infection, unspecified (2) Hypertriglyceridemia SNOMED Code(s): 152388301 ICD Code: E78.1 - PURE HYPERGLYCERIDEMIA Status: Chronic Priority: High - Patient Summary/Data Consults: Consultations 04/20/17 08:27 Consult to DM [Consult to Diabetic Nurse Specialist] [CONS] Routine - Patient Data Vitals - Most Recent: Last Vital Signs Temp 36.2 C 04/21/17 12:11 Pulse 79 04/21/17 12:11 Resp 20 04/21/17 12:11 BP 128/88 04/21/17 12:11 Pulse Ox 97 04/21/17 12:11 I&O - Last 24 hours: Intake & Output 04/21/17 04/21/17 04/21/17 06:59 14:59 22:59 Intake Total 723 0 Output Total 1150 350 Balance -427 -350 Lab Results - Last 24 hrs: Laboratory Results - last 24 hr 04/20/17 04/20/17 04/20/17 Range/Units 08:22 14:16 20:16 WBC (4.0-11.0) K/uL RBC (4.50-5.90) M/uL Hgb (13.0-17.0) g/dL Hct (38.0-50.0) % MCV (80.0-98.0) fL MCH (27.0-32.0) pg MCHC (31.0-37.0) g/dL RDW Std Deviation (28.0-62.0) fl RDW Coeff of Jessica (11.0-15.0) % Plt Count (150-400) K/uL MPV (7.40-12.00) fL Neut % (Auto) (48.0-80.0) % Lymph % (Auto) (16.0-40.0) % Elbert % (Auto) (0.0-15.0) % Eos % (Auto) (0.0-7.0) % Baso % (Auto) (0.0-1.5) % Neut # (Auto) (1.4-5.7) K/uL Lymph # (Auto) (0.6-2.4) K/uL Elbert # (Auto) (0.0-0.8) K/uL Eos # (Auto) (0.0-0.7) K/uL Baso # (Auto) (0.0-0.1) K/uL Nucleated RBC % /100WBC Nucleated RBCs # K/uL Sodium (136-146) mmol/L Potassium (3.5-5.1) mmol/L Chloride (98-110) mmol/L Carbon Dioxide (21-31) mmol/L BUN (6.0-23.0) mg/dL Creatinine (0.6-1.5) mg/dL Est Cr Clr Drug Dosing mL/min Estimated GFR (MDRD) ml/min Glucose (60-110) mg/dL POC Glucose 176 H 134 H 156 H (60-110) mg/dL Calcium (8.8-10.8) mg/dL Total Bilirubin (0.1-1.5) mg/dL AST (5-40) IU/L ALT (8-54) IU/L Alkaline Phosphatase (40-150) Total Protein (6.0-8.0) g/dL Albumin (3.5-5.0) g/dL Globulin (2.0-3.5) g/dL Albumin/Globulin Ratio (1.3-2.8) Triglycerides (10-190) mg/dL Cholesterol (131-240) mg/dL HDL Cholesterol (40-80) mg/dL Cholesterol/HDL Ratio (3.3-6.0) 04/21/17 04/21/17 Range/Units 05:20 05:20 WBC 3.88 L (4.0-11.0) K/uL RBC 4.72 (4.50-5.90) M/uL Hgb 15.3 (13.0-17.0) g/dL Hct 41.3 (38.0-50.0) % MCV 87.5 (80.0-98.0) fL MCH 32.4 H (27.0-32.0) pg MCHC 37.0 (31.0-37.0) g/dL RDW Std Deviation 42.1 (28.0-62.0) fl RDW Coeff of Jessica 13 (11.0-15.0) % Plt Count 186 (150-400) K/uL MPV 11.80 (7.40-12.00) fL Neut % (Auto) 37.6 L (48.0-80.0) % Lymph % (Auto) 48.5 H (16.0-40.0) % Elbert % (Auto) 7.5 (0.0-15.0) % Eos % (Auto) 5.4 (0.0-7.0) % Baso % (Auto) 1.0 (0.0-1.5) % Neut # (Auto) 1.5 (1.4-5.7) K/uL Lymph # (Auto) 1.9 (0.6-2.4) K/uL Elbert # (Auto) 0.3 (0.0-0.8) K/uL Eos # (Auto) 0.2 (0.0-0.7) K/uL Baso # (Auto) 0.0 (0.0-0.1) K/uL Nucleated RBC % 0.0 /100WBC Nucleated RBCs # 0 K/uL Sodium 135 L (136-146) mmol/L Potassium 4.3 (3.5-5.1) mmol/L Chloride 105 (98-110) mmol/L Carbon Dioxide 21 (21-31) mmol/L BUN 9 (6.0-23.0) mg/dL Creatinine 0.7 (0.6-1.5) mg/dL Est Cr Clr Drug Dosing 115.92 mL/min Estimated GFR (MDRD) > 60.0 ml/min Glucose 195 H (60-110) mg/dL POC Glucose (60-110) mg/dL Calcium 9.0 (8.8-10.8) mg/dL Total Bilirubin 0.3 (0.1-1.5) mg/dL AST 40 (5-40) IU/L ALT 46 (8-54) IU/L Alkaline Phosphatase 58 (40-150) Total Protein 7.3 (6.0-8.0) g/dL Albumin 3.7 (3.5-5.0) g/dL Globulin 3.6 H (2.0-3.5) g/dL Albumin/Globulin Ratio 1.0 L (1.3-2.8) Triglycerides 1524 H (10-190) mg/dL Cholesterol 294 H (131-240) mg/dL HDL Cholesterol 16 L (40-80) mg/dL Cholesterol/HDL Ratio 18.4 H (3.3-6.0) Med Orders - Current: Current Medications Discontinued Medications Docusate Sodium (Colace) 100 mg PO BID PRN PRN Reason: Constipation Enoxaparin Sodium (Lovenox) 40 mg SUBCUT DAILY [facility] Last Admin: 04/21/17 08:56 Dose: 40 mg Hydromorphone HCl (Dilaudid) 0.5 mg IVPUSH Q2H PRN PRN Reason: Pain (severe 7-10) Last Admin: 04/21/17 06:48 Dose: 0.5 mg Hydromorphone HCl (Dilaudid) 0.5 mg IVPUSH Q4H PRN PRN Reason: Pain (severe 7-10) Last Admin: 04/21/17 08:57 Dose: 0.5 mg Sodium Chloride (Normal Saline) 1,000 mls @ 125 mls/hr IV ASDIRECTED [facility] Last Admin: 04/21/17 06:47 Dose: 125 mls/hr Influenza Virus Vaccine (Pharmacy To Dose - Influenza Vaccine) 1 each IM ONETIME ONE Stop: 04/19/17 16:29 Influenza Virus Vaccine (Flulaval Quad [id number]) 60 mcg IM .ONCE ONE Stop: 04/19/17 16:31 Insulin Aspart (Novolog) 0 unit SUBCUT Q6H [facility] PRN Reason: Protocol Last Admin: 04/21/17 09:05 Dose: Not Given Iopamidol (Isovue-370 (76%)) 100 ml IVPUSH ONETIME STA Stop: 04/19/17 15:22 Last Admin: 04/19/17 15:22 Dose: 100 ml Ondansetron HCl (Zofran Odt) 4 mg PO Q6H PRN PRN Reason: nausea, able to take PO Last Admin: 04/20/17 08:39 Dose: 4 mg Sodium Chloride (Saline Flush) 10 ml FLUSH ASDIRECTED PRN PRN Reason: Keep Vein Open Sodium Chloride (Saline Flush) 2.5 ml FLUSH ASDIRECTED PRN PRN Reason: Keep Vein Open Temazepam (Restoril) 15 mg PO BEDTIME PRN PRN Reason: Sleep *Q Meaningful Use (DIS) - VTE *Q VTE Criteria *Q: - Stroke *Q Stroke Criteria *Q: - AMI *Q AMI Criteria *Q:
== END 2017-04-21 11:50 | disposition left against medical advice (07) | DRG 642 ==
LOC: MW.MS 13:53 → UNDOADMIN 13:53 → MW.MS 13:58
PROVIDERS: ADMIT Internal Medicine; ATTEND Internal Medicine
DX: E78.1 Pure hyperglyceridemia (principal); K85.90 Acute pancreatitis without necrosis or infection, unspecified; E11.9 Type 2 diabetes mellitus without complications; E78.00 Pure hypercholesterolemia, unspecified; I10 Essential (primary) hypertension; Z79.899 Other long term (current) drug therapy; Z79.4 Long term (current) use of insulin
CPT/HCPCS: 36415; 74177; 74177-26; 80053; 80061; 82962; 83735; 84100; 85025; A9270-GY; J1170; J1650; J1815-GY; J7040; Q9967

== ENCOUNTER 2017-06-14 16:02 | Inpatient (IN) | payer SELFPAY ==
[2017-06-14] MEDS ORDERED: Sodium Chloride 0.9% 2.5 ML Syringe FLUSH PRN (16:11)
[2017-06-14] MEDS ORDERED: Sodium Chloride 0.9% 1,000 ML IV SCH (16:15)
--- NOTE | 2017-06-14 16:36 | PCM.HP ---
H&P History of Present Illness - General Date of Service: 06/14/17 Admit Problem/Dx: Admission Diagnosis/Problem Admission Diagnosis/Problem Abdominal pain - History of Present Illness Initial Comments - Free Text/Narative: 46 yo male with history of DM type 1 and familial hypertriglyerdemia admitted from clinic for acute pancreatitis. The pain started 2 days ago around episgastrium which radiates to his back. He did not eat anything unusual or travelled anywhere. He is complaint with his medications. His blood sugars for the past week has been in 100-130's but 2 weeks ago they were high around 300' s. He does not chest pain, nausea, vomitting. He does have loss non bloody stools for the past 2 days. He was recently admitted for similar problem in april 2017. Abdomen Pain Score (Numeric/FACES): 10 - Related Data Allergies/Adverse Reactions: Allergies Allergy/AdvReac Type Severity Reaction Status Date / Time No Known Allergies Allergy Verified 11/16/16 13:46 Home Medications: Home Meds Benzonatate [Tessalon Perles] 100 mg PO TID PRN #60 cap 11/22/16 [Rx] Gemfibrozil [Lopid] 600 mg PO BIDAC #60 tablet 11/22/16 [Rx] Insulin Aspart [NovoLOG] See Protocol SUBCUT TIDAC #2 pen 11/22/16 [Rx] Insulin Glarg,Human.Rec.Analog [LantUS Solostar] 15 units SUBCUT BEDTIME #1 pen 11/22/16 [Rx] oxyCODONE 10 mg PO Q6H PRN #15 tablet 11/22/16 [Rx] Past Medical History HEENT History: Reports: Impaired Vision, Other (See Below) Other HEENT History: wears eyeglasses Cardiovascular History: Reports: High Cholesterol, Hypertension Respiratory History: Reports: None Gastrointestinal History: Reports: Pancreatitis Other Gastrointestinal History: dx with pancreatitis 6 years ago. Genitourinary History: Reports: None Musculoskeletal History: Reports: Back Pain, Chronic, Other (See Below) Other Musculoskeletal History: Sees a pain specialist in [place] for back shoulder pain Neurological History: Reports: None Psychiatric History: Reports: None Endocrine/Metabolic History: Reports: Diabetes, Type II Hematologic History: Reports: None Immunologic History: Reports: None Oncologic (Cancer) History: Reports: None - Past Surgical History Musculoskeletal Surgical History: Reports: None Social & Family History - Family History Family Medical History: Unobtainable HEENT: Reports: Impaired Vision Cardiac: Reports: CAD, [place] OBGYN: Reports: Musculoskeletal: Reports: Arthritis, Back pain, Chronic Endocrine/Metabolic: Reports: Diabetes, type II - Tobacco Use Smoking Status *Q: Never Smoker Years of Tobacco use: 2 Packs/Tins Daily: 0.5 Used Tobacco, but Quit: Yes Month Tobacco Last Used: 01/2015 Second Hand Smoke Exposure: No - Caffeine Use Caffeine Use: Reports: Soda - Alcohol Use Days Per Week of Alcohol Use: 2 Number of Drinks Per Day: 6 Total Drinks Per Week: 12 - Recreational Drug Use Recreational Drug Use: No H&P Review of Systems - Review of Systems: Review Of Systems: See Below General: Reports: No Symptoms HEENT: Reports: No Symptoms Pulmonary: Reports: No Symptoms Cardiovascular: Reports: No Symptoms Gastrointestinal: Reports: Abdominal Pain, Other (episgastric pain) Musculoskeletal: Reports: No Symptoms Skin: Reports: No Symptoms Psychiatric: Reports: No Symptoms Neurological: Reports: No Symptoms Hematologic/Lymphatic: Reports: No Symptoms Immunologic: Reports: No Symptoms Exam - Exam Exam: See Below - Vital Signs Weight: 88.2 kg - Exam General: Alert, Oriented HEENT: Conjunctiva Clear, EOMI Neck: Supple, Trachea Midline Lungs: Clear to Auscultation, Normal Respiratory Effort Cardiovascular: Regular Rate, Regular Rhythm GI/Abdominal Exam: Normal Bowel Sounds, Distended, Tender. No: Guarding Back Exam: Normal Inspection Extremities: Normal Inspection - Patient Data Result Diagrams: 06/14/17 16:22 06/14/17 16:22 *Q Meaningful Use (ADM) - VTE *Q VTE Criteria *Q: - Stroke *Q Stroke Criteria *Q: - AMI *Q AMI Criteria *Q: Problem List Initiated/Reviewed/Updated: Yes Orders Last 24hrs: Active Orders 24 hr Category Date Time Status Patient Status [ADT] Routine ADT 06/14/17 16:11 Active Blood Glucose Check, Bedside [RC] Q1H Care 06/14/17 16:11 Active Height and Weight [RC] DAILY Care 06/14/17 16:11 Active Intake and Output [RC] QSHIFT Care 06/14/17 16:12 Active Oxygen Therapy [RC] PRN Care 06/14/17 16:11 Active Up ad Ruba [RC] ASDIRECTED Care 06/14/17 16:11 Active VTE/DVT Education [RC] PER UNIT ROUTINE Care 06/14/17 16:11 Active Vital Signs [RC] Q4H Care 06/14/17 16:11 Active Nothing Per Oral Diet [DIET] Diet 06/15/17 Breakfast Active Abdomen Pelvis wo Cont [CT] Stat Exams 06/14/17 16:11 Ordered AMYLASE [CHEM] Stat Lab 06/14/17 16:22 Received CBC WITH AUTO DIFF [HEME] Stat Lab 06/14/17 16:22 Received COMPREHENSIVE METABOLIC PN,CMP [CHEM] Stat Lab 06/14/17 16:22 Received GLUCOSE,POC [POC] Routine Lab 06/14/17 16:30 Received LIPASE [CHEM] Stat Lab 06/14/17 16:22 Received LIPID PANEL [CHEM] Stat Lab 06/14/17 16:22 Received Enoxaparin [Lovenox] Med 06/14/17 16:15 Ordered 40 mg SUBCUT DAILY HYDROmorphone/Normal Saline [Dilaudid [employer] 6 MG in NS 30 Med 06/14/17 16:30 Ordered ML] 6 mg IV ASDIRECTED Pantoprazole [ProTONIX IV] Med 06/14/17 21:00 Ordered 40 mg IV Q12HR Sodium Chloride 0.9% [Normal Saline] 1,000 ml Med 06/14/17 16:15 Ordered IV .BOLUS Sodium Chloride 0.9% [Normal Saline] 1,000 ml Med 06/14/17 16:15 Ordered IV ASDIRECTED Sodium Chloride 0.9% [Saline Flush] Med 06/14/17 16:11 Ordered 2.5 ml FLUSH ASDIRECTED PRN Saline Lock Insert [OM.PC] Routine Oth 06/14/17 16:11 Ordered Resuscitation Status Routine Resus Stat 06/14/17 16:11 Ordered Medication Orders Enoxaparin Sodium (Lovenox) 40 mg SUBCUT DAILY [facility] Hydromorphone HCl (Dilaudid Rheumatology Nurse 6 Mg In Ns 30 Ml) 6 mg IV ASDIRECTED [facility] PRN Reason: Protocol Sodium Chloride (Normal Saline) 1,000 mls @ 200 mls/hr IV ASDIRECTED [facility] Sodium Chloride (Normal Saline) 1,000 mls @ 999 mls/hr IV .BOLUS [facility] Pantoprazole Sodium (Protonix Iv) 40 mg IV Q12HR [facility] Sodium Chloride (Saline Flush) 2.5 ml FLUSH ASDIRECTED PRN PRN Reason: Keep Vein Open Assessment/Plan Comment:: Hypertriglycerdemia pancreatitis NPO cbc, cmp, lipid panel, lipase, amylase, abdominal CT Pain Control: [employer] pump T: start insulin drip at 2 ml / hr along with D5W at 25 ml/hr ( blood glucose 170) acuchecks q 1hr. once TG less than 500. discontinue Insulin drip. Recheck TG in AM.
[2017-06-14] MEDS: HYDROmorphone/Normal Saline 6 MG/30 ML PCA Vial IV SCH (16:46)
[2017-06-14] MEDS: Sodium Chloride 0.9% 1,000 ML IV SCH ×2 (16:49→17:54)
[2017-06-14] MEDS ORDERED: FLU Vacc QS 2017-18 (36mos UP)/PF 60 MCG/0.5 ML Syringe IM ONE (17:00)
[2017-06-14 17:06] LABS: CHLORIDE,CL 102 mmol/L (98-110); SODIUM,NA 136 mmol/L (136-146)
[2017-06-14] MEDS: Enoxaparin 40 MG/0.4 ML Syringe SUBCUT SCH (17:24)
--- NOTE | 2017-06-14 18:33 | PCM.SN ---
- Free Text/Narrative Note: Spoke to EICU physician. He recommended to start insulin drip at 5 units/hr and D5W at 75 ml/hr. will check k q 4 hours. He is also recieving NS at 200 ml/hr. acucheck q 1 hours. will recheck TG, lipase, amylase in AM.
[2017-06-14] MEDS: Dextrose 5% in Water 1,000 ML IV SCH (18:58)
[2017-06-14 20:35] LABS: CHLORIDE,CL 108 mmol/L (98-110); SODIUM,NA 139 mmol/L (136-146)
[2017-06-14] MEDS: Pantoprazole 40 MG Vial IV SCH (21:03)
[2017-06-14] MEDS: Gemfibrozil 600 MG Tab PO SCH (21:46)
[2017-06-14] MEDS: Benzonatate 100 MG Cap PO PRN (21:46)
[2017-06-14] MEDS ORDERED: Potassium Chloride 10% 20 MEQ/15 ML Soln 30 ML UD Cup PO ONE (22:21)
[2017-06-14] MEDS ORDERED: Potassium Chloride 20 MEQ Tab.ER PO ONE (23:13)
[2017-06-15] MEDS: Sodium Chloride 0.9% 1,000 ML IV SCH ×5 (00:05→21:11)
[2017-06-15 00:58] LABS: CHLORIDE,CL 108 mmol/L (98-110); SODIUM,NA 139 mmol/L (136-146)
[2017-06-15] MEDS: HYDROmorphone/Normal Saline 6 MG/30 ML PCA Vial IV SCH ×2 (01:47→13:01)
[2017-06-15 04:38] LABS: CHLORIDE,CL 109 mmol/L (98-110); SODIUM,NA 137 mmol/L (136-146)
[2017-06-15] MEDS ORDERED: HYDROmorphone 1 MG/ML Syringe IVPUSH ONE (05:45)
[2017-06-15] MEDS: Gemfibrozil 600 MG Tab PO SCH ×2 (06:33→16:29)
[2017-06-15] MEDS: Pantoprazole 40 MG Vial IV SCH ×2 (08:03→20:19)
--- NOTE | 2017-06-15 08:23 | PCM.PN ---
<Stefanie Jon - Last Filed: 06/15/17 08:23> - General Info Date of Service: 06/15/17 Subjective Update: pain 01/22. Did not pass gas last night. NO BM today. He is tolerating low fat and low carb diet. Functional Status: Reports: Tolerating Diet, Ambulating, Urinating, Incentive Spirometry - Review of Systems General: Reports: No Symptoms HEENT: Reports: No Symptoms Pulmonary: Reports: No Symptoms Cardiovascular: Reports: No Symptoms Gastrointestinal: Reports: Abdominal Pain (slightly improving). Denies: Fl[place] Musculoskeletal: Reports: No Symptoms Skin: Reports: No Symptoms Neurological: Reports: No Symptoms Psychiatric: Reports: No Symptoms - Patient Data Vitals - Most Recent: Last Vital Signs Temp 97.5 F 06/15/17 04:00 Pulse 98 06/14/17 16:11 Resp 14 06/15/17 07:00 BP 121/71 06/15/17 07:00 Pulse Ox 97 06/15/17 07:00 Weight - Most Recent: 89.2 kg I&O - Last 24 Hours: Intake & Output 06/14/17 06/15/17 06/15/17 22:59 06:59 14:59 Intake Total 4960 Output Total 2500 Balance 2460 Lab Results Last 24 Hours: Laboratory Results - last 24 hr 06/14/17 06/14/17 06/14/17 Range/Units 16:22 16:22 16:30 WBC 6.66 (4.0-11.0) K/uL RBC 4.67 (4.50-5.90) M/uL Hgb 15.1 (13.0-17.0) g/dL Hct 41.2 (38.0-50.0) % MCV 88.2 (80.0-98.0) fL MCH 32.3 H (27.0-32.0) pg MCHC 36.7 (31.0-37.0) g/dL RDW Std Deviation 43.2 (28.0-62.0) fl RDW Coeff of Jessica 13 (11.0-15.0) % Plt Count 191 (150-400) K/uL MPV 11.50 (7.40-12.00) fL Neut % (Auto) 72.2 (48.0-80.0) % Lymph % (Auto) 19.4 (16.0-40.0) % [place] % (Auto) 5.4 (0.0-15.0) % Eos % (Auto) 2.7 (0.0-7.0) % Baso % (Auto) 0.3 (0.0-1.5) % Neut # (Auto) 4.8 (1.4-5.7) K/uL Lymph # (Auto) 1.3 (0.6-2.4) K/uL [place] # (Auto) 0.4 (0.0-0.8) K/uL Eos # (Auto) 0.2 (0.0-0.7) K/uL Baso # (Auto) 0.0 (0.0-0.1) K/uL Nucleated RBC % 0.0 /100WBC Nucleated RBCs # 0 K/uL Sodium 136 (136-146) mmol/L Potassium 4.1 (3.5-5.1) mmol/L Chloride 102 (98-110) mmol/L Carbon Dioxide 24 (21-31) mmol/L BUN 11 (6.0-23.0) mg/dL Creatinine 0.7 (0.6-1.5) mg/dL Est Cr Clr Drug Dosing 120.26 mL/min Estimated GFR (MDRD) > 60.0 ml/min Glucose 170 H (60-110) mg/dL POC Glucose 160 H (60-110) mg/dL Calcium 9.3 (8.8-10.8) mg/dL Total Bilirubin 0.6 (0.1-1.5) mg/dL AST 30 (5-40) IU/L ALT 32 (8-54) IU/L Alkaline Phosphatase 71 (40-150) Total Protein 8.6 H (6.0-8.0) g/dL Albumin 4.2 (3.5-5.0) g/dL Globulin 4.4 H (2.0-3.5) g/dL Albumin/Globulin Ratio 1.0 L (1.3-2.8) Triglycerides 975 H (10-190) mg/dL Cholesterol 263 H (131-240) mg/dL HDL Cholesterol 20 L (40-80) mg/dL Cholesterol/HDL Ratio 13.2 H (3.3-6.0) Amylase 48 (10-90) U/L Lipase 45 (7-80) U/L 06/14/17 06/14/17 06/14/17 Range/Units 18:22 19:39 20:01 WBC (4.0-11.0) K/uL RBC (4.50-5.90) M/uL Hgb (13.0-17.0) g/dL Hct (38.0-50.0) % MCV (80.0-98.0) fL MCH (27.0-32.0) pg MCHC (31.0-37.0) g/dL RDW Std Deviation (28.0-62.0) fl RDW Coeff of Jessica (11.0-15.0) % Plt Count (150-400) K/uL MPV (7.40-12.00) fL Neut % (Auto) (48.0-80.0) % Lymph % (Auto) (16.0-40.0) % [place] % (Auto) (0.0-15.0) % Eos % (Auto) (0.0-7.0) % Baso % (Auto) (0.0-1.5) % Neut # (Auto) (1.4-5.7) K/uL Lymph # (Auto) (0.6-2.4) K/uL [place] # (Auto) (0.0-0.8) K/uL Eos # (Auto) (0.0-0.7) K/uL Baso # (Auto) (0.0-0.1) K/uL Nucleated RBC % /100WBC Nucleated RBCs # K/uL Sodium 139 (136-146) mmol/L Potassium 3.3 L (3.5-5.1) mmol/L Chloride 108 (98-110) mmol/L Carbon Dioxide 21 (21-31) mmol/L BUN 8 (6.0-23.0) mg/dL Creatinine 0.7 (0.6-1.5) mg/dL Est Cr Clr Drug Dosing 120.26 mL/min Estimated GFR (MDRD) > 60.0 ml/min Glucose 71 (60-110) mg/dL POC Glucose 96 85 (60-110) mg/dL Calcium 8.2 L (8.8-10.8) mg/dL Total Bilirubin (0.1-1.5) mg/dL AST (5-40) IU/L ALT (8-54) IU/L Alkaline Phosphatase (40-150) Total Protein (6.0-8.0) g/dL Albumin (3.5-5.0) g/dL Globulin (2.0-3.5) g/dL Albumin/Globulin Ratio (1.3-2.8) Triglycerides (10-190) mg/dL Cholesterol (131-240) mg/dL HDL Cholesterol (40-80) mg/dL Cholesterol/HDL Ratio (3.3-6.0) Amylase (10-90) U/L Lipase (7-80) U/L 06/14/17 06/14/17 06/14/17 Range/Units 20:28 21:05 22:01 WBC (4.0-11.0) K/uL RBC (4.50-5.90) M/uL Hgb (13.0-17.0) g/dL Hct (38.0-50.0) % MCV (80.0-98.0) fL MCH (27.0-32.0) pg MCHC (31.0-37.0) g/dL RDW Std Deviation (28.0-62.0) fl RDW Coeff of Jessica (11.0-15.0) % Plt Count (150-400) K/uL MPV (7.40-12.00) fL Neut % (Auto) (48.0-80.0) % Lymph % (Auto) (16.0-40.0) % [place] % (Auto) (0.0-15.0) % Eos % (Auto) (0.0-7.0) % Baso % (Auto) (0.0-1.5) % Neut # (Auto) (1.4-5.7) K/uL Lymph # (Auto) (0.6-2.4) K/uL [place] # (Auto) (0.0-0.8) K/uL Eos # (Auto) (0.0-0.7) K/uL Baso # (Auto) (0.0-0.1) K/uL Nucleated RBC % /100WBC Nucleated RBCs # K/uL Sodium (136-146) mmol/L Potassium (3.5-5.1) mmol/L Chloride (98-110) mmol/L Carbon Dioxide (21-31) mmol/L BUN (6.0-23.0) mg/dL Creatinine (0.6-1.5) mg/dL Est Cr Clr Drug Dosing mL/min Estimated GFR (MDRD) ml/min Glucose (60-110) mg/dL POC Glucose 71 94 97 (60-110) mg/dL Calcium (8.8-10.8) mg/dL Total Bilirubin (0.1-1.5) mg/dL AST (5-40) IU/L ALT (8-54) IU/L Alkaline Phosphatase (40-150) Total Protein (6.0-8.0) g/dL Albumin (3.5-5.0) g/dL Globulin (2.0-3.5) g/dL Albumin/Globulin Ratio (1.3-2.8) Triglycerides (10-190) mg/dL Cholesterol (131-240) mg/dL HDL Cholesterol (40-80) mg/dL Cholesterol/HDL Ratio (3.3-6.0) Amylase (10-90) U/L Lipase (7-80) U/L 06/14/17 06/15/17 06/15/17 Range/Units 23:07 00:25 00:28 WBC (4.0-11.0) K/uL RBC (4.50-5.90) M/uL Hgb (13.0-17.0) g/dL Hct (38.0-50.0) % MCV (80.0-98.0) fL MCH (27.0-32.0) pg MCHC (31.0-37.0) g/dL RDW Std Deviation (28.0-62.0) fl RDW Coeff of Jessica (11.0-15.0) % Plt Count (150-400) K/uL MPV (7.40-12.00) fL Neut % (Auto) (48.0-80.0) % Lymph % (Auto) (16.0-40.0) % [place] % (Auto) (0.0-15.0) % Eos % (Auto) (0.0-7.0) % Baso % (Auto) (0.0-1.5) % Neut # (Auto) (1.4-5.7) K/uL Lymph # (Auto) (0.6-2.4) K/uL [place] # (Auto) (0.0-0.8) K/uL Eos # (Auto) (0.0-0.7) K/uL Baso # (Auto) (0.0-0.1) K/uL Nucleated RBC % /100WBC Nucleated RBCs # K/uL Sodium 139 (136-146) mmol/L Potassium 3.7 (3.5-5.1) mmol/L Chloride 108 (98-110) mmol/L Carbon Dioxide 22 (21-31) mmol/L BUN 7 (6.0-23.0) mg/dL Creatinine 0.7 (0.6-1.5) mg/dL Est Cr Clr Drug Dosing 120.26 mL/min Estimated GFR (MDRD) > 60.0 ml/min Glucose 87 (60-110) mg/dL POC Glucose 78 78 (60-110) mg/dL Calcium 7.9 L (8.8-10.8) mg/dL Total Bilirubin (0.1-1.5) mg/dL AST (5-40) IU/L ALT (8-54) IU/L Alkaline Phosphatase (40-150) Total Protein (6.0-8.0) g/dL Albumin (3.5-5.0) g/dL Globulin (2.0-3.5) g/dL Albumin/Globulin Ratio (1.3-2.8) Triglycerides (10-190) mg/dL Cholesterol (131-240) mg/dL HDL Cholesterol (40-80) mg/dL Cholesterol/HDL Ratio (3.3-6.0) Amylase (10-90) U/L Lipase (7-80) U/L 06/15/17 06/15/17 06/15/17 Range/Units 01:03 02:11 03:02 WBC (4.0-11.0) K/uL RBC (4.50-5.90) M/uL Hgb (13.0-17.0) g/dL Hct (38.0-50.0) % MCV (80.0-98.0) fL MCH (27.0-32.0) pg MCHC (31.0-37.0) g/dL RDW Std Deviation (28.0-62.0) fl RDW Coeff of Jessica (11.0-15.0) % Plt Count (150-400) K/uL MPV (7.40-12.00) fL Neut % (Auto) (48.0-80.0) % Lymph % (Auto) (16.0-40.0) % [place] % (Auto) (0.0-15.0) % Eos % (Auto) (0.0-7.0) % Baso % (Auto) (0.0-1.5) % Neut # (Auto) (1.4-5.7) K/uL Lymph # (Auto) (0.6-2.4) K/uL [place] # (Auto) (0.0-0.8) K/uL Eos # (Auto) (0.0-0.7) K/uL Baso # (Auto) (0.0-0.1) K/uL Nucleated RBC % /100WBC Nucleated RBCs # K/uL Sodium (136-146) mmol/L Potassium (3.5-5.1) mmol/L Chloride (98-110) mmol/L Carbon Dioxide (21-31) mmol/L BUN (6.0-23.0) mg/dL Creatinine (0.6-1.5) mg/dL Est Cr Clr Drug Dosing mL/min Estimated GFR (MDRD) ml/min Glucose (60-110) mg/dL POC Glucose 115 H 116 H 114 H (60-110) mg/dL Calcium (8.8-10.8) mg/dL Total Bilirubin (0.1-1.5) mg/dL AST (5-40) IU/L ALT (8-54) IU/L Alkaline Phosphatase (40-150) Total Protein (6.0-8.0) g/dL Albumin (3.5-5.0) g/dL Globulin (2.0-3.5) g/dL Albumin/Globulin Ratio (1.3-2.8) Triglycerides (10-190) mg/dL Cholesterol (131-240) mg/dL HDL Cholesterol (40-80) mg/dL Cholesterol/HDL Ratio (3.3-6.0) Amylase (10-90) U/L Lipase (7-80) U/L 06/15/17 06/15/17 06/15/17 Range/Units 04:05 04:10 04:10 WBC 5.11 (4.0-11.0) K/uL RBC 4.29 L (4.50-5.90) M/uL Hgb 13.3 (13.0-17.0) g/dL Hct 38.0 (38.0-50.0) % MCV 88.6 (80.0-98.0) fL MCH 31.0 (27.0-32.0) pg MCHC 35.0 (31.0-37.0) g/dL RDW Std Deviation 43.4 (28.0-62.0) fl RDW Coeff of Jessica 13 (11.0-15.0) % Plt Count 158 (150-400) K/uL MPV 11.50 (7.40-12.00) fL Neut % (Auto) 63.0 (48.0-80.0) % Lymph % (Auto) 26.8 (16.0-40.0) % [place] % (Auto) 6.7 (0.0-15.0) % Eos % (Auto) 3.3 (0.0-7.0) % Baso % (Auto) 0.2 (0.0-1.5) % Neut # (Auto) 3.2 (1.4-5.7) K/uL Lymph # (Auto) 1.4 (0.6-2.4) K/uL [place] # (Auto) 0.3 (0.0-0.8) K/uL Eos # (Auto) 0.2 (0.0-0.7) K/uL Baso # (Auto) 0.0 (0.0-0.1) K/uL Nucleated RBC % 0.0 /100WBC Nucleated RBCs # 0 K/uL Sodium (136-146) mmol/L Potassium (3.5-5.1) mmol/L Chloride (98-110) mmol/L Carbon Dioxide (21-31) mmol/L BUN (6.0-23.0) mg/dL Creatinine (0.6-1.5) mg/dL Est Cr Clr Drug Dosing mL/min Estimated GFR (MDRD) ml/min Glucose (60-110) mg/dL POC Glucose 122 H (60-110) mg/dL Calcium (8.8-10.8) mg/dL Total Bilirubin (0.1-1.5) mg/dL AST (5-40) IU/L ALT (8-54) IU/L Alkaline Phosphatase (40-150) Total Protein (6.0-8.0) g/dL Albumin (3.5-5.0) g/dL Globulin (2.0-3.5) g/dL Albumin/Globulin Ratio (1.3-2.8) Triglycerides 792 H (10-190) mg/dL Cholesterol (131-240) mg/dL HDL Cholesterol (40-80) mg/dL Cholesterol/HDL Ratio (3.3-6.0) Amylase 40 (10-90) U/L Lipase 30 (7-80) U/L 06/15/17 06/15/17 06/15/17 Range/Units 04:10 05:08 06:04 WBC (4.0-11.0) K/uL RBC (4.50-5.90) M/uL Hgb (13.0-17.0) g/dL Hct (38.0-50.0) % MCV (80.0-98.0) fL MCH (27.0-32.0) pg MCHC (31.0-37.0) g/dL RDW Std Deviation (28.0-62.0) fl RDW Coeff of Jessica (11.0-15.0) % Plt Count (150-400) K/uL MPV (7.40-12.00) fL Neut % (Auto) (48.0-80.0) % Lymph % (Auto) (16.0-40.0) % [place] % (Auto) (0.0-15.0) % Eos % (Auto) (0.0-7.0) % Baso % (Auto) (0.0-1.5) % Neut # (Auto) (1.4-5.7) K/uL Lymph # (Auto) (0.6-2.4) K/uL [place] # (Auto) (0.0-0.8) K/uL Eos # (Auto) (0.0-0.7) K/uL Baso # (Auto) (0.0-0.1) K/uL Nucleated RBC % /100WBC Nucleated RBCs # K/uL Sodium 137 (136-146) mmol/L Potassium 3.9 (3.5-5.1) mmol/L Chloride 109 (98-110) mmol/L Carbon Dioxide 21 (21-31) mmol/L BUN 4 L (6.0-23.0) mg/dL Creatinine 0.6 (0.6-1.5) mg/dL Est Cr Clr Drug Dosing 140.30 mL/min Estimated GFR (MDRD) > 60.0 ml/min Glucose 130 H (60-110) mg/dL POC Glucose 160 H 79 (60-110) mg/dL Calcium 7.8 L (8.8-10.8) mg/dL Total Bilirubin (0.1-1.5) mg/dL AST (5-40) IU/L ALT (8-54) IU/L Alkaline Phosphatase (40-150) Total Protein (6.0-8.0) g/dL Albumin (3.5-5.0) g/dL Globulin (2.0-3.5) g/dL Albumin/Globulin Ratio (1.3-2.8) Triglycerides (10-190) mg/dL Cholesterol (131-240) mg/dL HDL Cholesterol (40-80) mg/dL Cholesterol/HDL Ratio (3.3-6.0) Amylase (10-90) U/L Lipase (7-80) U/L 06/15/17 06/15/17 Range/Units 06:43 07:59 WBC (4.0-11.0) K/uL RBC (4.50-5.90) M/uL Hgb (13.0-17.0) g/dL Hct (38.0-50.0) % MCV (80.0-98.0) fL MCH (27.0-32.0) pg MCHC (31.0-37.0) g/dL RDW Std Deviation (28.0-62.0) fl RDW Coeff of Jessica (11.0-15.0) % Plt Count (150-400) K/uL MPV (7.40-12.00) fL Neut % (Auto) (48.0-80.0) % Lymph % (Auto) (16.0-40.0) % [place] % (Auto) (0.0-15.0) % Eos % (Auto) (0.0-7.0) % Baso % (Auto) (0.0-1.5) % Neut # (Auto) (1.4-5.7) K/uL Lymph # (Auto) (0.6-2.4) K/uL [place] # (Auto) (0.0-0.8) K/uL Eos # (Auto) (0.0-0.7) K/uL Baso # (Auto) (0.0-0.1) K/uL Nucleated RBC % /100WBC Nucleated RBCs # K/uL Sodium (136-146) mmol/L Potassium (3.5-5.1) mmol/L Chloride (98-110) mmol/L Carbon Dioxide (21-31) mmol/L BUN (6.0-23.0) mg/dL Creatinine (0.6-1.5) mg/dL Est Cr Clr Drug Dosing mL/min Estimated GFR (MDRD) ml/min Glucose (60-110) mg/dL POC Glucose 71 92 (60-110) mg/dL Calcium (8.8-10.8) mg/dL Total Bilirubin (0.1-1.5) mg/dL AST (5-40) IU/L ALT (8-54) IU/L Alkaline Phosphatase (40-150) Total Protein (6.0-8.0) g/dL Albumin (3.5-5.0) g/dL Globulin (2.0-3.5) g/dL Albumin/Globulin Ratio (1.3-2.8) Triglycerides (10-190) mg/dL Cholesterol (131-240) mg/dL HDL Cholesterol (40-80) mg/dL Cholesterol/HDL Ratio (3.3-6.0) Amylase (10-90) U/L Lipase (7-80) U/L Med Orders - Current: Current Medications Benzonatate (Tessalon Perles) 200 mg PO TID PRN PRN Reason: Cough Last Admin: 06/14/17 21:46 Dose: 200 mg Enoxaparin Sodium (Lovenox) 40 mg SUBCUT Q24H APOLINAR Last Admin: 06/14/17 17:24 Dose: 40 mg Gemfibrozil (Lopid) 600 mg PO BIDAC APOLINAR Last Admin: 06/15/17 06:33 Dose: 600 mg Hydromorphone HCl (Dilaudid [employer] 6 Mg In Ns 30 Ml) 6 mg IV ASDIRECTED APOLINAR PRN Reason: Protocol Last Admin: 06/15/17 01:47 Dose: 6 mg Dextrose/Water (Dextrose 5% In Water) 1,000 mls @ 75 mls/hr IV ASDIRECTED APOLINAR Last Admin: 06/14/17 18:58 Dose: 75 mls/hr Insulin Human Regular 100 unit (/ Sodium Chloride) 100 mls @ 3 mls/hr IV ASDIRECTED APOLINAR PRN Reason: Protocol Last Admin: 06/14/17 21:05 Dose: 3 unit/hr, 3 mls/hr Sodium Chloride (Normal Saline) 1,000 mls @ 200 mls/hr IV ASDIRECTED APOLINAR Last Admin: 06/15/17 05:15 Dose: 200 mls/hr Pantoprazole Sodium (Protonix Iv) 40 mg IV Q12HR [facility] Last Admin: 06/15/17 08:03 Dose: 40 mg Sodium Chloride (Saline Flush) 2.5 ml FLUSH ASDIRECTED PRN PRN Reason: Keep Vein Open Discontinued Medications Hydromorphone HCl (Dilaudid) 1 mg IVPUSH ONETIME ONE Stop: 06/15/17 05:46 Last Admin: 06/15/17 05:56 Dose: 1 mg Sodium Chloride (Normal Saline) 1,000 mls @ 200 mls/hr IV ASDIRECTED APOLINAR Last Admin: 06/14/17 18:58 Dose: 200 mls/hr Sodium Chloride (Normal Saline) 1,000 mls @ 999 mls/hr IV .BOLUS [facility] Last Admin: 06/14/17 17:54 Dose: 999 mls/hr Insulin Human Regular 100 unit (/ Sodium Chloride) 100 mls @ 2 mls/hr IV TITRATE APOLINAR PRN Reason: Protocol Influenza Virus Vaccine (Pharmacy To Dose - Influenza Vaccine) 1 each IM ONETIME ONE Stop: 06/14/17 16:53 Influenza Virus Vaccine (Fluarix Quad [id number]) 60 mcg IM .ONCE ONE Stop: 06/14/17 17:01 Potassium Chloride (Potassium Chloride) 40 meq PO ONETIME ONE Stop: 06/14/17 22:22 Last Admin: 06/14/17 23:12 Dose: Not Given Potassium Chloride (Klor-Con M20) 40 meq PO ONETIME ONE Stop: 06/14/17 23:14 Last Admin: 06/14/17 23:19 Dose: 40 meq - Exam General: Alert, Oriented HEENT: Pupils Equal, EOMI Neck: Supple, Trachea Midline Lungs: Clear to Auscultation, Normal Respiratory Effort Cardiovascular: Regular Rate, Regular Rhythm Back Exam: Normal Inspection Extremities: Normal Inspection, Normal Range of Motion Skin: Warm, Dry, Intact Neurological: No New Focal Deficit Psy/Mental Status: Alert, Normal Affect, Normal Mood - Problem List Review Problem List Initiated/Reviewed/Updated: Yes - My Orders Last 24 Hours: My Active Orders 06/14/17 17:30 Dextrose 5% in Water 1,000 ml IV ASDIRECTED 06/14/17 17:42 Transfer Patient (Change bed) [ADT] Routine 06/14/17 18:30 Insulin Regular, Human [NovoLIN R] 100 unit Sodium Chloride 0.9% [Normal Saline] 99 ml IV ASDIRECTED 06/15/17 08:03 BASIC METABOLIC PANEL,BMP [CHEM] Q4H 06/15/17 12:00 BASIC METABOLIC PANEL,BMP [CHEM] Q4H 06/15/17 16:00 BASIC METABOLIC PANEL,BMP [CHEM] Q4H 06/15/17 20:00 BASIC METABOLIC PANEL,BMP [CHEM] Q4H 06/16/17 00:00 BASIC METABOLIC PANEL,BMP [CHEM] Q4H 06/16/17 04:00 BASIC METABOLIC PANEL,BMP [CHEM] Q4H 06/16/17 05:11 AMYLASE [CHEM] AM CBC WITH AUTO DIFF [HEME] AM LIPASE [CHEM] AM TRIGLYCERIDES [CHEM] AM 06/16/17 08:00 BASIC METABOLIC PANEL,BMP [CHEM] Q4H 06/17/17 05:11 AMYLASE [CHEM] AM CBC WITH AUTO DIFF [HEME] AM LIPASE [CHEM] AM TRIGLYCERIDES [CHEM] AM - Plan Plan:: Hypertriglycerdemia induced pancreatitis Abdominal CT: acute pancreatitis without loculated fluid collection DIET: low fat, low carb diet: tolerating well. NO nausea/vomiting HT: start insulin drip at 3 units / hr along with D5W at 75 ml/hr ( blood glucose 130) acuchecks q 1hr. Once TG less than 500. discontinue Insulin drip. started on lopoid 600 mg bid. Chronic cough: on tessalon. He was taking losartan.recently but the cough was persistent before starting this medication. Home medication include prilosec. <Leopoldo Aly - Last Filed: 06/15/17 12:28> - General Info Subjective Update: I have examined the patient and reviewed history and labs. I agree with the physical exam, ROS, and plan for this patient as stated below. - Patient Data Vitals - Most Recent: Last Vital Signs Temp 97.0 F 06/15/17 12:00 Pulse 98 06/14/17 16:11 Resp 19 06/15/17 12:00 BP 125/78 06/15/17 12:00 Pulse Ox 95 06/15/17 12:00 I&O - Last 24 Hours: Intake & Output 06/14/17 06/15/17 06/15/17 22:59 06:59 14:59 Intake Total 4960 Output Total 2500 Balance 2460 Lab Results Last 24 Hours: Laboratory Results - last 24 hr 06/14/17 06/14/17 06/14/17 Range/Units 16:22 16:22 16:30 WBC 6.66 (4.0-11.0) K/uL RBC 4.67 (4.50-5.90) M/uL Hgb 15.1 (13.0-17.0) g/dL Hct 41.2 (38.0-50.0) % MCV 88.2 (80.0-98.0) fL MCH 32.3 H (27.0-32.0) pg MCHC 36.7 (31.0-37.0) g/dL RDW Std Deviation 43.2 (28.0-62.0) fl RDW Coeff of Jessica 13 (11.0-15.0) % Plt Count 191 (150-400) K/uL MPV 11.50 (7.40-12.00) fL Neut % (Auto) 72.2 (48.0-80.0) % Lymph % (Auto) 19.4 (16.0-40.0) % [place] % (Auto) 5.4 (0.0-15.0) % Eos % (Auto) 2.7 (0.0-7.0) % Baso % (Auto) 0.3 (0.0-1.5) % Neut # (Auto) 4.8 (1.4-5.7) K/uL Lymph # (Auto) 1.3 (0.6-2.4) K/uL [place] # (Auto) 0.4 (0.0-0.8) K/uL Eos # (Auto) 0.2 (0.0-0.7) K/uL Baso # (Auto) 0.0 (0.0-0.1) K/uL Nucleated RBC % 0.0 /100WBC Nucleated RBCs # 0 K/uL Sodium 136 (136-146) mmol/L Potassium 4.1 (3.5-5.1) mmol/L Chloride 102 (98-110) mmol/L Carbon Dioxide 24 (21-31) mmol/L BUN 11 (6.0-23.0) mg/dL Creatinine 0.7 (0.6-1.5) mg/dL Est Cr Clr Drug Dosing 120.26 mL/min Estimated GFR (MDRD) > 60.0 ml/min Glucose 170 H (60-110) mg/dL POC Glucose 160 H (60-110) mg/dL Calcium 9.3 (8.8-10.8) mg/dL Total Bilirubin 0.6 (0.1-1.5) mg/dL AST 30 (5-40) IU/L ALT 32 (8-54) IU/L Alkaline Phosphatase 71 (40-150) Total Protein 8.6 H (6.0-8.0) g/dL Albumin 4.2 (3.5-5.0) g/dL Globulin 4.4 H (2.0-3.5) g/dL Albumin/Globulin Ratio 1.0 L (1.3-2.8) Triglycerides 975 H (10-190) mg/dL Cholesterol 263 H (131-240) mg/dL HDL Cholesterol 20 L (40-80) mg/dL Cholesterol/HDL Ratio 13.2 H (3.3-6.0) Amylase 48 (10-90) U/L Lipase 45 (7-80) U/L 06/14/17 06/14/17 06/14/17 Range/Units 18:22 19:39 20:01 WBC (4.0-11.0) K/uL RBC (4.50-5.90) M/uL Hgb (13.0-17.0) g/dL Hct (38.0-50.0) % MCV (80.0-98.0) fL MCH (27.0-32.0) pg MCHC (31.0-37.0) g/dL RDW Std Deviation (28.0-62.0) fl RDW Coeff of Jessica (11.0-15.0) % Plt Count (150-400) K/uL MPV (7.40-12.00) fL Neut % (Auto) (48.0-80.0) % Lymph % (Auto) (16.0-40.0) % [place] % (Auto) (0.0-15.0) % Eos % (Auto) (0.0-7.0) % Baso % (Auto) (0.0-1.5) % Neut # (Auto) (1.4-5.7) K/uL Lymph # (Auto) (0.6-2.4) K/uL [place] # (Auto) (0.0-0.8) K/uL Eos # (Auto) (0.0-0.7) K/uL Baso # (Auto) (0.0-0.1) K/uL Nucleated RBC % /100WBC Nucleated RBCs # K/uL Sodium 139 (136-146) mmol/L Potassium 3.3 L (3.5-5.1) mmol/L Chloride 108 (98-110) mmol/L Carbon Dioxide 21 (21-31) mmol/L BUN 8 (6.0-23.0) mg/dL Creatinine 0.7 (0.6-1.5) mg/dL Est Cr Clr Drug Dosing 120.26 mL/min Estimated GFR (MDRD) > 60.0 ml/min Glucose 71 (60-110) mg/dL POC Glucose 96 85 (60-110) mg/dL Calcium 8.2 L (8.8-10.8) mg/dL Total Bilirubin (0.1-1.5) mg/dL AST (5-40) IU/L ALT (8-54) IU/L Alkaline Phosphatase (40-150) Total Protein (6.0-8.0) g/dL Albumin (3.5-5.0) g/dL Globulin (2.0-3.5) g/dL Albumin/Globulin Ratio (1.3-2.8) Triglycerides (10-190) mg/dL Cholesterol (131-240) mg/dL HDL Cholesterol (40-80) mg/dL Cholesterol/HDL Ratio (3.3-6.0) Amylase (10-90) U/L Lipase (7-80) U/L 06/14/17 06/14/17 06/14/17 Range/Units 20:28 21:05 22:01 WBC (4.0-11.0) K/uL RBC (4.50-5.90) M/uL Hgb (13.0-17.0) g/dL Hct (38.0-50.0) % MCV (80.0-98.0) fL MCH (27.0-32.0) pg MCHC (31.0-37.0) g/dL RDW Std Deviation (28.0-62.0) fl RDW Coeff of Jessica (11.0-15.0) % Plt Count (150-400) K/uL MPV (7.40-12.00) fL Neut % (Auto) (48.0-80.0) % Lymph % (Auto) (16.0-40.0) % [place] % (Auto) (0.0-15.0) % Eos % (Auto) (0.0-7.0) % Baso % (Auto) (0.0-1.5) % Neut # (Auto) (1.4-5.7) K/uL Lymph # (Auto) (0.6-2.4) K/uL [place] # (Auto) (0.0-0.8) K/uL Eos # (Auto) (0.0-0.7) K/uL Baso # (Auto) (0.0-0.1) K/uL Nucleated RBC % /100WBC Nucleated RBCs # K/uL Sodium (136-146) mmol/L Potassium (3.5-5.1) mmol/L Chloride (98-110) mmol/L Carbon Dioxide (21-31) mmol/L BUN (6.0-23.0) mg/dL Creatinine (0.6-1.5) mg/dL Est Cr Clr Drug Dosing mL/min Estimated GFR (MDRD) ml/min Glucose (60-110) mg/dL POC Glucose 71 94 97 (60-110) mg/dL Calcium (8.8-10.8) mg/dL Total Bilirubin (0.1-1.5) mg/dL AST (5-40) IU/L ALT (8-54) IU/L Alkaline Phosphatase (40-150) Total Protein (6.0-8.0) g/dL Albumin (3.5-5.0) g/dL Globulin (2.0-3.5) g/dL Albumin/Globulin Ratio (1.3-2.8) Triglycerides (10-190) mg/dL Cholesterol (131-240) mg/dL HDL Cholesterol (40-80) mg/dL Cholesterol/HDL Ratio (3.3-6.0) Amylase (10-90) U/L Lipase (7-80) U/L 06/14/17 06/15/17 06/15/17 Range/Units 23:07 00:25 00:28 WBC (4.0-11.0) K/uL RBC (4.50-5.90) M/uL Hgb (13.0-17.0) g/dL Hct (38.0-50.0) % MCV (80.0-98.0) fL MCH (27.0-32.0) pg MCHC (31.0-37.0) g/dL RDW Std Deviation (28.0-62.0) fl RDW Coeff of Jessica (11.0-15.0) % Plt Count (150-400) K/uL MPV (7.40-12.00) fL Neut % (Auto) (48.0-80.0) % Lymph % (Auto) (16.0-40.0) % [place] % (Auto) (0.0-15.0) % Eos % (Auto) (0.0-7.0) % Baso % (Auto) (0.0-1.5) % Neut # (Auto) (1.4-5.7) K/uL Lymph # (Auto) (0.6-2.4) K/uL [place] # (Auto) (0.0-0.8) K/uL Eos # (Auto) (0.0-0.7) K/uL Baso # (Auto) (0.0-0.1) K/uL Nucleated RBC % /100WBC Nucleated RBCs # K/uL Sodium 139 (136-146) mmol/L Potassium 3.7 (3.5-5.1) mmol/L Chloride 108 (98-110) mmol/L Carbon Dioxide 22 (21-31) mmol/L BUN 7 (6.0-23.0) mg/dL Creatinine 0.7 (0.6-1.5) mg/dL Est Cr Clr Drug Dosing 120.26 mL/min Estimated GFR (MDRD) > 60.0 ml/min Glucose 87 (60-110) mg/dL POC Glucose 78 78 (60-110) mg/dL Calcium 7.9 L (8.8-10.8) mg/dL Total Bilirubin (0.1-1.5) mg/dL AST (5-40) IU/L ALT (8-54) IU/L Alkaline Phosphatase (40-150) Total Protein (6.0-8.0) g/dL Albumin (3.5-5.0) g/dL Globulin (2.0-3.5) g/dL Albumin/Globulin Ratio (1.3-2.8) Triglycerides (10-190) mg/dL Cholesterol (131-240) mg/dL HDL Cholesterol (40-80) mg/dL Cholesterol/HDL Ratio (3.3-6.0) Amylase (10-90) U/L Lipase (7-80) U/L 06/15/17 06/15/17 06/15/17 Range/Units 01:03 02:11 03:02 WBC (4.0-11.0) K/uL RBC (4.50-5.90) M/uL Hgb (13.0-17.0) g/dL Hct (38.0-50.0) % MCV (80.0-98.0) fL MCH (27.0-32.0) pg MCHC (31.0-37.0) g/dL RDW Std Deviation (28.0-62.0) fl RDW Coeff of Jessica (11.0-15.0) % Plt Count (150-400) K/uL MPV (7.40-12.00) fL Neut % (Auto) (48.0-80.0) % Lymph % (Auto) (16.0-40.0) % [place] % (Auto) (0.0-15.0) % Eos % (Auto) (0.0-7.0) % Baso % (Auto) (0.0-1.5) % Neut # (Auto) (1.4-5.7) K/uL Lymph # (Auto) (0.6-2.4) K/uL [place] # (Auto) (0.0-0.8) K/uL Eos # (Auto) (0.0-0.7) K/uL Baso # (Auto) (0.0-0.1) K/uL Nucleated RBC % /100WBC Nucleated RBCs # K/uL Sodium (136-146) mmol/L Potassium (3.5-5.1) mmol/L Chloride (98-110) mmol/L Carbon Dioxide (21-31) mmol/L BUN (6.0-23.0) mg/dL Creatinine (0.6-1.5) mg/dL Est Cr Clr Drug Dosing mL/min Estimated GFR (MDRD) ml/min Glucose (60-110) mg/dL POC Glucose 115 H 116 H 114 H (60-110) mg/dL Calcium (8.8-10.8) mg/dL Total Bilirubin (0.1-1.5) mg/dL AST (5-40) IU/L ALT (8-54) IU/L Alkaline Phosphatase (40-150) Total Protein (6.0-8.0) g/dL Albumin (3.5-5.0) g/dL Globulin (2.0-3.5) g/dL Albumin/Globulin Ratio (1.3-2.8) Triglycerides (10-190) mg/dL Cholesterol (131-240) mg/dL HDL Cholesterol (40-80) mg/dL Cholesterol/HDL Ratio (3.3-6.0) Amylase (10-90) U/L Lipase (7-80) U/L 06/15/17 06/15/17 06/15/17 Range/Units 04:05 04:10 04:10 WBC 5.11 (4.0-11.0) K/uL RBC 4.29 L (4.50-5.90) M/uL Hgb 13.3 (13.0-17.0) g/dL Hct 38.0 (38.0-50.0) % MCV 88.6 (80.0-98.0) fL MCH 31.0 (27.0-32.0) pg MCHC 35.0 (31.0-37.0) g/dL RDW Std Deviation 43.4 (28.0-62.0) fl RDW Coeff of Jessica 13 (11.0-15.0) % Plt Count 158 (150-400) K/uL MPV 11.50 (7.40-12.00) fL Neut % (Auto) 63.0 (48.0-80.0) % Lymph % (Auto) 26.8 (16.0-40.0) % [place] % (Auto) 6.7 (0.0-15.0) % Eos % (Auto) 3.3 (0.0-7.0) % Baso % (Auto) 0.2 (0.0-1.5) % Neut # (Auto) 3.2 (1.4-5.7) K/uL Lymph # (Auto) 1.4 (0.6-2.4) K/uL [place] # (Auto) 0.3 (0.0-0.8) K/uL Eos # (Auto) 0.2 (0.0-0.7) K/uL Baso # (Auto) 0.0 (0.0-0.1) K/uL Nucleated RBC % 0.0 /100WBC Nucleated RBCs # 0 K/uL Sodium (136-146) mmol/L Potassium (3.5-5.1) mmol/L Chloride (98-110) mmol/L Carbon Dioxide (21-31) mmol/L BUN (6.0-23.0) mg/dL Creatinine (0.6-1.5) mg/dL Est Cr Clr Drug Dosing mL/min Estimated GFR (MDRD) ml/min Glucose (60-110) mg/dL POC Glucose 122 H (60-110) mg/dL Calcium (8.8-10.8) mg/dL Total Bilirubin (0.1-1.5) mg/dL AST (5-40) IU/L ALT (8-54) IU/L Alkaline Phosphatase (40-150) Total Protein (6.0-8.0) g/dL Albumin (3.5-5.0) g/dL Globulin (2.0-3.5) g/dL Albumin/Globulin Ratio (1.3-2.8) Triglycerides 792 H (10-190) mg/dL Cholesterol (131-240) mg/dL HDL Cholesterol (40-80) mg/dL Cholesterol/HDL Ratio (3.3-6.0) Amylase 40 (10-90) U/L Lipase 30 (7-80) U/L 06/15/17 06/15/17 06/15/17 Range/Units 04:10 05:08 06:04 WBC (4.0-11.0) K/uL RBC (4.50-5.90) M/uL Hgb (13.0-17.0) g/dL Hct (38.0-50.0) % MCV (80.0-98.0) fL MCH (27.0-32.0) pg MCHC (31.0-37.0) g/dL RDW Std Deviation (28.0-62.0) fl RDW Coeff of Jessica (11.0-15.0) % Plt Count (150-400) K/uL MPV (7.40-12.00) fL Neut % (Auto) (48.0-80.0) % Lymph % (Auto) (16.0-40.0) % [place] % (Auto) (0.0-15.0) % Eos % (Auto) (0.0-7.0) % Baso % (Auto) (0.0-1.5) % Neut # (Auto) (1.4-5.7) K/uL Lymph # (Auto) (0.6-2.4) K/uL [place] # (Auto) (0.0-0.8) K/uL Eos # (Auto) (0.0-0.7) K/uL Baso # (Auto) (0.0-0.1) K/uL Nucleated RBC % /100WBC Nucleated RBCs # K/uL Sodium 137 (136-146) mmol/L Potassium 3.9 (3.5-5.1) mmol/L Chloride 109 (98-110) mmol/L Carbon Dioxide 21 (21-31) mmol/L BUN 4 L (6.0-23.0) mg/dL Creatinine 0.6 (0.6-1.5) mg/dL Est Cr Clr Drug Dosing 140.30 mL/min Estimated GFR (MDRD) > 60.0 ml/min Glucose 130 H (60-110) mg/dL POC Glucose 160 H 79 (60-110) mg/dL Calcium 7.8 L (8.8-10.8) mg/dL Total Bilirubin (0.1-1.5) mg/dL AST (5-40) IU/L ALT (8-54) IU/L Alkaline Phosphatase (40-150) Total Protein (6.0-8.0) g/dL Albumin (3.5-5.0) g/dL Globulin (2.0-3.5) g/dL Albumin/Globulin Ratio (1.3-2.8) Triglycerides (10-190) mg/dL Cholesterol (131-240) mg/dL HDL Cholesterol (40-80) mg/dL Cholesterol/HDL Ratio (3.3-6.0) Amylase (10-90) U/L Lipase (7-80) U/L 06/15/17 06/15/17 06/15/17 Range/Units 06:43 07:59 08:03 WBC (4.0-11.0) K/uL RBC (4.50-5.90) M/uL Hgb (13.0-17.0) g/dL Hct (38.0-50.0) % MCV (80.0-98.0) fL MCH (27.0-32.0) pg MCHC (31.0-37.0) g/dL RDW Std Deviation (28.0-62.0) fl RDW Coeff of Jessica (11.0-15.0) % Plt Count (150-400) K/uL MPV (7.40-12.00) fL Neut % (Auto) (48.0-80.0) % Lymph % (Auto) (16.0-40.0) % [place] % (Auto) (0.0-15.0) % Eos % (Auto) (0.0-7.0) % Baso % (Auto) (0.0-1.5) % Neut # (Auto) (1.4-5.7) K/uL Lymph # (Auto) (0.6-2.4) K/uL [place] # (Auto) (0.0-0.8) K/uL Eos # (Auto) (0.0-0.7) K/uL Baso # (Auto) (0.0-0.1) K/uL Nucleated RBC % /100WBC Nucleated RBCs # K/uL Sodium 140 (136-146) mmol/L Potassium 3.5 (3.5-5.1) mmol/L Chloride 109 (98-110) mmol/L Carbon Dioxide 20 L (21-31) mmol/L BUN 5 L (6.0-23.0) mg/dL Creatinine 0.7 (0.6-1.5) mg/dL Est Cr Clr Drug Dosing 120.26 mL/min Estimated GFR (MDRD) > 60.0 ml/min Glucose 97 (60-110) mg/dL POC Glucose 71 92 (60-110) mg/dL Calcium 8.3 L (8.8-10.8) mg/dL Total Bilirubin (0.1-1.5) mg/dL AST (5-40) IU/L ALT (8-54) IU/L Alkaline Phosphatase (40-150) Total Protein (6.0-8.0) g/dL Albumin (3.5-5.0) g/dL Globulin (2.0-3.5) g/dL Albumin/Globulin Ratio (1.3-2.8) Triglycerides (10-190) mg/dL Cholesterol (131-240) mg/dL HDL Cholesterol (40-80) mg/dL Cholesterol/HDL Ratio (3.3-6.0) Amylase (10-90) U/L Lipase (7-80) U/L 06/15/17 06/15/17 06/15/17 Range/Units 08:58 10:32 11:02 WBC (4.0-11.0) K/uL RBC (4.50-5.90) M/uL Hgb (13.0-17.0) g/dL Hct (38.0-50.0) % MCV (80.0-98.0) fL MCH (27.0-32.0) pg MCHC (31.0-37.0) g/dL RDW Std Deviation (28.0-62.0) fl RDW Coeff of Jessica (11.0-15.0) % Plt Count (150-400) K/uL MPV (7.40-12.00) fL Neut % (Auto) (48.0-80.0) % Lymph % (Auto) (16.0-40.0) % [place] % (Auto) (0.0-15.0) % Eos % (Auto) (0.0-7.0) % Baso % (Auto) (0.0-1.5) % Neut # (Auto) (1.4-5.7) K/uL Lymph # (Auto) (0.6-2.4) K/uL [place] # (Auto) (0.0-0.8) K/uL Eos # (Auto) (0.0-0.7) K/uL Baso # (Auto) (0.0-0.1) K/uL Nucleated RBC % /100WBC Nucleated RBCs # K/uL Sodium (136-146) mmol/L Potassium (3.5-5.1) mmol/L Chloride (98-110) mmol/L Carbon Dioxide (21-31) mmol/L BUN (6.0-23.0) mg/dL Creatinine (0.6-1.5) mg/dL Est Cr Clr Drug Dosing mL/min Estimated GFR (MDRD) ml/min Glucose (60-110) mg/dL POC Glucose 76 85 143 H (60-110) mg/dL Calcium (8.8-10.8) mg/dL Total Bilirubin (0.1-1.5) mg/dL AST (5-40) IU/L ALT (8-54) IU/L Alkaline Phosphatase (40-150) Total Protein (6.0-8.0) g/dL Albumin (3.5-5.0) g/dL Globulin (2.0-3.5) g/dL Albumin/Globulin Ratio (1.3-2.8) Triglycerides (10-190) mg/dL Cholesterol (131-240) mg/dL HDL Cholesterol (40-80) mg/dL Cholesterol/HDL Ratio (3.3-6.0) Amylase (10-90) U/L Lipase (7-80) U/L 06/15/17 Range/Units 11:58 WBC (4.0-11.0) K/uL RBC (4.50-5.90) M/uL Hgb (13.0-17.0) g/dL Hct (38.0-50.0) % MCV (80.0-98.0) fL MCH (27.0-32.0) pg MCHC (31.0-37.0) g/dL RDW Std Deviation (28.0-62.0) fl RDW Coeff of Jessica (11.0-15.0) % Plt Count (150-400) K/uL MPV (7.40-12.00) fL Neut % (Auto) (48.0-80.0) % Lymph % (Auto) (16.0-40.0) % [place] % (Auto) (0.0-15.0) % Eos % (Auto) (0.0-7.0) % Baso % (Auto) (0.0-1.5) % Neut # (Auto) (1.4-5.7) K/uL Lymph # (Auto) (0.6-2.4) K/uL [place] # (Auto) (0.0-0.8) K/uL Eos # (Auto) (0.0-0.7) K/uL Baso # (Auto) (0.0-0.1) K/uL Nucleated RBC % /100WBC Nucleated RBCs # K/uL Sodium (136-146) mmol/L Potassium (3.5-5.1) mmol/L Chloride (98-110) mmol/L Carbon Dioxide (21-31) mmol/L BUN (6.0-23.0) mg/dL Creatinine (0.6-1.5) mg/dL Est Cr Clr Drug Dosing mL/min Estimated GFR (MDRD) ml/min Glucose (60-110) mg/dL POC Glucose 123 H (60-110) mg/dL Calcium (8.8-10.8) mg/dL Total Bilirubin (0.1-1.5) mg/dL AST (5-40) IU/L ALT (8-54) IU/L Alkaline Phosphatase (40-150) Total Protein (6.0-8.0) g/dL Albumin (3.5-5.0) g/dL Globulin (2.0-3.5) g/dL Albumin/Globulin Ratio (1.3-2.8) Triglycerides (10-190) mg/dL Cholesterol (131-240) mg/dL HDL Cholesterol (40-80) mg/dL Cholesterol/HDL Ratio (3.3-6.0) Amylase (10-90) U/L Lipase (7-80) U/L Med Orders - Current: Current Medications Benzonatate (Tessalon Perles) 200 mg PO TID PRN PRN Reason: Cough Last Admin: 06/14/17 21:46 Dose: 200 mg Enoxaparin Sodium (Lovenox) 40 mg SUBCUT Q24H [facility] Last Admin: 06/14/17 17:24 Dose: 40 mg Gemfibrozil (Lopid) 600 mg PO BIDAC [facility] Last Admin: 06/15/17 06:33 Dose: 600 mg Hydromorphone HCl (Dilaudid [employer] 6 Mg In Ns 30 Ml) 6 mg IV ASDIRECTED APOLINAR PRN Reason: Protocol Last Admin: 06/15/17 01:47 Dose: 6 mg Dextrose/Water (Dextrose 5% In Water) 1,000 mls @ 75 mls/hr IV ASDIRECTED [facility] Last Admin: 06/15/17 08:32 Dose: 75 mls/hr Insulin Human Regular 100 unit (/ Sodium Chloride) 100 mls @ 3 mls/hr IV ASDIRECTED APOLINAR PRN Reason: Protocol Last Admin: 06/14/17 21:05 Dose: 3 unit/hr, 3 mls/hr Sodium Chloride (Normal Saline) 1,000 mls @ 200 mls/hr IV ASDIRECTED [facility] Last Admin: 06/15/17 10:51 Dose: 200 mls/hr Pantoprazole Sodium (Protonix Iv) 40 mg IV Q12HR [facility] Last Admin: 06/15/17 08:03 Dose: 40 mg Sodium Chloride (Saline Flush) 2.5 ml FLUSH ASDIRECTED PRN PRN Reason: Keep Vein Open Discontinued Medications Hydromorphone HCl (Dilaudid) 1 mg IVPUSH ONETIME ONE Stop: 06/15/17 05:46 Last Admin: 06/15/17 05:56 Dose: 1 mg Sodium Chloride (Normal Saline) 1,000 mls @ 200 mls/hr IV ASDIRECTED AP[facility]INAR Last Admin: 06/14/17 18:58 Dose: 200 mls/hr Sodium Chloride (Normal Saline) 1,000 mls @ 999 mls/hr IV .BOLUS APOLINAR Last Admin: 06/14/17 17:54 Dose: 999 mls/hr Insulin Human Regular 100 unit (/ Sodium Chloride) 100 mls @ 2 mls/hr IV TITRATE AP[facility]IN[facility] PRN Reason: Protocol Influenza Virus Vaccine (Pharmacy To Dose - Influenza Vaccine) 1 each IM ONETIME ONE Stop: 06/14/17 16:53 Influenza Virus Vaccine (Fluarix Quad [id number]) 60 mcg IM .ONCE ONE Stop: 06/14/17 17:01 Potassium Chloride (Potassium Chloride) 40 meq PO ONETIME ONE Stop: 06/14/17 22:22 Last Admin: 06/14/17 23:12 Dose: Not Given Potassium Chloride (Klor-Con M20) 40 meq PO ONETIME ONE Stop: 06/14/17 23:14 Last Admin: 06/14/17 23:19 Dose: 40 meq - My Orders Last 24 Hours: My Active Orders 06/15/17 00:15 Sodium Chloride 0.9% [Normal Saline] 1,000 ml IV ASDIRECTED
[2017-06-15] MEDS: Dextrose 5% in Water 1,000 ML IV SCH ×2 (08:32→21:52)
[2017-06-15 08:35] LABS: CHLORIDE,CL 109 mmol/L (98-110); SODIUM,NA 140 mmol/L (136-146)
[2017-06-15 12:31] LABS: CHLORIDE,CL 107 mmol/L (98-110); SODIUM,NA 137 mmol/L (136-146)
[2017-06-15] MEDS: Benzonatate 100 MG Cap PO PRN (14:08)
--- NOTE | 2017-06-15 15:39 | CT ---
EXAM DATE: 06/14/17 PATIENT'S AGE: 46 Patient: SKYLA HINDS Facility: [place], [place] Site . Site : 1970 Study: CT Abdomen/Pelvis WO CONT [id number] 5:25:34 PM Ordering Physician: Luis Mendoza Final Report: INDICATION: ABDOMINAL PAIN TECHNIQUE: CT abdomen and pelvis without contrast. COMPARISON: April 19, 2017 FINDINGS: Lower chest: Mild scarring/atelectasis. Liver: Mild diffuse fatty infiltration of the liver. Spleen: Unremarkable. Pancreas: Mild peripancreatic stranding. No gross evidence of loculated fluid collection. Gallbladder and bile ducts: Unremarkable. Kidneys: Unremarkable. No kidney or ureteral stones and no hydronephrosis. Adrenal glands: Unremarkable. GI tract: Unremarkable. Appendix is normal. Vascular structures: Unremarkable. Lymph nodes: Unremarkable. Miscellaneous: Unremarkable. No free air or significant free fluid. Pelvic Organs: Unremarkable. Bones: Unremarkable for age. IMPRESSION: Acute pancreatitis with no gross evidence of loculated fluid collection on this unenhanced CT examination. Dictated by Lane Alejandre MD @ 06/14/2017 5:57:57 PM Dictated by: Lane Alejandre MD @ 06/14/2017 17:58:03 (Electronic Signature) Report Signed by Proxy. [facility]
[2017-06-15 16:31] LABS: CHLORIDE,CL 108 mmol/L (98-110); SODIUM,NA 136 mmol/L (136-146)
[2017-06-15] MEDS: Enoxaparin 40 MG/0.4 ML Syringe SUBCUT SCH (17:09)
[2017-06-15 20:41] LABS: CHLORIDE,CL 106 mmol/L (98-110); SODIUM,NA 137 mmol/L (136-146)
[2017-06-16 00:49] LABS: CHLORIDE,CL 108 mmol/L (98-110); SODIUM,NA 137 mmol/L (136-146)
[2017-06-16] MEDS: HYDROmorphone/Normal Saline 6 MG/30 ML PCA Vial IV SCH ×2 (01:09→22:42)
[2017-06-16] MEDS: Sodium Chloride 0.9% 1,000 ML IV SCH ×4 (01:55→19:16)
[2017-06-16 04:32] LABS: CHLORIDE,CL 108 mmol/L (98-110); SODIUM,NA 138 mmol/L (136-146)
[2017-06-16] MEDS: Gemfibrozil 600 MG Tab PO SCH ×2 (07:12→17:08)
[2017-06-16 08:23] LABS: CHLORIDE,CL 108 mmol/L (98-110); SODIUM,NA 137 mmol/L (136-146)
[2017-06-16] MEDS: Pantoprazole 40 MG Vial IV SCH ×2 (08:28→20:58)
--- NOTE | 2017-06-16 08:49 | PCM.PN ---
- General Info Date of Service: 06/16/17 Admission Dx/Problem (Free Text): Admission Diagnosis/Problem Admission Diagnosis/Problem Hypertriglyceridemia pancreatitis Subjective Update: Feels pain is still in epigastric area but no longer radiating to the back. Controlled at this time. Good appetite, no chest pain, palpitations, sob, having bowel movements. Functional Status: Reports: Pain Controlled - Review of Systems General: Denies: Fever, Weakness, Fatigue HEENT: Denies: Dysphasia, Headaches Pulmonary: Denies: Shortness of Breath, Pleuritic Chest Pain Cardiovascular: Denies: Chest Pain, Palpitations Gastrointestinal: Reports: Abdominal Pain. Denies: Constipation, Nausea Genitourinary: Denies: Dysuria Musculoskeletal: Denies: Neck Pain, Leg Pain Skin: Denies: Cyanosis Neurological: Denies: Confusion, Dizziness, Headache Psychiatric: Denies: Confusion - Patient Data Vitals - Most Recent: Last Vital Signs Temp 97.2 F 06/16/17 08:00 Pulse 71 06/16/17 08:00 Resp 18 06/16/17 08:00 BP 130/79 06/16/17 08:00 Pulse Ox 97 06/16/17 08:00 Weight - Most Recent: 90.673 kg I&O - Last 24 Hours: Intake & Output 06/15/17 06/16/17 06/16/17 22:59 06:59 14:59 Intake Total 4303 4047 Output Total 2390 2600 Balance 1913 1447 Lab Results Last 24 Hours: Laboratory Results - last 24 hr 06/15/17 06/15/17 06/15/17 Range/Units 08:03 08:58 10:32 WBC (4.0-11.0) K/uL RBC (4.50-5.90) M/uL Hgb (13.0-17.0) g/dL Hct (38.0-50.0) % MCV (80.0-98.0) fL MCH (27.0-32.0) pg MCHC (31.0-37.0) g/dL RDW Std Deviation (28.0-62.0) fl RDW Coeff of Jessica (11.0-15.0) % Plt Count (150-400) K/uL MPV (7.40-12.00) fL Neut % (Auto) (48.0-80.0) % Lymph % (Auto) (16.0-40.0) % [place] % (Auto) (0.0-15.0) % Eos % (Auto) (0.0-7.0) % Baso % (Auto) (0.0-1.5) % Neut # (Auto) (1.4-5.7) K/uL Lymph # (Auto) (0.6-2.4) K/uL [place] # (Auto) (0.0-0.8) K/uL Eos # (Auto) (0.0-0.7) K/uL Baso # (Auto) (0.0-0.1) K/uL Nucleated RBC % /100WBC Nucleated RBCs # K/uL Sodium 140 (136-146) mmol/L Potassium 3.5 (3.5-5.1) mmol/L Chloride 109 (98-110) mmol/L Carbon Dioxide 20 L (21-31) mmol/L BUN 5 L (6.0-23.0) mg/dL Creatinine 0.7 (0.6-1.5) mg/dL Est Cr Clr Drug Dosing 120.26 mL/min Estimated GFR (MDRD) > 60.0 ml/min Glucose 97 (60-110) mg/dL POC Glucose 76 85 (60-110) mg/dL Calcium 8.3 L (8.8-10.8) mg/dL Triglycerides (10-190) mg/dL Amylase (10-90) U/L Lipase (7-80) U/L 06/15/17 06/15/17 06/15/17 Range/Units 11:02 11:58 12:00 WBC (4.0-11.0) K/uL RBC (4.50-5.90) M/uL Hgb (13.0-17.0) g/dL Hct (38.0-50.0) % MCV (80.0-98.0) fL MCH (27.0-32.0) pg MCHC (31.0-37.0) g/dL RDW Std Deviation (28.0-62.0) fl RDW Coeff of Jessica (11.0-15.0) % Plt Count (150-400) K/uL MPV (7.40-12.00) fL Neut % (Auto) (48.0-80.0) % Lymph % (Auto) (16.0-40.0) % [place] % (Auto) (0.0-15.0) % Eos % (Auto) (0.0-7.0) % Baso % (Auto) (0.0-1.5) % Neut # (Auto) (1.4-5.7) K/uL Lymph # (Auto) (0.6-2.4) K/uL [place] # (Auto) (0.0-0.8) K/uL Eos # (Auto) (0.0-0.7) K/uL Baso # (Auto) (0.0-0.1) K/uL Nucleated RBC % /100WBC Nucleated RBCs # K/uL Sodium 137 (136-146) mmol/L Potassium 4.3 (3.5-5.1) mmol/L Chloride 107 (98-110) mmol/L Carbon Dioxide 23 (21-31) mmol/L BUN 6 (6.0-23.0) mg/dL Creatinine 0.7 (0.6-1.5) mg/dL Est Cr Clr Drug Dosing 120.26 mL/min Estimated GFR (MDRD) > 60.0 ml/min Glucose 119 H (60-110) mg/dL POC Glucose 143 H 123 H (60-110) mg/dL Calcium 8.5 L (8.8-10.8) mg/dL Triglycerides (10-190) mg/dL Amylase (10-90) U/L Lipase (7-80) U/L 06/15/17 06/15/17 06/15/17 Range/Units 13:10 14:03 15:07 WBC (4.0-11.0) K/uL RBC (4.50-5.90) M/uL Hgb (13.0-17.0) g/dL Hct (38.0-50.0) % MCV (80.0-98.0) fL MCH (27.0-32.0) pg MCHC (31.0-37.0) g/dL RDW Std Deviation (28.0-62.0) fl RDW Coeff of Jessica (11.0-15.0) % Plt Count (150-400) K/uL MPV (7.40-12.00) fL Neut % (Auto) (48.0-80.0) % Lymph % (Auto) (16.0-40.0) % [place] % (Auto) (0.0-15.0) % Eos % (Auto) (0.0-7.0) % Baso % (Auto) (0.0-1.5) % Neut # (Auto) (1.4-5.7) K/uL Lymph # (Auto) (0.6-2.4) K/uL [place] # (Auto) (0.0-0.8) K/uL Eos # (Auto) (0.0-0.7) K/uL Baso # (Auto) (0.0-0.1) K/uL Nucleated RBC % /100WBC Nucleated RBCs # K/uL Sodium (136-146) mmol/L Potassium (3.5-5.1) mmol/L Chloride (98-110) mmol/L Carbon Dioxide (21-31) mmol/L BUN (6.0-23.0) mg/dL Creatinine (0.6-1.5) mg/dL Est Cr Clr Drug Dosing mL/min Estimated GFR (MDRD) ml/min Glucose (60-110) mg/dL POC Glucose 128 H 144 H 138 H (60-110) mg/dL Calcium (8.8-10.8) mg/dL Triglycerides (10-190) mg/dL Amylase (10-90) U/L Lipase (7-80) U/L 06/15/17 06/15/17 06/15/17 Range/Units 16:02 16:03 17:09 WBC (4.0-11.0) K/uL RBC (4.50-5.90) M/uL Hgb (13.0-17.0) g/dL Hct (38.0-50.0) % MCV (80.0-98.0) fL MCH (27.0-32.0) pg MCHC (31.0-37.0) g/dL RDW Std Deviation (28.0-62.0) fl RDW Coeff of Jessica (11.0-15.0) % Plt Count (150-400) K/uL MPV (7.40-12.00) fL Neut % (Auto) (48.0-80.0) % Lymph % (Auto) (16.0-40.0) % [place] % (Auto) (0.0-15.0) % Eos % (Auto) (0.0-7.0) % Baso % (Auto) (0.0-1.5) % Neut # (Auto) (1.4-5.7) K/uL Lymph # (Auto) (0.6-2.4) K/uL [place] # (Auto) (0.0-0.8) K/uL Eos # (Auto) (0.0-0.7) K/uL Baso # (Auto) (0.0-0.1) K/uL Nucleated RBC % /100WBC Nucleated RBCs # K/uL Sodium 136 (136-146) mmol/L Potassium 4.2 (3.5-5.1) mmol/L Chloride 108 (98-110) mmol/L Carbon Dioxide 21 (21-31) mmol/L BUN 4 L (6.0-23.0) mg/dL Creatinine 0.7 (0.6-1.5) mg/dL Est Cr Clr Drug Dosing 120.26 mL/min Estimated GFR (MDRD) > 60.0 ml/min Glucose 131 H (60-110) mg/dL POC Glucose 115 H 104 (60-110) mg/dL Calcium 8.4 L (8.8-10.8) mg/dL Triglycerides (10-190) mg/dL Amylase (10-90) U/L Lipase (7-80) U/L 06/15/17 06/15/17 06/15/17 Range/Units 18:12 18:56 20:02 WBC (4.0-11.0) K/uL RBC (4.50-5.90) M/uL Hgb (13.0-17.0) g/dL Hct (38.0-50.0) % MCV (80.0-98.0) fL MCH (27.0-32.0) pg MCHC (31.0-37.0) g/dL RDW Std Deviation (28.0-62.0) fl RDW Coeff of Jessica (11.0-15.0) % Plt Count (150-400) K/uL MPV (7.40-12.00) fL Neut % (Auto) (48.0-80.0) % Lymph % (Auto) (16.0-40.0) % [place] % (Auto) (0.0-15.0) % Eos % (Auto) (0.0-7.0) % Baso % (Auto) (0.0-1.5) % Neut # (Auto) (1.4-5.7) K/uL Lymph # (Auto) (0.6-2.4) K/uL [place] # (Auto) (0.0-0.8) K/uL Eos # (Auto) (0.0-0.7) K/uL Baso # (Auto) (0.0-0.1) K/uL Nucleated RBC % /100WBC Nucleated RBCs # K/uL Sodium 137 (136-146) mmol/L Potassium 4.2 (3.5-5.1) mmol/L Chloride 106 (98-110) mmol/L Carbon Dioxide 24 (21-31) mmol/L BUN 3 L (6.0-23.0) mg/dL Creatinine 0.8 (0.6-1.5) mg/dL Est Cr Clr Drug Dosing 105.23 mL/min Estimated GFR (MDRD) > 60.0 ml/min Glucose 134 H (60-110) mg/dL POC Glucose 130 H 126 H (60-110) mg/dL Calcium 8.3 L (8.8-10.8) mg/dL Triglycerides (10-190) mg/dL Amylase (10-90) U/L Lipase (7-80) U/L 06/15/17 06/15/17 06/15/17 Range/Units 20:13 21:14 22:04 WBC (4.0-11.0) K/uL RBC (4.50-5.90) M/uL Hgb (13.0-17.0) g/dL Hct (38.0-50.0) % MCV (80.0-98.0) fL MCH (27.0-32.0) pg MCHC (31.0-37.0) g/dL RDW Std Deviation (28.0-62.0) fl RDW Coeff of Jessica (11.0-15.0) % Plt Count (150-400) K/uL MPV (7.40-12.00) fL Neut % (Auto) (48.0-80.0) % Lymph % (Auto) (16.0-40.0) % [place] % (Auto) (0.0-15.0) % Eos % (Auto) (0.0-7.0) % Baso % (Auto) (0.0-1.5) % Neut # (Auto) (1.4-5.7) K/uL Lymph # (Auto) (0.6-2.4) K/uL [place] # (Auto) (0.0-0.8) K/uL Eos # (Auto) (0.0-0.7) K/uL Baso # (Auto) (0.0-0.1) K/uL Nucleated RBC % /100WBC Nucleated RBCs # K/uL Sodium (136-146) mmol/L Potassium (3.5-5.1) mmol/L Chloride (98-110) mmol/L Carbon Dioxide (21-31) mmol/L BUN (6.0-23.0) mg/dL Creatinine (0.6-1.5) mg/dL Est Cr Clr Drug Dosing mL/min Estimated GFR (MDRD) ml/min Glucose (60-110) mg/dL POC Glucose 124 H 105 123 H (60-110) mg/dL Calcium (8.8-10.8) mg/dL Triglycerides (10-190) mg/dL Amylase (10-90) U/L Lipase (7-80) U/L 06/15/17 06/15/17 06/16/17 Range/Units 23:06 23:58 00:16 WBC (4.0-11.0) K/uL RBC (4.50-5.90) M/uL Hgb (13.0-17.0) g/dL Hct (38.0-50.0) % MCV (80.0-98.0) fL MCH (27.0-32.0) pg MCHC (31.0-37.0) g/dL RDW Std Deviation (28.0-62.0) fl RDW Coeff of Jessica (11.0-15.0) % Plt Count (150-400) K/uL MPV (7.40-12.00) fL Neut % (Auto) (48.0-80.0) % Lymph % (Auto) (16.0-40.0) % [place] % (Auto) (0.0-15.0) % Eos % (Auto) (0.0-7.0) % Baso % (Auto) (0.0-1.5) % Neut # (Auto) (1.4-5.7) K/uL Lymph # (Auto) (0.6-2.4) K/uL [place] # (Auto) (0.0-0.8) K/uL Eos # (Auto) (0.0-0.7) K/uL Baso # (Auto) (0.0-0.1) K/uL Nucleated RBC % /100WBC Nucleated RBCs # K/uL Sodium 137 (136-146) mmol/L Potassium 4.2 (3.5-5.1) mmol/L Chloride 108 (98-110) mmol/L Carbon Dioxide 22 (21-31) mmol/L BUN 9 (6.0-23.0) mg/dL Creatinine 0.8 (0.6-1.5) mg/dL Est Cr Clr Drug Dosing 105.23 mL/min Estimated GFR (MDRD) > 60.0 ml/min Glucose 108 (60-110) mg/dL POC Glucose 80 115 H (60-110) mg/dL Calcium 8.5 L (8.8-10.8) mg/dL Triglycerides (10-190) mg/dL Amylase (10-90) U/L Lipase (7-80) U/L 06/16/17 06/16/17 06/16/17 Range/Units 01:23 03:07 04:03 WBC (4.0-11.0) K/uL RBC (4.50-5.90) M/uL Hgb (13.0-17.0) g/dL Hct (38.0-50.0) % MCV (80.0-98.0) fL MCH (27.0-32.0) pg MCHC (31.0-37.0) g/dL RDW Std Deviation (28.0-62.0) fl RDW Coeff of Jessica (11.0-15.0) % Plt Count (150-400) K/uL MPV (7.40-12.00) fL Neut % (Auto) (48.0-80.0) % Lymph % (Auto) (16.0-40.0) % [place] % (Auto) (0.0-15.0) % Eos % (Auto) (0.0-7.0) % Baso % (Auto) (0.0-1.5) % Neut # (Auto) (1.4-5.7) K/uL Lymph # (Auto) (0.6-2.4) K/uL [place] # (Auto) (0.0-0.8) K/uL Eos # (Auto) (0.0-0.7) K/uL Baso # (Auto) (0.0-0.1) K/uL Nucleated RBC % /100WBC Nucleated RBCs # K/uL Sodium (136-146) mmol/L Potassium (3.5-5.1) mmol/L Chloride (98-110) mmol/L Carbon Dioxide (21-31) mmol/L BUN (6.0-23.0) mg/dL Creatinine (0.6-1.5) mg/dL Est Cr Clr Drug Dosing mL/min Estimated GFR (MDRD) ml/min Glucose (60-110) mg/dL POC Glucose 111 H 147 H 109 (60-110) mg/dL Calcium (8.8-10.8) mg/dL Triglycerides (10-190) mg/dL Amylase (10-90) U/L Lipase (7-80) U/L 06/16/17 06/16/17 06/16/17 Range/Units 04:05 04:05 04:05 WBC 3.67 L (4.0-11.0) K/uL RBC 4.21 L (4.50-5.90) M/uL Hgb 13.1 (13.0-17.0) g/dL Hct 38.1 (38.0-50.0) % MCV 90.5 (80.0-98.0) fL MCH 31.1 (27.0-32.0) pg MCHC 34.4 (31.0-37.0) g/dL RDW Std Deviation 44.4 (28.0-62.0) fl RDW Coeff of Jessica 13 (11.0-15.0) % Plt Count 168 (150-400) K/uL MPV 11.50 (7.40-12.00) fL Neut % (Auto) 40.1 L (48.0-80.0) % Lymph % (Auto) 43.6 H (16.0-40.0) % [place] % (Auto) 8.7 (0.0-15.0) % Eos % (Auto) 7.1 H (0.0-7.0) % Baso % (Auto) 0.5 (0.0-1.5) % Neut # (Auto) 1.5 (1.4-5.7) K/uL Lymph # (Auto) 1.6 (0.6-2.4) K/uL [place] # (Auto) 0.3 (0.0-0.8) K/uL Eos # (Auto) 0.3 (0.0-0.7) K/uL Baso # (Auto) 0.0 (0.0-0.1) K/uL Nucleated RBC % 0.0 /100WBC Nucleated RBCs # 0 K/uL Sodium 138 (136-146) mmol/L Potassium 4.3 (3.5-5.1) mmol/L Chloride 108 (98-110) mmol/L Carbon Dioxide 22 (21-31) mmol/L BUN 7 (6.0-23.0) mg/dL Creatinine 0.7 (0.6-1.5) mg/dL Est Cr Clr Drug Dosing 120.26 mL/min Estimated GFR (MDRD) > 60.0 ml/min Glucose 112 H (60-110) mg/dL POC Glucose (60-110) mg/dL Calcium 8.5 L (8.8-10.8) mg/dL Triglycerides 685 H (10-190) mg/dL Amylase 44 (10-90) U/L Lipase 26 (7-80) U/L 06/16/17 06/16/17 06/16/17 Range/Units 05:05 06:00 07:11 WBC (4.0-11.0) K/uL RBC (4.50-5.90) M/uL Hgb (13.0-17.0) g/dL Hct (38.0-50.0) % MCV (80.0-98.0) fL MCH (27.0-32.0) pg MCHC (31.0-37.0) g/dL RDW Std Deviation (28.0-62.0) fl RDW Coeff of Jessica (11.0-15.0) % Plt Count (150-400) K/uL MPV (7.40-12.00) fL Neut % (Auto) (48.0-80.0) % Lymph % (Auto) (16.0-40.0) % [place] % (Auto) (0.0-15.0) % Eos % (Auto) (0.0-7.0) % Baso % (Auto) (0.0-1.5) % Neut # (Auto) (1.4-5.7) K/uL Lymph # (Auto) (0.6-2.4) K/uL [place] # (Auto) (0.0-0.8) K/uL Eos # (Auto) (0.0-0.7) K/uL Baso # (Auto) (0.0-0.1) K/uL Nucleated RBC % /100WBC Nucleated RBCs # K/uL Sodium (136-146) mmol/L Potassium (3.5-5.1) mmol/L Chloride (98-110) mmol/L Carbon Dioxide (21-31) mmol/L BUN (6.0-23.0) mg/dL Creatinine (0.6-1.5) mg/dL Est Cr Clr Drug Dosing mL/min Estimated GFR (MDRD) ml/min Glucose (60-110) mg/dL POC Glucose 144 H 153 H 117 H (60-110) mg/dL Calcium (8.8-10.8) mg/dL Triglycerides (10-190) mg/dL Amylase (10-90) U/L Lipase (7-80) U/L 06/16/17 06/16/17 Range/Units 07:55 08:22 WBC (4.0-11.0) K/uL RBC (4.50-5.90) M/uL Hgb (13.0-17.0) g/dL Hct (38.0-50.0) % MCV (80.0-98.0) fL MCH (27.0-32.0) pg MCHC (31.0-37.0) g/dL RDW Std Deviation (28.0-62.0) fl RDW Coeff of Jessica (11.0-15.0) % Plt Count (150-400) K/uL MPV (7.40-12.00) fL Neut % (Auto) (48.0-80.0) % Lymph % (Auto) (16.0-40.0) % [place] % (Auto) (0.0-15.0) % Eos % (Auto) (0.0-7.0) % Baso % (Auto) (0.0-1.5) % Neut # (Auto) (1.4-5.7) K/uL Lymph # (Auto) (0.6-2.4) K/uL [place] # (Auto) (0.0-0.8) K/uL Eos # (Auto) (0.0-0.7) K/uL Baso # (Auto) (0.0-0.1) K/uL Nucleated RBC % /100WBC Nucleated RBCs # K/uL Sodium 137 (136-146) mmol/L Potassium 4.1 (3.5-5.1) mmol/L Chloride 108 (98-110) mmol/L Carbon Dioxide 23 (21-31) mmol/L BUN 7 (6.0-23.0) mg/dL Creatinine 0.7 (0.6-1.5) mg/dL Est Cr Clr Drug Dosing 120.87 mL/min Estimated GFR (MDRD) > 60.0 ml/min Glucose 103 (60-110) mg/dL POC Glucose 97 (60-110) mg/dL Calcium 8.6 L (8.8-10.8) mg/dL Triglycerides (10-190) mg/dL Amylase (10-90) U/L Lipase (7-80) U/L Med Orders - Current: Current Medications Benzonatate (Tessalon Perles) 200 mg PO TID PRN PRN Reason: Cough Last Admin: 06/15/17 14:08 Dose: 200 mg Enoxaparin Sodium (Lovenox) 40 mg SUBCUT Q24H APOLINAR Last Admin: 06/15/17 17:09 Dose: 40 mg Gemfibrozil (Lopid) 600 mg PO BIDAC APOLINAR Last Admin: 06/16/17 07:12 Dose: 600 mg Hydromorphone HCl (Dilaudid Mechanical Fitter 6 Mg In Ns 30 Ml) 6 mg IV ASDIRECTED APOLINAR PRN Reason: Protocol Last Admin: 06/16/17 01:09 Dose: 6 mg Dextrose/Water (Dextrose 5% In Water) 1,000 mls @ 75 mls/hr IV ASDIRECTED COUNT INCLUDES THE [facility] Last Admin: 06/15/17 21:52 Dose: 75 mls/hr Insulin Human Regular 100 unit (/ Sodium Chloride) 100 mls @ 3 mls/hr IV ASDIRECTED APOLINAR PRN Reason: Protocol Last Admin: 06/15/17 18:00 Dose: 3 unit/hr, 3 mls/hr Sodium Chloride (Normal Saline) 1,000 mls @ 200 mls/hr IV ASDIRECTED COUNT INCLUDES THE [facility] Last Admin: 06/16/17 07:20 Dose: 200 mls/hr Pantoprazole Sodium (Protonix Iv) 40 mg IV Q12HR COUNT INCLUDES THE [facility] Last Admin: 06/16/17 08:28 Dose: 40 mg Sodium Chloride (Saline Flush) 2.5 ml FLUSH ASDIRECTED PRN PRN Reason: Keep Vein Open Discontinued Medications Hydromorphone HCl (Dilaudid) 1 mg IVPUSH ONETIME ONE Stop: 06/15/17 05:46 Last Admin: 06/15/17 05:56 Dose: 1 mg Sodium Chloride (Normal Saline) 1,000 mls @ 200 mls/hr IV ASDIRECTED COUNT INCLUDES THE [facility] Last Admin: 06/14/17 18:58 Dose: 200 mls/hr Sodium Chloride (Normal Saline) 1,000 mls @ 999 mls/hr IV .BOLUS COUNT INCLUDES THE [facility] Last Admin: 06/14/17 17:54 Dose: 999 mls/hr Insulin Human Regular 100 unit (/ Sodium Chloride) 100 mls @ 2 mls/hr IV TITRATE APOLINAR PRN Reason: Protocol Influenza Virus Vaccine (Pharmacy To Dose - Influenza Vaccine) 1 each IM ONETIME ONE Stop: 06/14/17 16:53 Influenza Virus Vaccine (Fluarix Quad [id number]) 60 mcg IM .ONCE ONE Stop: 06/14/17 17:01 Potassium Chloride (Potassium Chloride) 40 meq PO ONETIME ONE Stop: 06/14/17 22:22 Last Admin: 06/14/17 23:12 Dose: Not Given Potassium Chloride (Klor-Con M20) 40 meq PO ONETIME ONE Stop: 06/14/17 23:14 Last Admin: 06/14/17 23:19 Dose: 40 meq - Exam Quality Assessment: DVT Prophylaxis General: Alert, Oriented, No Acute Distress HEENT: Pupils Equal, Pupils Reactive, EOMI, Mucous Membr. Moist/Institute Neck: Supple, Trachea Midline Lungs: Clear to Auscultation, Normal Respiratory Effort Cardiovascular: Regular Rate, Regular Rhythm, No Murmurs GI/Abdominal Exam: Normal Bowel Sounds, Soft, No Organomegaly, No Distention, Tender Back Exam: Normal Inspection Extremities: Normal Inspection, Non-Tender, No Pedal Edema, Normal Capillary Refill Skin: Warm, Dry, Intact Wound/Incisions: Healing Well Neurological: No New Focal Deficit Psy/Mental Status: Alert, Normal Affect, Normal Mood - Problem List & Annotations (1) Abdominal pain SNOMED Code(s): 64942747 Code(s): R10.9 - UNSPECIFIED ABDOMINAL PAIN Status: Acute Priority: High Current Visit: Yes Qualifiers: Abdominal location: epigastric Qualified Code(s): R10.13 - Epigastric pain (2) Pancreatitis SNOMED Code(s): 68912029 Code(s): K85.90 - ACUTE PANCREATITIS WITHOUT NECROSIS OR INFECTION, UNSP Status: Acute Priority: High Current Visit: Yes Qualifiers: Chronicity: acute Pancreatitis type: other Acute pancreatitis complication: no infection or necrosis Qualified Code(s): K85.80 - Other acute pancreatitis without necrosis or infection (3) Hypertriglyceridemia SNOMED Code(s): 953437735 Code(s): E78.1 - PURE HYPERGLYCERIDEMIA Status: Chronic Priority: High Current Visit: Yes - Problem List Review Problem List Initiated/Reviewed/Updated: Yes - My Orders Last 24 Hours: My Active Orders 06/15/17 22:38 Transfer Patient (Change bed) [ADT] Routine 06/17/17 05:00 BASIC METABOLIC PANEL,BMP [CHEM] DAILY 06/18/17 05:00 BASIC METABOLIC PANEL,BMP [CHEM] DAILY CBC WITH AUTO DIFF [HEME] DAILY TRIGLYCERIDES [CHEM] DAILY 06/19/17 05:00 BASIC METABOLIC PANEL,BMP [CHEM] DAILY CBC WITH AUTO DIFF [HEME] DAILY TRIGLYCERIDES [CHEM] DAILY 06/20/17 05:00 BASIC METABOLIC PANEL,BMP [CHEM] DAILY - Plan Plan:: 46 yo male direct admit from Dr. Mc for Hypertryglyceridemia pancreatitis. HTGP: Trgy down to 685 today from 792 will cont. insulin drip at 3 units/hr with D5W at 75 and NS at 200. Once TG less than 500 can d/c Insulin drip. On Lopoid 600 mg BID. Acute pancreatitis without loculated fluid collection seen on CT. DIET: low fat, low carb diet: tolerating well. NO nausea/vomiting Chronic cough: on tessalon. Cough started before started on Losartan. May have component of reflux is so was started on Protonix in house no home PPI previously. VTE: Lovenox 40 mg subq q day Dispo: 2-3 days
[2017-06-16] MEDS: Dextrose 5% in Water 1,000 ML IV SCH (13:45)
[2017-06-16] MEDS: Enoxaparin 40 MG/0.4 ML Syringe SUBCUT SCH (17:08)
[2017-06-16] MEDS ORDERED: Temazepam 15 MG Cap PO PRN (21:39)
[2017-06-16] MEDS ORDERED: Loperamide 2 MG Cap PO PRN (23:36)
[2017-06-17] MEDS: Sodium Chloride 0.9% 1,000 ML IV SCH ×5 (00:45→21:16)
[2017-06-17] MEDS: Dextrose 5% in Water 1,000 ML IV SCH ×2 (04:13→17:42)
[2017-06-17] MEDS: Gemfibrozil 600 MG Tab PO SCH ×2 (06:34→17:43)
[2017-06-17 06:47] LABS: CHLORIDE,CL 107 mmol/L (98-110); SODIUM,NA 136 mmol/L (136-146)
[2017-06-17] MEDS: Pantoprazole 40 MG Vial IV SCH ×2 (08:03→21:13)
--- NOTE | 2017-06-17 11:08 | PCM.PN ---
- General Info Date of Service: 06/17/17 Admission Dx/Problem (Free Text): Admission Diagnosis/Problem Admission Diagnosis/Problem Hypertriglyceridemia pancreatitis Subjective Update: Still having considerable pain but has had progressive improvement. Pain localized to epigastric region. Did have episode of diarrhea last night. C- diff negative. Eating and drinking well. Sleep better last evening with temazepam. Functional Status: Reports: Pain Controlled - Review of Systems General: Denies: Fever, Weakness, Fatigue HEENT: Denies: Headaches, Sinus Congestion Pulmonary: Denies: Shortness of Breath, Hemoptysis, Wheezing Cardiovascular: Denies: Chest Pain, Palpitations Gastrointestinal: Reports: Abdominal Pain, Diarrhea. Denies: Nausea, Vomiting Genitourinary: Denies: Dysuria, Frequency Musculoskeletal: Denies: Neck Pain, Leg Pain Neurological: Denies: Confusion, Dizziness, Headache Psychiatric: Denies: Confusion - Patient Data Vitals - Most Recent: Last Vital Signs Temp 97.2 F 06/17/17 08:00 Pulse 71 06/17/17 08:00 Resp 18 06/17/17 08:00 BP 133/90 06/17/17 08:00 Pulse Ox 98 06/17/17 08:00 Weight - Most Recent: 90.3 kg I&O - Last 24 Hours: Intake & Output 06/16/17 06/17/17 06/17/17 22:59 06:59 14:59 Intake Total 1759 1930 Output Total 1802 350 Balance -43 1580 Lab Results Last 24 Hours: Laboratory Results - last 24 hr 06/16/17 06/16/17 06/16/17 Range/Units 11:12 12:35 13:46 WBC (4.0-11.0) K/uL RBC (4.50-5.90) M/uL Hgb (13.0-17.0) g/dL Hct (38.0-50.0) % MCV (80.0-98.0) fL MCH (27.0-32.0) pg MCHC (31.0-37.0) g/dL RDW Std Deviation (28.0-62.0) fl RDW Coeff of Jessica (11.0-15.0) % Plt Count (150-400) K/uL MPV (7.40-12.00) fL Neut % (Auto) (48.0-80.0) % Lymph % (Auto) (16.0-40.0) % Worth % (Auto) (0.0-15.0) % Eos % (Auto) (0.0-7.0) % Baso % (Auto) (0.0-1.5) % Neut # (Auto) (1.4-5.7) K/uL Lymph # (Auto) (0.6-2.4) K/uL Worth # (Auto) (0.0-0.8) K/uL Eos # (Auto) (0.0-0.7) K/uL Baso # (Auto) (0.0-0.1) K/uL Nucleated RBC % /100WBC Nucleated RBCs # K/uL Sodium (136-146) mmol/L Potassium (3.5-5.1) mmol/L Chloride (98-110) mmol/L Carbon Dioxide (21-31) mmol/L BUN (6.0-23.0) mg/dL Creatinine (0.6-1.5) mg/dL Est Cr Clr Drug Dosing mL/min Estimated GFR (MDRD) ml/min Glucose (60-110) mg/dL POC Glucose 138 H 102 146 H (60-110) mg/dL Calcium (8.8-10.8) mg/dL Triglycerides (10-190) mg/dL Amylase (10-90) U/L Lipase (7-80) U/L 06/16/17 06/16/17 06/16/17 Range/Units 14:34 15:43 16:43 WBC (4.0-11.0) K/uL RBC (4.50-5.90) M/uL Hgb (13.0-17.0) g/dL Hct (38.0-50.0) % MCV (80.0-98.0) fL MCH (27.0-32.0) pg MCHC (31.0-37.0) g/dL RDW Std Deviation (28.0-62.0) fl RDW Coeff of Jessica (11.0-15.0) % Plt Count (150-400) K/uL MPV (7.40-12.00) fL Neut % (Auto) (48.0-80.0) % Lymph % (Auto) (16.0-40.0) % Worth % (Auto) (0.0-15.0) % Eos % (Auto) (0.0-7.0) % Baso % (Auto) (0.0-1.5) % Neut # (Auto) (1.4-5.7) K/uL Lymph # (Auto) (0.6-2.4) K/uL Worth # (Auto) (0.0-0.8) K/uL Eos # (Auto) (0.0-0.7) K/uL Baso # (Auto) (0.0-0.1) K/uL Nucleated RBC % /100WBC Nucleated RBCs # K/uL Sodium (136-146) mmol/L Potassium (3.5-5.1) mmol/L Chloride (98-110) mmol/L Carbon Dioxide (21-31) mmol/L BUN (6.0-23.0) mg/dL Creatinine (0.6-1.5) mg/dL Est Cr Clr Drug Dosing mL/min Estimated GFR (MDRD) ml/min Glucose (60-110) mg/dL POC Glucose 99 116 H 121 H (60-110) mg/dL Calcium (8.8-10.8) mg/dL Triglycerides (10-190) mg/dL Amylase (10-90) U/L Lipase (7-80) U/L 06/16/17 06/16/17 06/16/17 Range/Units 17:37 18:26 19:22 WBC (4.0-11.0) K/uL RBC (4.50-5.90) M/uL Hgb (13.0-17.0) g/dL Hct (38.0-50.0) % MCV (80.0-98.0) fL MCH (27.0-32.0) pg MCHC (31.0-37.0) g/dL RDW Std Deviation (28.0-62.0) fl RDW Coeff of Jessica (11.0-15.0) % Plt Count (150-400) K/uL MPV (7.40-12.00) fL Neut % (Auto) (48.0-80.0) % Lymph % (Auto) (16.0-40.0) % Worth % (Auto) (0.0-15.0) % Eos % (Auto) (0.0-7.0) % Baso % (Auto) (0.0-1.5) % Neut # (Auto) (1.4-5.7) K/uL Lymph # (Auto) (0.6-2.4) K/uL Worth # (Auto) (0.0-0.8) K/uL Eos # (Auto) (0.0-0.7) K/uL Baso # (Auto) (0.0-0.1) K/uL Nucleated RBC % /100WBC Nucleated RBCs # K/uL Sodium (136-146) mmol/L Potassium (3.5-5.1) mmol/L Chloride (98-110) mmol/L Carbon Dioxide (21-31) mmol/L BUN (6.0-23.0) mg/dL Creatinine (0.6-1.5) mg/dL Est Cr Clr Drug Dosing mL/min Estimated GFR (MDRD) ml/min Glucose (60-110) mg/dL POC Glucose 107 156 H 140 H (60-110) mg/dL Calcium (8.8-10.8) mg/dL Triglycerides (10-190) mg/dL Amylase (10-90) U/L Lipase (7-80) U/L 06/16/17 06/16/17 06/16/17 Range/Units 20:53 21:46 22:38 WBC (4.0-11.0) K/uL RBC (4.50-5.90) M/uL Hgb (13.0-17.0) g/dL Hct (38.0-50.0) % MCV (80.0-98.0) fL MCH (27.0-32.0) pg MCHC (31.0-37.0) g/dL RDW Std Deviation (28.0-62.0) fl RDW Coeff of Jessica (11.0-15.0) % Plt Count (150-400) K/uL MPV (7.40-12.00) fL Neut % (Auto) (48.0-80.0) % Lymph % (Auto) (16.0-40.0) % Worth % (Auto) (0.0-15.0) % Eos % (Auto) (0.0-7.0) % Baso % (Auto) (0.0-1.5) % Neut # (Auto) (1.4-5.7) K/uL Lymph # (Auto) (0.6-2.4) K/uL Worth # (Auto) (0.0-0.8) K/uL Eos # (Auto) (0.0-0.7) K/uL Baso # (Auto) (0.0-0.1) K/uL Nucleated RBC % /100WBC Nucleated RBCs # K/uL Sodium (136-146) mmol/L Potassium (3.5-5.1) mmol/L Chloride (98-110) mmol/L Carbon Dioxide (21-31) mmol/L BUN (6.0-23.0) mg/dL Creatinine (0.6-1.5) mg/dL Est Cr Clr Drug Dosing mL/min Estimated GFR (MDRD) ml/min Glucose (60-110) mg/dL POC Glucose 107 102 89 (60-110) mg/dL Calcium (8.8-10.8) mg/dL Triglycerides (10-190) mg/dL Amylase (10-90) U/L Lipase (7-80) U/L 06/16/17 06/17/17 06/17/17 Range/Units 23:30 00:47 01:44 WBC (4.0-11.0) K/uL RBC (4.50-5.90) M/uL Hgb (13.0-17.0) g/dL Hct (38.0-50.0) % MCV (80.0-98.0) fL MCH (27.0-32.0) pg MCHC (31.0-37.0) g/dL RDW Std Deviation (28.0-62.0) fl RDW Coeff of Jessica (11.0-15.0) % Plt Count (150-400) K/uL MPV (7.40-12.00) fL Neut % (Auto) (48.0-80.0) % Lymph % (Auto) (16.0-40.0) % Worth % (Auto) (0.0-15.0) % Eos % (Auto) (0.0-7.0) % Baso % (Auto) (0.0-1.5) % Neut # (Auto) (1.4-5.7) K/uL Lymph # (Auto) (0.6-2.4) K/uL Worth # (Auto) (0.0-0.8) K/uL Eos # (Auto) (0.0-0.7) K/uL Baso # (Auto) (0.0-0.1) K/uL Nucleated RBC % /100WBC Nucleated RBCs # K/uL Sodium (136-146) mmol/L Potassium (3.5-5.1) mmol/L Chloride (98-110) mmol/L Carbon Dioxide (21-31) mmol/L BUN (6.0-23.0) mg/dL Creatinine (0.6-1.5) mg/dL Est Cr Clr Drug Dosing mL/min Estimated GFR (MDRD) ml/min Glucose (60-110) mg/dL POC Glucose 128 H 137 H 260 H (60-110) mg/dL Calcium (8.8-10.8) mg/dL Triglycerides (10-190) mg/dL Amylase (10-90) U/L Lipase (7-80) U/L 06/17/17 06/17/17 06/17/17 Range/Units 02:45 03:47 04:56 WBC (4.0-11.0) K/uL RBC (4.50-5.90) M/uL Hgb (13.0-17.0) g/dL Hct (38.0-50.0) % MCV (80.0-98.0) fL MCH (27.0-32.0) pg MCHC (31.0-37.0) g/dL RDW Std Deviation (28.0-62.0) fl RDW Coeff of Jessica (11.0-15.0) % Plt Count (150-400) K/uL MPV (7.40-12.00) fL Neut % (Auto) (48.0-80.0) % Lymph % (Auto) (16.0-40.0) % Worth % (Auto) (0.0-15.0) % Eos % (Auto) (0.0-7.0) % Baso % (Auto) (0.0-1.5) % Neut # (Auto) (1.4-5.7) K/uL Lymph # (Auto) (0.6-2.4) K/uL Worth # (Auto) (0.0-0.8) K/uL Eos # (Auto) (0.0-0.7) K/uL Baso # (Auto) (0.0-0.1) K/uL Nucleated RBC % /100WBC Nucleated RBCs # K/uL Sodium (136-146) mmol/L Potassium (3.5-5.1) mmol/L Chloride (98-110) mmol/L Carbon Dioxide (21-31) mmol/L BUN (6.0-23.0) mg/dL Creatinine (0.6-1.5) mg/dL Est Cr Clr Drug Dosing mL/min Estimated GFR (MDRD) ml/min Glucose (60-110) mg/dL POC Glucose 123 H 159 H 157 H (60-110) mg/dL Calcium (8.8-10.8) mg/dL Triglycerides (10-190) mg/dL Amylase (10-90) U/L Lipase (7-80) U/L 06/17/17 06/17/17 06/17/17 Range/Units 05:32 06:04 06:04 WBC 4.01 (4.0-11.0) K/uL RBC 4.45 L (4.50-5.90) M/uL Hgb 14.1 (13.0-17.0) g/dL Hct 40.1 (38.0-50.0) % MCV 90.1 (80.0-98.0) fL MCH 31.7 (27.0-32.0) pg MCHC 35.2 (31.0-37.0) g/dL RDW Std Deviation 43.2 (28.0-62.0) fl RDW Coeff of Jessica 13 (11.0-15.0) % Plt Count 176 (150-400) K/uL MPV 11.80 (7.40-12.00) fL Neut % (Auto) 58.6 (48.0-80.0) % Lymph % (Auto) 25.9 (16.0-40.0) % Worth % (Auto) 10.0 (0.0-15.0) % Eos % (Auto) 5.0 (0.0-7.0) % Baso % (Auto) 0.5 (0.0-1.5) % Neut # (Auto) 2.4 (1.4-5.7) K/uL Lymph # (Auto) 1.0 (0.6-2.4) K/uL Worth # (Auto) 0.4 (0.0-0.8) K/uL Eos # (Auto) 0.2 (0.0-0.7) K/uL Baso # (Auto) 0.0 (0.0-0.1) K/uL Nucleated RBC % 0.0 /100WBC Nucleated RBCs # 0 K/uL Sodium (136-146) mmol/L Potassium (3.5-5.1) mmol/L Chloride (98-110) mmol/L Carbon Dioxide (21-31) mmol/L BUN (6.0-23.0) mg/dL Creatinine (0.6-1.5) mg/dL Est Cr Clr Drug Dosing mL/min Estimated GFR (MDRD) ml/min Glucose (60-110) mg/dL POC Glucose 164 H (60-110) mg/dL Calcium (8.8-10.8) mg/dL Triglycerides 641 H (10-190) mg/dL Amylase 41 (10-90) U/L Lipase 33 (7-80) U/L 06/17/17 06/17/17 Range/Units 06:04 06:06 WBC (4.0-11.0) K/uL RBC (4.50-5.90) M/uL Hgb (13.0-17.0) g/dL Hct (38.0-50.0) % MCV (80.0-98.0) fL MCH (27.0-32.0) pg MCHC (31.0-37.0) g/dL RDW Std Deviation (28.0-62.0) fl RDW Coeff of Jessica (11.0-15.0) % Plt Count (150-400) K/uL MPV (7.40-12.00) fL Neut % (Auto) (48.0-80.0) % Lymph % (Auto) (16.0-40.0) % Worth % (Auto) (0.0-15.0) % Eos % (Auto) (0.0-7.0) % Baso % (Auto) (0.0-1.5) % Neut # (Auto) (1.4-5.7) K/uL Lymph # (Auto) (0.6-2.4) K/uL Worth # (Auto) (0.0-0.8) K/uL Eos # (Auto) (0.0-0.7) K/uL Baso # (Auto) (0.0-0.1) K/uL Nucleated RBC % /100WBC Nucleated RBCs # K/uL Sodium 136 (136-146) mmol/L Potassium 4.5 (3.5-5.1) mmol/L Chloride 107 (98-110) mmol/L Carbon Dioxide 19 L (21-31) mmol/L BUN 11 (6.0-23.0) mg/dL Creatinine 0.8 (0.6-1.5) mg/dL Est Cr Clr Drug Dosing 105.76 mL/min Estimated GFR (MDRD) > 60.0 ml/min Glucose 185 H (60-110) mg/dL POC Glucose 159 H (60-110) mg/dL Calcium 8.8 (8.8-10.8) mg/dL Triglycerides (10-190) mg/dL Amylase (10-90) U/L Lipase (7-80) U/L [place] Results Last 24 Hours: Microbiology 06/16/17 20:30 Clostridium difficile Toxin A&B (M) - Final Stool / Feces Negative for C.Diff Toxin/AG Med Orders - Current: Current Medications Benzonatate (Tessalon Perles) 200 mg PO TID PRN PRN Reason: Cough Last Admin: 06/15/17 14:08 Dose: 200 mg Enoxaparin Sodium (Lovenox) 40 mg SUBCUT Q24H [facility] Last Admin: 06/16/17 17:08 Dose: 40 mg Gemfibrozil (Lopid) 600 mg PO BIDAC [facility] Last Admin: 06/17/17 06:34 Dose: 600 mg Hydromorphone HCl (Dilaudid Brake Rider 6 Mg In Ns 30 Ml) 6 mg IV ASDIRECTED [facility] PRN Reason: Protocol Last Admin: 06/16/17 22:42 Dose: 6 mg Dextrose/Water (Dextrose 5% In Water) 1,000 mls @ 75 mls/hr IV ASDIRECTED [facility] Last Admin: 06/17/17 04:13 Dose: 75 mls/hr Insulin Human Regular 100 unit (/ Sodium Chloride) 100 mls @ 3 mls/hr IV ASDIRECTED [facility] PRN Reason: Protocol Last Admin: 06/16/17 23:29 Dose: 3 unit/hr, 3 mls/hr Sodium Chloride (Normal Saline) 1,000 mls @ 200 mls/hr IV ASDIRECTED [facility] Last Admin: 06/17/17 10:38 Dose: 200 mls/hr Loperamide HCl (Imodium) 2 mg PO Q4H PRN PRN Reason: Diarrhea Last Admin: 06/17/17 06:36 Dose: 2 mg Pantoprazole Sodium (Protonix Iv) 40 mg IV Q12HR [facility] Last Admin: 06/17/17 08:03 Dose: 40 mg Sodium Chloride (Saline Flush) 2.5 ml FLUSH ASDIRECTED PRN PRN Reason: Keep Vein Open Temazepam (Restoril) 15 mg PO BEDTIME PRN PRN Reason: Insomnia Last Admin: 06/16/17 22:20 Dose: 15 mg Discontinued Medications Hydromorphone HCl (Dilaudid) 1 mg IVPUSH ONETIME ONE Stop: 06/15/17 05:46 Last Admin: 06/15/17 05:56 Dose: 1 mg Sodium Chloride (Normal Saline) 1,000 mls @ 200 mls/hr IV ASDIRECTED [facility] Last Admin: 06/14/17 18:58 Dose: 200 mls/hr Sodium Chloride (Normal Saline) 1,000 mls @ 999 mls/hr IV .BOLUS [facility] Last Admin: 06/14/17 17:54 Dose: 999 mls/hr Insulin Human Regular 100 unit (/ Sodium Chloride) 100 mls @ 2 mls/hr IV TITRATE [facility] PRN Reason: Protocol Influenza Virus Vaccine (Pharmacy To Dose - Influenza Vaccine) 1 each IM ONETIME ONE Stop: 06/14/17 16:53 Influenza Virus Vaccine (Fluarix Quad [id number]) 60 mcg IM .ONCE ONE Stop: 06/14/17 17:01 Last Admin: 06/16/17 12:30 Dose: 60 mcg Potassium Chloride (Potassium Chloride) 40 meq PO ONETIME ONE Stop: 06/14/17 22:22 Last Admin: 06/14/17 23:12 Dose: Not Given Potassium Chloride (Klor-Con M20) 40 meq PO ONETIME ONE Stop: 06/14/17 23:14 Last Admin: 06/14/17 23:19 Dose: 40 meq - Exam Quality Assessment: DVT Prophylaxis General: Alert, Oriented, Cooperative, No Acute Distress HEENT: Pupils Equal, Pupils Reactive, EOMI, Mucous Membr. Moist/[place] Neck: Supple, Trachea Midline Lungs: Clear to Auscultation, Normal Respiratory Effort Cardiovascular: Regular Rate, Regular Rhythm GI/Abdominal Exam: Normal Bowel Sounds, Soft, No Organomegaly, No Distention, Tender (epigastric) (Male) Exam: Circumcised Back Exam: Normal Inspection, Full Range of Motion Extremities: Normal Inspection, Normal Range of Motion, Non-Tender, No Pedal Edema, Normal Capillary Refill Peripheral Pulses: 2+: Radial (L), Radial (R), Posterior Tibial (L), Posterior Tibial (R), Dorsalis Pedis (L), Dorsalis Pedis (R) Skin: Warm, Dry, Intact Neurological: No New Focal Deficit Psy/Mental Status: Alert, Normal Affect, Normal Mood - Problem List & Annotations (1) Abdominal pain SNOMED Code(s): 99104124 Code(s): R10.9 - UNSPECIFIED ABDOMINAL PAIN Status: Acute Priority: High Current Visit: Yes Qualifiers: Abdominal location: epigastric Qualified Code(s): R10.13 - Epigastric pain (2) Pancreatitis SNOMED Code(s): 36929811 Code(s): K85.90 - ACUTE PANCREATITIS WITHOUT NECROSIS OR INFECTION, UNSP Status: Acute Priority: High Current Visit: Yes Qualifiers: Chronicity: acute Pancreatitis type: other Acute pancreatitis complication: no infection or necrosis Qualified Code(s): K85.80 - Other acute pancreatitis without necrosis or infection (3) Hypertriglyceridemia SNOMED Code(s): 767381518 Code(s): E78.1 - PURE HYPERGLYCERIDEMIA Status: Chronic Priority: High Current Visit: Yes - Problem List Review Problem List Initiated/Reviewed/Updated: Yes - My Orders Last 24 Hours: My Active Orders 06/16/17 21:39 Temazepam [Restoril] 15 mg PO BEDTIME PRN 06/16/17 23:36 Loperamide [Imodium] 2 mg PO Q4H PRN 06/18/17 05:00 BASIC METABOLIC PANEL,BMP [CHEM] DAILY CBC WITH AUTO DIFF [HEME] DAILY TRIGLYCERIDES [CHEM] DAILY 06/19/17 05:00 BASIC METABOLIC PANEL,BMP [CHEM] DAILY CBC WITH AUTO DIFF [HEME] DAILY TRIGLYCERIDES [CHEM] DAILY 06/20/17 05:00 BASIC METABOLIC PANEL,BMP [CHEM] DAILY - Plan Plan:: 46 yo male direct admit from Dr. Mc for Hypertryglyceridemia pancreatitis. HTGP: Trgy down to 641 today from 682 will cont. insulin drip at 3 units/hr with D5W at 75 and NS at 200. Once TG less than 500 can d/c Insulin drip. On Lopoid 600 mg BID. Acute pancreatitis without loculated fluid collection seen on CT. DIET: low fat, low carb diet: tolerating well. NO nausea/vomiting Chronic cough: on tessalon. May have component of reflux. On protonix, no home PPI previously. VTE: Lovenox 40 mg subq q day Dispo: 2-3 days
[2017-06-17] MEDS: Enoxaparin 40 MG/0.4 ML Syringe SUBCUT SCH (17:43)
[2017-06-18] MEDS: Sodium Chloride 0.9% 1,000 ML IV SCH ×4 (02:52→20:44)
[2017-06-18] MEDS: Gemfibrozil 600 MG Tab PO SCH ×2 (06:29→16:44)
[2017-06-18] MEDS: Dextrose 5% in Water 1,000 ML IV SCH (06:30)
[2017-06-18 06:40] LABS: CHLORIDE,CL 111 mmol/L (98-110); SODIUM,NA 138 mmol/L (136-146)
[2017-06-18] MEDS: Pantoprazole 40 MG Vial IV SCH ×2 (08:25→20:35)
[2017-06-18] MEDS: Insulin Glargine,Human Rec. Analog 100 Units/ML 3 ML Pen SUBCUT SCH ×2 (09:23→20:34)
--- NOTE | 2017-06-18 09:44 | PCM.PN ---
- General Info Date of Service: 06/18/17 Functional Status: Reports: Pain Controlled, Tolerating Diet - Review of Systems General: Reports: No Symptoms HEENT: Reports: No Symptoms Pulmonary: Reports: No Symptoms Cardiovascular: Reports: No Symptoms Gastrointestinal: Reports: Abdominal Pain, Other (improving) Genitourinary: Reports: No Symptoms Musculoskeletal: Reports: No Symptoms Skin: Reports: No Symptoms Neurological: Reports: No Symptoms Psychiatric: Reports: No Symptoms - Patient Data Vitals - Most Recent: Last Vital Signs Temp 97.0 F 06/18/17 08:00 Pulse 78 06/18/17 08:00 Resp 20 06/18/17 08:00 BP 129/76 06/18/17 08:00 Pulse Ox 95 06/18/17 08:00 Weight - Most Recent: 89.494 kg I&O - Last 24 Hours: Intake & Output 06/17/17 06/18/17 06/18/17 22:59 06:59 14:59 Intake Total 3555 1999 Output Total 1230 Balance 2325 1999 Lab Results Last 24 Hours: Laboratory Results - last 24 hr 06/17/17 06/17/17 06/17/17 Range/Units 07:02 08:12 09:42 WBC (4.0-11.0) K/uL RBC (4.50-5.90) M/uL Hgb (13.0-17.0) g/dL Hct (38.0-50.0) % MCV (80.0-98.0) fL MCH (27.0-32.0) pg MCHC (31.0-37.0) g/dL RDW Std Deviation (28.0-62.0) fl RDW Coeff of Jessica (11.0-15.0) % Plt Count (150-400) K/uL MPV (7.40-12.00) fL Neut % (Auto) (48.0-80.0) % Lymph % (Auto) (16.0-40.0) % [place] % (Auto) (0.0-15.0) % Eos % (Auto) (0.0-7.0) % Baso % (Auto) (0.0-1.5) % Neut # (Auto) (1.4-5.7) K/uL Lymph # (Auto) (0.6-2.4) K/uL [place] # (Auto) (0.0-0.8) K/uL Eos # (Auto) (0.0-0.7) K/uL Baso # (Auto) (0.0-0.1) K/uL Nucleated RBC % /100WBC Nucleated RBCs # K/uL Sodium (136-146) mmol/L Potassium (3.5-5.1) mmol/L Chloride (98-110) mmol/L Carbon Dioxide (21-31) mmol/L BUN (6.0-23.0) mg/dL Creatinine (0.6-1.5) mg/dL Est Cr Clr Drug Dosing mL/min Estimated GFR (MDRD) ml/min Glucose (60-110) mg/dL POC Glucose 175 H 152 H 156 H (60-110) mg/dL Calcium (8.8-10.8) mg/dL Triglycerides (10-190) mg/dL 06/17/17 06/17/17 06/17/17 Range/Units 10:35 11:35 12:49 WBC (4.0-11.0) K/uL RBC (4.50-5.90) M/uL Hgb (13.0-17.0) g/dL Hct (38.0-50.0) % MCV (80.0-98.0) fL MCH (27.0-32.0) pg MCHC (31.0-37.0) g/dL RDW Std Deviation (28.0-62.0) fl RDW Coeff of Jessica (11.0-15.0) % Plt Count (150-400) K/uL MPV (7.40-12.00) fL Neut % (Auto) (48.0-80.0) % Lymph % (Auto) (16.0-40.0) % [place] % (Auto) (0.0-15.0) % Eos % (Auto) (0.0-7.0) % Baso % (Auto) (0.0-1.5) % Neut # (Auto) (1.4-5.7) K/uL Lymph # (Auto) (0.6-2.4) K/uL [place] # (Auto) (0.0-0.8) K/uL Eos # (Auto) (0.0-0.7) K/uL Baso # (Auto) (0.0-0.1) K/uL Nucleated RBC % /100WBC Nucleated RBCs # K/uL Sodium (136-146) mmol/L Potassium (3.5-5.1) mmol/L Chloride (98-110) mmol/L Carbon Dioxide (21-31) mmol/L BUN (6.0-23.0) mg/dL Creatinine (0.6-1.5) mg/dL Est Cr Clr Drug Dosing mL/min Estimated GFR (MDRD) ml/min Glucose (60-110) mg/dL POC Glucose 152 H 143 H 113 H (60-110) mg/dL Calcium (8.8-10.8) mg/dL Triglycerides (10-190) mg/dL 06/17/17 06/17/17 06/17/17 Range/Units 13:54 14:32 15:41 WBC (4.0-11.0) K/uL RBC (4.50-5.90) M/uL Hgb (13.0-17.0) g/dL Hct (38.0-50.0) % MCV (80.0-98.0) fL MCH (27.0-32.0) pg MCHC (31.0-37.0) g/dL RDW Std Deviation (28.0-62.0) fl RDW Coeff of Jessica (11.0-15.0) % Plt Count (150-400) K/uL MPV (7.40-12.00) fL Neut % (Auto) (48.0-80.0) % Lymph % (Auto) (16.0-40.0) % [place] % (Auto) (0.0-15.0) % Eos % (Auto) (0.0-7.0) % Baso % (Auto) (0.0-1.5) % Neut # (Auto) (1.4-5.7) K/uL Lymph # (Auto) (0.6-2.4) K/uL [place] # (Auto) (0.0-0.8) K/uL Eos # (Auto) (0.0-0.7) K/uL Baso # (Auto) (0.0-0.1) K/uL Nucleated RBC % /100WBC Nucleated RBCs # K/uL Sodium (136-146) mmol/L Potassium (3.5-5.1) mmol/L Chloride (98-110) mmol/L Carbon Dioxide (21-31) mmol/L BUN (6.0-23.0) mg/dL Creatinine (0.6-1.5) mg/dL Est Cr Clr Drug Dosing mL/min Estimated GFR (MDRD) ml/min Glucose (60-110) mg/dL POC Glucose 123 H 112 H 95 (60-110) mg/dL Calcium (8.8-10.8) mg/dL Triglycerides (10-190) mg/dL 06/17/17 06/17/17 06/17/17 Range/Units 16:50 17:41 18:40 WBC (4.0-11.0) K/uL RBC (4.50-5.90) M/uL Hgb (13.0-17.0) g/dL Hct (38.0-50.0) % MCV (80.0-98.0) fL MCH (27.0-32.0) pg MCHC (31.0-37.0) g/dL RDW Std Deviation (28.0-62.0) fl RDW Coeff of Jessica (11.0-15.0) % Plt Count (150-400) K/uL MPV (7.40-12.00) fL Neut % (Auto) (48.0-80.0) % Lymph % (Auto) (16.0-40.0) % [place] % (Auto) (0.0-15.0) % Eos % (Auto) (0.0-7.0) % Baso % (Auto) (0.0-1.5) % Neut # (Auto) (1.4-5.7) K/uL Lymph # (Auto) (0.6-2.4) K/uL [place] # (Auto) (0.0-0.8) K/uL Eos # (Auto) (0.0-0.7) K/uL Baso # (Auto) (0.0-0.1) K/uL Nucleated RBC % /100WBC Nucleated RBCs # K/uL Sodium (136-146) mmol/L Potassium (3.5-5.1) mmol/L Chloride (98-110) mmol/L Carbon Dioxide (21-31) mmol/L BUN (6.0-23.0) mg/dL Creatinine (0.6-1.5) mg/dL Est Cr Clr Drug Dosing mL/min Estimated GFR (MDRD) ml/min Glucose (60-110) mg/dL POC Glucose 152 H 151 H 147 H (60-110) mg/dL Calcium (8.8-10.8) mg/dL Triglycerides (10-190) mg/dL 06/17/17 06/17/17 06/17/17 Range/Units 19:14 20:17 21:22 WBC (4.0-11.0) K/uL RBC (4.50-5.90) M/uL Hgb (13.0-17.0) g/dL Hct (38.0-50.0) % MCV (80.0-98.0) fL MCH (27.0-32.0) pg MCHC (31.0-37.0) g/dL RDW Std Deviation (28.0-62.0) fl RDW Coeff of Jessica (11.0-15.0) % Plt Count (150-400) K/uL MPV (7.40-12.00) fL Neut % (Auto) (48.0-80.0) % Lymph % (Auto) (16.0-40.0) % [place] % (Auto) (0.0-15.0) % Eos % (Auto) (0.0-7.0) % Baso % (Auto) (0.0-1.5) % Neut # (Auto) (1.4-5.7) K/uL Lymph # (Auto) (0.6-2.4) K/uL [place] # (Auto) (0.0-0.8) K/uL Eos # (Auto) (0.0-0.7) K/uL Baso # (Auto) (0.0-0.1) K/uL Nucleated RBC % /100WBC Nucleated RBCs # K/uL Sodium (136-146) mmol/L Potassium (3.5-5.1) mmol/L Chloride (98-110) mmol/L Carbon Dioxide (21-31) mmol/L BUN (6.0-23.0) mg/dL Creatinine (0.6-1.5) mg/dL Est Cr Clr Drug Dosing mL/min Estimated GFR (MDRD) ml/min Glucose (60-110) mg/dL POC Glucose 166 H 110 106 (60-110) mg/dL Calcium (8.8-10.8) mg/dL Triglycerides (10-190) mg/dL 06/17/17 06/17/17 06/18/17 Range/Units 22:22 23:17 00:27 WBC (4.0-11.0) K/uL RBC (4.50-5.90) M/uL Hgb (13.0-17.0) g/dL Hct (38.0-50.0) % MCV (80.0-98.0) fL MCH (27.0-32.0) pg MCHC (31.0-37.0) g/dL RDW Std Deviation (28.0-62.0) fl RDW Coeff of Jessica (11.0-15.0) % Plt Count (150-400) K/uL MPV (7.40-12.00) fL Neut % (Auto) (48.0-80.0) % Lymph % (Auto) (16.0-40.0) % [place] % (Auto) (0.0-15.0) % Eos % (Auto) (0.0-7.0) % Baso % (Auto) (0.0-1.5) % Neut # (Auto) (1.4-5.7) K/uL Lymph # (Auto) (0.6-2.4) K/uL [place] # (Auto) (0.0-0.8) K/uL Eos # (Auto) (0.0-0.7) K/uL Baso # (Auto) (0.0-0.1) K/uL Nucleated RBC % /100WBC Nucleated RBCs # K/uL Sodium (136-146) mmol/L Potassium (3.5-5.1) mmol/L Chloride (98-110) mmol/L Carbon Dioxide (21-31) mmol/L BUN (6.0-23.0) mg/dL Creatinine (0.6-1.5) mg/dL Est Cr Clr Drug Dosing mL/min Estimated GFR (MDRD) ml/min Glucose (60-110) mg/dL POC Glucose 116 H 139 H 105 (60-110) mg/dL Calcium (8.8-10.8) mg/dL Triglycerides (10-190) mg/dL 06/18/17 06/18/17 06/18/17 Range/Units 01:21 02:24 03:45 WBC (4.0-11.0) K/uL RBC (4.50-5.90) M/uL Hgb (13.0-17.0) g/dL Hct (38.0-50.0) % MCV (80.0-98.0) fL MCH (27.0-32.0) pg MCHC (31.0-37.0) g/dL RDW Std Deviation (28.0-62.0) fl RDW Coeff of Jessica (11.0-15.0) % Plt Count (150-400) K/uL MPV (7.40-12.00) fL Neut % (Auto) (48.0-80.0) % Lymph % (Auto) (16.0-40.0) % [place] % (Auto) (0.0-15.0) % Eos % (Auto) (0.0-7.0) % Baso % (Auto) (0.0-1.5) % Neut # (Auto) (1.4-5.7) K/uL Lymph # (Auto) (0.6-2.4) K/uL [place] # (Auto) (0.0-0.8) K/uL Eos # (Auto) (0.0-0.7) K/uL Baso # (Auto) (0.0-0.1) K/uL Nucleated RBC % /100WBC Nucleated RBCs # K/uL Sodium (136-146) mmol/L Potassium (3.5-5.1) mmol/L Chloride (98-110) mmol/L Carbon Dioxide (21-31) mmol/L BUN (6.0-23.0) mg/dL Creatinine (0.6-1.5) mg/dL Est Cr Clr Drug Dosing mL/min Estimated GFR (MDRD) ml/min Glucose (60-110) mg/dL POC Glucose 111 H 118 H 95 (60-110) mg/dL Calcium (8.8-10.8) mg/dL Triglycerides (10-190) mg/dL 06/18/17 06/18/17 06/18/17 Range/Units 04:26 05:20 06:14 WBC (4.0-11.0) K/uL RBC (4.50-5.90) M/uL Hgb (13.0-17.0) g/dL Hct (38.0-50.0) % MCV (80.0-98.0) fL MCH (27.0-32.0) pg MCHC (31.0-37.0) g/dL RDW Std Deviation (28.0-62.0) fl RDW Coeff of Jessica (11.0-15.0) % Plt Count (150-400) K/uL MPV (7.40-12.00) fL Neut % (Auto) (48.0-80.0) % Lymph % (Auto) (16.0-40.0) % [place] % (Auto) (0.0-15.0) % Eos % (Auto) (0.0-7.0) % Baso % (Auto) (0.0-1.5) % Neut # (Auto) (1.4-5.7) K/uL Lymph # (Auto) (0.6-2.4) K/uL [place] # (Auto) (0.0-0.8) K/uL Eos # (Auto) (0.0-0.7) K/uL Baso # (Auto) (0.0-0.1) K/uL Nucleated RBC % /100WBC Nucleated RBCs # K/uL Sodium 138 (136-146) mmol/L Potassium 3.9 (3.5-5.1) mmol/L Chloride 111 H (98-110) mmol/L Carbon Dioxide 21 (21-31) mmol/L BUN 10 (6.0-23.0) mg/dL Creatinine 0.7 (0.6-1.5) mg/dL Est Cr Clr Drug Dosing 120.87 mL/min Estimated GFR (MDRD) > 60.0 ml/min Glucose 91 (60-110) mg/dL POC Glucose 81 83 (60-110) mg/dL Calcium 8.7 L (8.8-10.8) mg/dL Triglycerides 402 H (10-190) mg/dL 06/18/17 06/18/17 06/18/17 Range/Units 06:14 06:14 07:27 WBC 3.23 L (4.0-11.0) K/uL RBC 4.58 (4.50-5.90) M/uL Hgb 13.9 (13.0-17.0) g/dL Hct 40.2 (38.0-50.0) % MCV 87.8 (80.0-98.0) fL MCH 30.3 (27.0-32.0) pg MCHC 34.6 (31.0-37.0) g/dL RDW Std Deviation 40.7 (28.0-62.0) fl RDW Coeff of Jessica 13 (11.0-15.0) % Plt Count 145 L (150-400) K/uL MPV 11.40 (7.40-12.00) fL Neut % (Auto) 40.3 L (48.0-80.0) % Lymph % (Auto) 42.1 H (16.0-40.0) % [place] % (Auto) 11.1 (0.0-15.0) % Eos % (Auto) 5.9 (0.0-7.0) % Baso % (Auto) 0.6 (0.0-1.5) % Neut # (Auto) 1.3 L (1.4-5.7) K/uL Lymph # (Auto) 1.4 (0.6-2.4) K/uL [place] # (Auto) 0.4 (0.0-0.8) K/uL Eos # (Auto) 0.2 (0.0-0.7) K/uL Baso # (Auto) 0.0 (0.0-0.1) K/uL Nucleated RBC % 0.0 /100WBC Nucleated RBCs # 0 K/uL Sodium (136-146) mmol/L Potassium (3.5-5.1) mmol/L Chloride (98-110) mmol/L Carbon Dioxide (21-31) mmol/L BUN (6.0-23.0) mg/dL Creatinine (0.6-1.5) mg/dL Est Cr Clr Drug Dosing mL/min Estimated GFR (MDRD) ml/min Glucose (60-110) mg/dL POC Glucose 71 83 (60-110) mg/dL Calcium (8.8-10.8) mg/dL Triglycerides (10-190) mg/dL 06/18/17 Range/Units 08:37 WBC (4.0-11.0) K/uL RBC (4.50-5.90) M/uL Hgb (13.0-17.0) g/dL Hct (38.0-50.0) % MCV (80.0-98.0) fL MCH (27.0-32.0) pg MCHC (31.0-37.0) g/dL RDW Std Deviation (28.0-62.0) fl RDW Coeff of Jessica (11.0-15.0) % Plt Count (150-400) K/uL MPV (7.40-12.00) fL Neut % (Auto) (48.0-80.0) % Lymph % (Auto) (16.0-40.0) % [place] % (Auto) (0.0-15.0) % Eos % (Auto) (0.0-7.0) % Baso % (Auto) (0.0-1.5) % Neut # (Auto) (1.4-5.7) K/uL Lymph # (Auto) (0.6-2.4) K/uL [place] # (Auto) (0.0-0.8) K/uL Eos # (Auto) (0.0-0.7) K/uL Baso # (Auto) (0.0-0.1) K/uL Nucleated RBC % /100WBC Nucleated RBCs # K/uL Sodium (136-146) mmol/L Potassium (3.5-5.1) mmol/L Chloride (98-110) mmol/L Carbon Dioxide (21-31) mmol/L BUN (6.0-23.0) mg/dL Creatinine (0.6-1.5) mg/dL Est Cr Clr Drug Dosing mL/min Estimated GFR (MDRD) ml/min Glucose (60-110) mg/dL POC Glucose 105 (60-110) mg/dL Calcium (8.8-10.8) mg/dL Triglycerides (10-190) mg/dL Med Orders - Current: Current Medications Benzonatate (Tessalon Perles) 200 mg PO TID PRN PRN Reason: Cough Last Admin: 06/15/17 14:08 Dose: 200 mg Enoxaparin Sodium (Lovenox) 40 mg SUBCUT Q24H [facility] Last Admin: 06/17/17 17:43 Dose: 40 mg Gemfibrozil (Lopid) 600 mg PO BIDAC [facility] Last Admin: 06/18/17 06:29 Dose: 600 mg Hydromorphone HCl (Dilaudid Half Backer 6 Mg In Ns 30 Ml) 6 mg IV ASDIRECTED [facility] PRN Reason: Protocol Last Admin: 06/16/17 22:42 Dose: 6 mg Sodium Chloride (Normal Saline) 1,000 mls @ 150 mls/hr IV ASDIRECTED [facility] Last Admin: 06/18/17 08:04 Dose: 200 mls/hr Insulin Aspart (Novolog) 0 unit SUBCUT ACBED [facility] PRN Reason: Protocol Insulin Glargine (Lantus Solostar) 20 units SUBCUT BID [facility] Last Admin: 06/18/17 09:23 Dose: 20 units Loperamide HCl (Imodium) 2 mg PO Q4H PRN PRN Reason: Diarrhea Last Admin: 06/17/17 06:36 Dose: 2 mg Pantoprazole Sodium (Protonix Iv) 40 mg IV Q12HR [facility] Last Admin: 06/18/17 08:25 Dose: 40 mg Sodium Chloride (Saline Flush) 2.5 ml FLUSH ASDIRECTED PRN PRN Reason: Keep Vein Open Temazepam (Restoril) 15 mg PO BEDTIME PRN PRN Reason: Insomnia Last Admin: 06/16/17 22:20 Dose: 15 mg Discontinued Medications Hydromorphone HCl (Dilaudid) 1 mg IVPUSH ONETIME ONE Stop: 06/15/17 05:46 Last Admin: 06/15/17 05:56 Dose: 1 mg Sodium Chloride (Normal Saline) 1,000 mls @ 200 mls/hr IV ASDIRECTED [facility] Last Admin: 06/14/17 18:58 Dose: 200 mls/hr Sodium Chloride (Normal Saline) 1,000 mls @ 999 mls/hr IV .BOLUS [facility] Last Admin: 06/14/17 17:54 Dose: 999 mls/hr Insulin Human Regular 100 unit (/ Sodium Chloride) 100 mls @ 2 mls/hr IV TITRATE [facility] PRN Reason: Protocol Dextrose/Water (Dextrose 5% In Water) 1,000 mls @ 75 mls/hr IV ASDIRECTED [facility] Last Admin: 06/18/17 06:30 Dose: 75 mls/hr Insulin Human Regular 100 unit (/ Sodium Chloride) 100 mls @ 3 mls/hr IV ASDIRECTED [facility] PRN Reason: Protocol Last Admin: 06/16/17 23:29 Dose: 3 unit/hr, 3 mls/hr Influenza Virus Vaccine (Pharmacy To Dose - Influenza Vaccine) 1 each IM ONETIME ONE Stop: 06/14/17 16:53 Influenza Virus Vaccine (Fluarix Quad 5502-6911) 60 mcg IM .ONCE ONE Stop: 06/14/17 17:01 Last Admin: 06/16/17 12:30 Dose: 60 mcg Potassium Chloride (Potassium Chloride) 40 meq PO ONETIME ONE Stop: 06/14/17 22:22 Last Admin: 06/14/17 23:12 Dose: Not Given Potassium Chloride (Klor-Con M20) 40 meq PO ONETIME ONE Stop: 06/14/17 23:14 Last Admin: 06/14/17 23:19 Dose: 40 meq - Exam General: Alert, Oriented HEENT: Pupils Equal, EOMI Neck: Supple, Trachea Midline Lungs: Clear to Auscultation, Normal Respiratory Effort Cardiovascular: Regular Rate, Regular Rhythm GI/Abdominal Exam: Normal Bowel Sounds, Tender (improved) Back Exam: Normal Inspection Extremities: Normal Inspection - Problem List Review Problem List Initiated/Reviewed/Updated: Yes - Plan Plan:: 46 yo male direct admit from Dr. Mc for Hypertryglyceridemia pancreatitis. HTGP: 402 Triglyceride. DC I.V insulin and dextrose. resume home lantus and ISS DIET: low fat, low carb diet: tolerating well. NO nausea/vomiting Chronic cough: on tessalon. May have component of reflux. On protonix, no home PPI previously. VTE: Lovenox 40 mg subq q day Dispo: 2-3 days
[2017-06-18] MEDS: Insulin Aspart 100 Units/ML 3 ML Pen SUBCUT SCH ×3 (11:44→20:35)
[2017-06-18] MEDS: HYDROmorphone/Normal Saline 6 MG/30 ML PCA Vial IV SCH (13:51)
[2017-06-18] MEDS: Enoxaparin 40 MG/0.4 ML Syringe SUBCUT SCH (17:26)
[2017-06-19] MEDS: HYDROmorphone/Normal Saline 6 MG/30 ML PCA Vial IV SCH (03:27)
[2017-06-19 05:57] LABS: CHLORIDE,CL 109 mmol/L (98-110); SODIUM,NA 138 mmol/L (136-146)
[2017-06-19] MEDS: Insulin Aspart 100 Units/ML 3 ML Pen SUBCUT SCH ×2 (07:17→12:59)
[2017-06-19] MEDS: Gemfibrozil 600 MG Tab PO SCH (07:27)
[2017-06-19] MEDS: Pantoprazole 40 MG Vial IV SCH (08:19)
[2017-06-19] MEDS: Insulin Glargine,Human Rec. Analog 100 Units/ML 3 ML Pen SUBCUT SCH (08:19)
[2017-06-19] MEDS: Sodium Chloride 0.9% 1,000 ML IV SCH (09:57)
[2017-06-19 10:42] VITALS: BP 108/70
--- NOTE | 2017-06-19 10:49 | PCM.DCSUM1 ---
Discharge Summary - Hospital Course Free Text/Narrative:: 46 yo male with history of DM type 1 and familial hypertriglyerdemia admitted from clinic for acute pancreatitis. His triglycerides 975. He was placed in ICU with IV regular insulin along with dextrose. Pain was controlled with [employer] pump. Abdominal CT showed acute pancreatits. He was placed on low carb and low fat diet due to hypoglycemia with IV regular insulin and dextrose. . He was started on lopoid. His pain has improved. He was transferred to floor. He clinically improved and discharged with lopoid and to resume home medications. [place] was given for pain control. He is to follow up PCP within a week. - Discharge Data Discharge Date: 06/19/17 Discharge Disposition: Home, Self-Care 01 Condition: Good - Patient Instructions Diet: Diabetic Diet Activity: As Tolerated Driving: Do Not Drive Showering/Bathing: May Shower Notify Provider of: Fever, Increased Pain, Swelling and Redness, Drainage, Nausea and/or Vomiting Other/Special Instructions: LOW FAT AND LOW CARB DIET - Discharge Plan Prescriptions/Med Rec: oxyCODONE HCl/Acetaminophen [Percocet 5-325 mg Tablet] 1 each PO Q6HR #20 tablet Home Medications: Home Meds Benzonatate [Tessalon Perles] 100 mg PO TID PRN #60 cap 11/22/16 [Rx] Cyclobenzaprine HCl 10 mg PO BID PRN 06/14/17 [History] Gemfibrozil [Lopid] 600 mg PO BID 06/14/17 [History] Insulin Glarg,Human.Rec.Analog [LantUS Solostar] 20 units SUBCUT BID 06/14/17 [ History] Losartan Potassium 25 mg PO DAILY 06/14/17 [History] traMADol HCl [Tramadol HCl] 50 mg PO BID PRN 06/14/17 [History] oxyCODONE HCl/Acetaminophen [Percocet 5-325 mg Tablet] 1 each PO Q6HR #20 tablet 06/19/17 [Rx] Patient Handouts: Acetaminophen; Oxycodone tablets, Dyslipidemia, Acute Pancreatitis Referrals: Luis Fernando Landeros DO [Physician] - 06/21/17 11:30 am - General Info Date of Service: 06/19/17 Functional Status: Reports: Pain Controlled, Tolerating Diet - Review of Systems General: Reports: No Symptoms HEENT: Reports: No Symptoms Pulmonary: Reports: No Symptoms Cardiovascular: Reports: No Symptoms Gastrointestinal: Reports: No Symptoms Genitourinary: Reports: No Symptoms Musculoskeletal: Reports: No Symptoms Skin: Reports: No Symptoms Neurological: Reports: No Symptoms Psychiatric: Reports: No Symptoms - Patient Data Vitals - Most Recent: Last Vital Signs Temp 97.0 F 06/19/17 08:00 Pulse 80 06/19/17 08:00 Resp 16 06/19/17 08:00 BP 108/70 06/19/17 08:00 Pulse Ox 97 06/19/17 08:00 Weight - Most Recent: 89 kg I&O - Last 24 hours: Intake & Output 06/18/17 06/19/17 06/19/17 22:59 06:59 14:59 Intake Total 1240 2746 Output Total 2250 Balance 1240 496 Lab Results - Last 24 hrs: Laboratory Results - last 24 hr 06/18/17 06/18/17 06/18/17 Range/Units :17 11:34 16:11 WBC (4.0-11.0) K/uL RBC (4.50-5.90) M/uL Hgb (13.0-17.0) g/dL Hct (38.0-50.0) % MCV (80.0-98.0) fL MCH (27.0-32.0) pg MCHC (31.0-37.0) g/dL RDW Std Deviation (28.0-62.0) fl RDW Coeff of Jessica (11.0-15.0) % Plt Count (150-400) K/uL MPV (7.40-12.00) fL Neut % (Auto) (48.0-80.0) % Lymph % (Auto) (16.0-40.0) % [place] % (Auto) (0.0-15.0) % Eos % (Auto) (0.0-7.0) % Baso % (Auto) (0.0-1.5) % Neut # (Auto) (1.4-5.7) K/uL Lymph # (Auto) (0.6-2.4) K/uL [place] # (Auto) (0.0-0.8) K/uL Eos # (Auto) (0.0-0.7) K/uL Baso # (Auto) (0.0-0.1) K/uL Nucleated RBC % /100WBC Nucleated RBCs # K/uL Sodium (136-146) mmol/L Potassium (3.5-5.1) mmol/L Chloride (98-110) mmol/L Carbon Dioxide (21-31) mmol/L BUN (6.0-23.0) mg/dL Creatinine (0.6-1.5) mg/dL Est Cr Clr Drug Dosing mL/min Estimated GFR (MDRD) ml/min Glucose (60-110) mg/dL POC Glucose 120 H 142 H 125 H (60-110) mg/dL Calcium (8.8-10.8) mg/dL Triglycerides (10-190) mg/dL Lipase (7-80) U/L 06/18/17 06/19/17 06/19/17 Range/Units 20:26 04:45 04:45 WBC 3.29 L (4.0-11.0) K/uL RBC 4.66 (4.50-5.90) M/uL Hgb 14.5 (13.0-17.0) g/dL Hct 40.8 (38.0-50.0) % MCV 87.6 (80.0-98.0) fL MCH 31.1 (27.0-32.0) pg MCHC 35.5 (31.0-37.0) g/dL RDW Std Deviation 40.6 (28.0-62.0) fl RDW Coeff of Jessica 13 (11.0-15.0) % Plt Count 173 (150-400) K/uL MPV 11.70 (7.40-12.00) fL Neut % (Auto) 48.3 (48.0-80.0) % Lymph % (Auto) 37.1 (16.0-40.0) % Humphreys % (Auto) 8.8 (0.0-15.0) % Eos % (Auto) 5.2 (0.0-7.0) % Baso % (Auto) 0.6 (0.0-1.5) % Neut # (Auto) 1.6 (1.4-5.7) K/uL Lymph # (Auto) 1.2 (0.6-2.4) K/uL Humphreys # (Auto) 0.3 (0.0-0.8) K/uL Eos # (Auto) 0.2 (0.0-0.7) K/uL Baso # (Auto) 0.0 (0.0-0.1) K/uL Nucleated RBC % 0.0 /100WBC Nucleated RBCs # 0 K/uL Sodium 138 (136-146) mmol/L Potassium 4.1 (3.5-5.1) mmol/L Chloride 109 (98-110) mmol/L Carbon Dioxide 20 L (21-31) mmol/L BUN 10 (6.0-23.0) mg/dL Creatinine 0.7 (0.6-1.5) mg/dL Est Cr Clr Drug Dosing 120.87 mL/min Estimated GFR (MDRD) > 60.0 ml/min Glucose 140 H (60-110) mg/dL POC Glucose 144 H (60-110) mg/dL Calcium 8.9 (8.8-10.8) mg/dL Triglycerides 747 H (10-190) mg/dL Lipase (7-80) U/L 06/19/17 06/19/17 06/19/17 Range/Units 04:45 06:06 08:16 WBC (4.0-11.0) K/uL RBC (4.50-5.90) M/uL Hgb (13.0-17.0) g/dL Hct (38.0-50.0) % MCV (80.0-98.0) fL MCH (27.0-32.0) pg MCHC (31.0-37.0) g/dL RDW Std Deviation (28.0-62.0) fl RDW Coeff of Jessica (11.0-15.0) % Plt Count (150-400) K/uL MPV (7.40-12.00) fL Neut % (Auto) (48.0-80.0) % Lymph % (Auto) (16.0-40.0) % Humphreys % (Auto) (0.0-15.0) % Eos % (Auto) (0.0-7.0) % Baso % (Auto) (0.0-1.5) % Neut # (Auto) (1.4-5.7) K/uL Lymph # (Auto) (0.6-2.4) K/uL Humphreys # (Auto) (0.0-0.8) K/uL Eos # (Auto) (0.0-0.7) K/uL Baso # (Auto) (0.0-0.1) K/uL Nucleated RBC % /100WBC Nucleated RBCs # K/uL Sodium (136-146) mmol/L Potassium (3.5-5.1) mmol/L Chloride (98-110) mmol/L Carbon Dioxide (21-31) mmol/L BUN (6.0-23.0) mg/dL Creatinine (0.6-1.5) mg/dL Est Cr Clr Drug Dosing mL/min Estimated GFR (MDRD) ml/min Glucose (60-110) mg/dL POC Glucose 140 H 130 H (60-110) mg/dL Calcium (8.8-10.8) mg/dL Triglycerides (10-190) mg/dL Lipase 26 (7-80) U/L Med Orders - Current: Current Medications Benzonatate (Tessalon Perles) 200 mg PO TID PRN PRN Reason: Cough Last Admin: 06/15/17 14:08 Dose: 200 mg Enoxaparin Sodium (Lovenox) 40 mg SUBCUT Q24H COUNTS INCLUDE 234 BEDS AT THE [facility] Last Admin: 06/18/17 17:26 Dose: 40 mg Gemfibrozil (Lopid) 600 mg PO BIDAC COUNTS INCLUDE 234 BEDS AT THE [facility] Last Admin: 06/19/17 07:27 Dose: 600 mg Hydromorphone HCl (Dilaudid Ply Cutter 6 Mg In Ns 30 Ml) 6 mg IV ASDIRECTED COUNTS INCLUDE 234 BEDS AT THE [facility] PRN Reason: Protocol Last Admin: 06/19/17 03:27 Dose: 6 mg Sodium Chloride (Normal Saline) 1,000 mls @ 150 mls/hr IV ASDIRECTED COUNTS INCLUDE 234 BEDS AT THE [facility] Last Admin: 06/19/17 09:57 Dose: 150 mls/hr Influenza Virus Vaccine (Fluarix Quad [id number]) 60 mcg IM .ONCE ONE Stop: 06/24/17 00:00 Insulin Aspart (Novolog) 0 unit SUBCUT ACBED COUNTS INCLUDE 234 BEDS AT THE [facility] PRN Reason: Protocol Last Admin: 06/19/17 07:17 Dose: Not Given Insulin Glargine (Lantus Solostar) 20 units SUBCUT BID COUNTS INCLUDE 234 BEDS AT THE [facility] Last Admin: 06/19/17 08:19 Dose: 20 units Loperamide HCl (Imodium) 2 mg PO Q4H PRN PRN Reason: Diarrhea Last Admin: 06/17/17 06:36 Dose: 2 mg Pantoprazole Sodium (Protonix Iv) 40 mg IV Q12HR APOLINAR Last Admin: 06/19/17 08:19 Dose: 40 mg Sodium Chloride (Saline Flush) 2.5 ml FLUSH ASDIRECTED PRN PRN Reason: Keep Vein Open Temazepam (Restoril) 15 mg PO BEDTIME PRN PRN Reason: Insomnia Last Admin: 06/16/17 22:20 Dose: 15 mg Discontinued Medications Hydromorphone HCl (Dilaudid) 1 mg IVPUSH ONETIME ONE Stop: 06/15/17 05:46 Last Admin: 06/15/17 05:56 Dose: 1 mg Sodium Chloride (Normal Saline) 1,000 mls @ 200 mls/hr IV ASDIRECTED COUNTS INCLUDE 234 BEDS AT THE [facility] Last Admin: 06/14/17 18:58 Dose: 200 mls/hr Sodium Chloride (Normal Saline) 1,000 mls @ 999 mls/hr IV .BOLUS COUNTS INCLUDE 234 BEDS AT THE [facility] Last Admin: 06/14/17 17:54 Dose: 999 mls/hr Insulin Human Regular 100 unit (/ Sodium Chloride) 100 mls @ 2 mls/hr IV TITRATE COUNTS INCLUDE 234 BEDS AT THE [facility] PRN Reason: Protocol Dextrose/Water (Dextrose 5% In Water) 1,000 mls @ 75 mls/hr IV ASDIRECTED COUNTS INCLUDE 234 BEDS AT THE [facility] Last Admin: 06/18/17 06:30 Dose: 75 mls/hr Insulin Human Regular 100 unit (/ Sodium Chloride) 100 mls @ 3 mls/hr IV ASDIRECTED COUNTS INCLUDE 234 BEDS AT THE [facility] PRN Reason: Protocol Last Admin: 06/16/17 23:29 Dose: 3 unit/hr, 3 mls/hr Influenza Virus Vaccine (Pharmacy To Dose - Influenza Vaccine) 1 each IM ONETIME ONE Stop: 06/14/17 16:53 Influenza Virus Vaccine (Fluarix Quad [id number]) 60 mcg IM .ONCE ONE Stop: 06/14/17 17:01 Last Admin: 06/16/17 12:30 Dose: 60 mcg Potassium Chloride (Potassium Chloride) 40 meq PO ONETIME ONE Stop: 06/14/17 22:22 Last Admin: 06/14/17 23:12 Dose: Not Given Potassium Chloride (Klor-Con M20) 40 meq PO ONETIME ONE Stop: 06/14/17 23:14 Last Admin: 06/14/17 23:19 Dose: 40 meq - Exam General: Reports: Alert, Oriented HEENT: Reports: Pupils Equal, EOMI Neck: Reports: Supple, Trachea Midline Lungs: Reports: Clear to Auscultation, Normal Respiratory Effort GI/Abdominal Exam: Normal Bowel Sounds, Soft Back Exam: Reports: Normal Inspection, Full Range of Motion *Q Meaningful Use (DIS) - VTE *Q VTE Criteria *Q: - Stroke *Q Stroke Criteria *Q: - AMI *Q AMI Criteria *Q:
[2017-06-23] MEDS ORDERED: FLU Vacc QS 2017-18 (36mos UP)/PF 60 MCG/0.5 ML Syringe IM ONE (23:59)
== END 2017-06-19 12:15 | disposition home or self-care (01) | DRG 440 ==
LOC: MW.MS 16:02 → MW.ICU 18:10 → MW.MS 06-15 21:48
PROVIDERS: ADMIT Internal Medicine; ATTEND Internal Medicine
DX: K85.90 Acute pancreatitis without necrosis or infection, unspecified (principal); E78.1 Pure hyperglyceridemia; R19.7 Diarrhea, unspecified; R05 Cough; E10.649 Type 1 diabetes mellitus with hypoglycemia without coma; I10 Essential (primary) hypertension; E78.00 Pure hypercholesterolemia, unspecified; Z79.4 Long term (current) use of insulin; Z79.899 Other long term (current) drug therapy
CPT/HCPCS: 36415; 74176; 74176-26; 80048; 80053; 80061; 82150; 82962; 83690; 84478; 85025; 87324; 90686; A9270-GY; C9113; G0008; J1170; J1650; J1815-GY ×2; J7030; J7040; J7060

== ENCOUNTER 2018-12-19 22:10 | Emergency (ER) | payer SELFPAY ==
[2018-12-19 22:54] VITALS: BP 132/71
--- NOTE | 2018-12-19 23:06 | CR ---
INDICATION: Trauma 2nd digit TECHNIQUE: Reviews of 10 COMPARISON: None FINDINGS: Bones: Displaced fracture distal tuft 2nd digit. Remote trauma would distal tuft 4th digit. Joint spaces: Unremarkable. Soft tissues: Dorsal laceration adjacent to the distal tuft 2nd digit. IMPRESSION: Displaced fracture distal tuft 2nd digit with adjacent dorsal laceration. Dictated by Kaz Davis MD @ 12/19/2018 11:05:43 PM Dictated by: Kaz Davis MD @ 12/19/2018 23:05:51 (Electronically Signed)
[2018-12-19] MEDS ORDERED: Acetaminophen/HYDROcodone 325-5 MG Tab PO ONE (23:08)
[2018-12-19] MEDS ORDERED: Diphtheria,Pertussis(Acell),Tetanus Vaccine 0.5 ML Syringe IM ONE (23:08)
--- NOTE | 2018-12-19 23:11 | EDM.PDOC ---
ED HPI GENERAL MEDICAL PROBLEM - General Chief Complaint: Upper Extremity Injury/Pain Stated Complaint: SMASHED FINGER ON LT HAND IN CAR DOOR Time Seen by Provider: 12/19/18 23:02 - History of Present Illness INITIAL COMMENTS - FREE TEXT/NARRATIVE: HISTORY AND PHYSICAL: History of present illness: The patient is a 48-year-old male who presents for evaluation of his left index finger which he got the distal tip caught in a car door yesterday at about p.m. The wound is approximately 29-30 hours old. He came in for persistent pain and concern because there was some bleeding from it that did not occurred throughout the day and did occur this evening. He has not been taking anything [id number] for pain. He says he is right-handed. He says that the only site of pain is of the distal part of the left index finger and the remainder of the fingers and hands are without tenderness or issues. He has no other systemic complaints and he is unsure of his last tetanus shot Review of systems: As per history of present illness and below otherwise all systems reviewed and negative. Past medical history: As per history of present illness and as reviewed below otherwise noncontributory. Surgical history: As per history of present illness and as reviewed below otherwise noncontributory. Social history: No reported history of drug or alcohol abuse. Family history: As per history of present illness and as reviewed below otherwise noncontributory. Physical exam: General: Well-developed well-nourished man who is nontoxic and vital signs are noted by me HEENT: Atraumatic, normocephalic, negative for conjunctival pallor or scleral icterus, mucous membranes moist, throat clear, neck supple, nontender, trachea midline. Lungs: Clear to auscultation, breath sounds equal bilaterally, chest nontender. Heart: S1S2, regular rate and rhythm no overt murmurs Abdomen: Soft, nondistended, nontender. NABS Pelvis: Deferred Genitourinary: Deferred. Rectal: Deferred. Extremities: Atraumatic, full range of motion of all extremities with the exception of the left index finger where the proximal and middle phalanx are intact and the remainder of the fingers are without bony defects deformities or soft tissue changes but at the distal phalanx of the left index finger there is diffuse circumferential swelling and tenderness. The nail and nailbed are disrupted with the proximal aspect of the nail exposed and the surrounding tissue is macerated but no active bleeding is appreciated. Neurovascular unremarkable. Neuro: Awake, alert, oriented. Cranial nerves II through XII unremarkable. Cerebellum unremarkable. Motor and sensory unremarkable throughout. Exam nonfocal. Diagnostics: Hand x-ray Therapeutics: Tdap, irrigation bacitracin and tube gauze, Keflex by mouth, maribell strips per nursing I discussed with the patient as the wound is so old, over 24 hours, there is little I can do with the wound care and the tissue at the base of the nail is so macerated that we will attempt to just Steri-Strip the nail more flatly so as not to avoid more trauma but I will not attempt to replace it into the nail bed. He is aware that this is an open fracture and that he will need follow-up with hand and that our hand specialist is on maternity leave. I will give him referrals to the hand specialist at [facility]. I've given him Keflex here as well as Keflex for home and pain management. Impression: Left index finger injury, open distal tuft fracture with disruption of the nailbed Definitive disposition and diagnosis as appropriate pending reevaluation and review of above. left index Pain Score (Numeric/FACES): 5 - Related Data Allergies Allergy/AdvReac Type Severity Reaction Status Date / Time No Known Allergies Allergy Verified 12/19/18 22:50 Home Meds: Home Meds Cyclobenzaprine HCl 10 mg PO BID PRN 06/14/17 [History] Gemfibrozil [Lopid] 600 mg PO BID 06/14/17 [History] traMADol HCl [Tramadol HCl] 50 mg PO BID PRN 06/14/17 [History] Past Medical History HEENT History: Reports: Impaired Vision, Other (See Below) Other HEENT History: wears eyeglasses Cardiovascular History: Reports: High Cholesterol, Hypertension Respiratory History: Reports: None Gastrointestinal History: Reports: Pancreatitis Other Gastrointestinal History: dx with pancreatitis 6 years ago. Genitourinary History: Reports: None Musculoskeletal History: Reports: Back Pain, Chronic, Other (See Below) Other Musculoskeletal History: Sees a pain specialist in [place] for back shoulder pain Neurological History: Reports: None Psychiatric History: Reports: None Endocrine/Metabolic History: Reports: Diabetes, Type II Hematologic History: Reports: None Immunologic History: Reports: None Oncologic (Cancer) History: Reports: None Dermatologic History: Reports: None - Infectious Disease History Infectious Disease History: Reports: None - Past Surgical History Head Surgeries/Procedures: Reports: None Musculoskeletal Surgical History: Reports: None Social & Family History - Family History Family Medical History: Unobtainable HEENT: Reports: Impaired Vision Cardiac: Reports: CAD, ID OBGYN: Reports: Musculoskeletal: Reports: Arthritis, Back pain, Chronic Endocrine/Metabolic: Reports: Diabetes, type II - Tobacco Use Smoking Status *Q: Never Smoker - Caffeine Use Caffeine Use: Reports: Soda - Recreational Drug Use Recreational Drug Use: No Review of Systems - Review of Systems Review Of Systems: ROS reveals no pertinent complaints other than HPI. ED EXAM, GENERAL - Physical Exam Exam: See Below (See dictation) Course - Vital Signs Last Recorded V/S: Last Vital Signs Temp 36.1 C 12/19/18 22:40 Pulse 98 12/19/18 22:40 Resp 18 12/19/18 22:40 BP 132/71 12/19/18 22:40 Pulse Ox 98 12/19/18 22:40 - Orders/Labs/Meds Orders: Active Orders 24 hr Category Date Time Status Communication Order [RC] STAT Care 12/19/18 23:20 Ordered Vaccines to be Administered [RC] PER UNIT ROUTINE Care 12/19/18 23:08 Active Bacitracin [Bacitracin Oint 1 GM] Med 12/19/18 23:20 Once 1 dose TOP ONETIME ONE Meds: Medications Discontinued Medications Generic Name Dose Route Start Last Admin Trade Name Freq PRN Reason Stop Dose Admin Hydrocodone Bitart/Acetaminophen 1 tab 12/19/18 23:08 Keno 325-5 Mg PO 12/19/18 23:09 ONETIME ONE Cephalexin 500 mg 12/19/18 23:13 Keflex PO 12/19/18 23:14 ONETIME ONE Diphtheria/Tetanus/Acell Pertussis 0.5 ml 12/19/18 23:08 Adacel IM 12/19/18 23:09 .ONCE ONE Departure - Departure Time of Disposition: 23:23 Disposition: Home, Self-Care 01 Condition: Good Clinical Impression: Open fracture of tuft of distal phalanx of finger, Nailbed avulsion - Discharge Information Referrals: PCP,None [Primary Care Provider] - Forms: ED Department Discharge Additional Instructions: The following information is given to patients seen in the emergency department who are being discharged to home. This information is to outline your options for follow-up care. We provide all patients seen in our emergency department with a follow-up referral. The need for follow-up, as well as the timing and circumstances, are variable depending upon the specifics of your emergency department visit. If you don't have a primary care physician on staff, we will provide you with a referral. We always advise you to contact your personal physician following an emergency department visit to inform them of the circumstance of the visit and for follow-up with them and/or the need for any referrals to a consulting specialist. The emergency department will also refer you to a specialist when appropriate. This referral assures that you have the opportunity for followup care with a specialist. All of these measure are taken in an effort to provide you with optimal care, which includes your followup. Under all circumstances we always encourage you to contact your private physician who remains a resource for coordinating your care. When calling for followup care, please make the office aware that this follow-up is from your recent emergency room visit. If for any reason you are refused follow-up, please contact the [facility] emergency department at and ask to speak to the emergency department charge nurse. Dr. Chaparro Hilario [facility] [address] [place] [id number] @ Dr Perkins & Dr Hitchcock [facility] [address] [facility] [id number] [address] Weller [facility] [address] [address] Please take antibiotics as directed as this fracture is open and leave the dressing that was placed on in the ED for the next 24 hours then removing cleanse with mild soap and water pat dry and cover with a gauze dressing. Do not use Band-Aids as this will injure the tissue and delayed wound healing. Please connect with one of our hand specialist using resources given to above and the closest would be the doctors at [facility]. Take antibiotics you have been given, Keflex, to prevent further infection and return to ER as needed and as discussed. You may also take pain medication if Tylenol and ibuprofen does not work, Dot. - My Orders Last 24 Hours: My Active Orders 12/19/18 23:08 Vaccines to be Administered [RC] PER UNIT ROUTINE 12/19/18 23:20 Communication Order [RC] STAT Bacitracin [Bacitracin Oint 1 GM] 1 dose TOP ONETIME ONE - Assessment/Plan Last 24 Hours: My Active Orders 12/19/18 23:08 Vaccines to be Administered [RC] PER UNIT ROUTINE 12/19/18 23:20 Communication Order [RC] STAT Bacitracin [Bacitracin Oint 1 GM] 1 dose TOP ONETIME ONE
[2018-12-19] MEDS ORDERED: Cephalexin 500 MG Cap PO ONE (23:13)
[2018-12-19] MEDS ORDERED: Bacitracin Oint 1 GM U/D Packet TOP ONE (23:20)
== END 2018-12-19 23:45 | disposition home or self-care (01) ==
LOC: MW.ED 22:10
DX: S62.631B Displaced fracture of distal phalanx of left index finger, initial encounter for open fracture (principal); E11.9 Type 2 diabetes mellitus without complications; Z79.899 Other long term (current) drug therapy; W23.0XXA Caught, crushed, jammed, or pinched between moving objects, initial encounter; E78.00 Pure hypercholesterolemia, unspecified; I10 Essential (primary) hypertension; Z23 Encounter for immunization
CPT/HCPCS: 73130-26-LT; 73130-LT; 99283